=== PATIENT | male | born 1975 | race Caucasian/White ===

== ENCOUNTER 2018-08-03 19:12 | Emergency (ER) | payer SELFPAY ==
[2018-08-03] MEDS ORDERED: NORMAL SALINE 1000 ML 1,000 ML IV ONE (19:39)
[2018-08-03] MEDS ORDERED: ONDANSETRON HCL INJ/PF 4 MG/2 ML SDV IV ONE (19:49)
[2018-08-03] MEDS ORDERED: MORPHINE SULFATE 10 MG/ML INJ IV ONE ×2 (19:49→23:35)
--- NOTE | 2018-08-03 20:41 | RADIOLOGY REPORT (SQ) ---
EXAM DESCRIPTION: ACUTE ABDOMEN SERIES COMPLETED DATE/TIME: 08/03/2018 8:10 pm REASON FOR STUDY: Abdominal pain COMPARISON: None. NUMBER OF VIEWS: Three views. TECHNIQUE: Frontal chest, supine abdomen and upright/decubitus abdomen radiographic images acquired. LIMITATIONS: None. FINDINGS: CHEST: Lungs clear of infiltrates. FREE AIR: None. No abnormal gas collections. BOWEL GAS PATTERN: Nonobstructive pattern. No dilated loops or air fluid levels. CALCIFICATIONS: No suspicious calcifications. HARDWARE: None in the abdomen. SOFT TISSUES: No gross mass or suggestion of organomegaly. BONES: No acute fracture. No worrisome bone lesions. OTHER: No other significant finding. IMPRESSION: NO RADIOGRAPHIC EVIDENCE FOR ACUTE ABDOMINAL DISEASE. TECHNICAL DOCUMENTATION: JOB ID: [id number] [employer]- All Rights Reserved Reading location - IP/workstation name: [email or web address]
[2018-08-03 21:06] LABS: ABSOLUTE BASOPHILS # (AUTO) 0.1 10^3/uL (0.0-0.2); ABSOLUTE EOSINOPHILS # (AUTO) 0.2 10^3/uL (0.0-0.6); ABSOLUTE LYMPHOCYTES (AUTO) 1.5 10^3/uL (0.5-4.7); ABSOLUTE MONOCYTES (AUTO) 0.7 10^3/uL (0.1-1.4); ABSOLUTE NEUT (AUTO) 3.7 10^3/uL (1.7-8.2); EOSINOPHILS % (AUTO) 3.4 % (0-6); HEMATOCRIT 46.8 % (37.9-51.0); HEMOGLOBIN 16.5 g/dL (13.5-17.0); LYMPHOCYTES % (AUTO) 24.6 % (13-45); MEAN CORPUSCULAR HEMOGLOBIN 32.8 pg (27.0-33.4); MEAN CORPUSCULAR HGB CONC 35.4 g/dL (32.0-36.0); MEAN CORPUSCULAR VOLUME 93 fl (80-97); MONOCYTES % (AUTO) 10.8 % (3-13); PLATELET COUNT 163 10^3/uL (150-450); RED BLOOD COUNT 5.05 10^6/uL (4.35-5.55); RED CELL DISTRIBUTION WIDTH 13.4 % (11.5-14.0); SEGMENTED NEUTROPHILS % (AUTO) 60.2 % (42-78); TOTAL CELLS COUNTED % (AUTO) 100 %; WHITE BLOOD COUNT 6.1 10^3/uL (4.0-10.5)
--- NOTE | 2018-08-03 21:07 | ER Document Report ---
ED General - General Chief Complaint: Lower Abdominal Pain Stated Complaint: ABDOMINAL PAIN Time Seen by Provider: 08/03/18 19:38 Notes: Patient is a 43-year-old male who presents to the emergency department with testicular pain which started at 5:00 this morning. He states, "I feel like somebody is crushing my balls." He states his pain is a 10/10. Nothing makes the pain better or worse. The pain originates in his testicles and radiates to his lower abdomen. He stated that he attempted to ejaculate to try to relieve the pain, but it did not. Patient states he has not been sexually active in many years. He has a past medical history of Crohn's disease, in which he states he has run out of his medications these past few weeks. His other medical history includes pancreatitis and GERD. TRAVEL OUTSIDE OF THE [place] IN LAST 30 DAYS: No - HPI Onset/Duration: Sudden - Related Data Allergies/Adverse Reactions: hydrocodone bitartrate [From Vicodin] Allergy (Unknown, Verified 05/14/13 23:49) Past Medical History - Social History Smoking Status: Current Every Day Smoker Chew tobacco use (# tins/day): No Frequency of alcohol use: Occasional Drug Abuse: None Family History: Reviewed & Not Pertinent Patient has suicidal ideation: No Patient has homicidal ideation: No - Past Medical History Cardiac Medical History: Denies: Hx Coronary Artery Disease, Hx Heart Attack, Hx Hypertension Pulmonary Medical History: Denies: Hx Asthma, Hx Bronchitis, Hx COPD, Hx Pneumonia Neurological Medical History: Denies: Hx Cerebrovascular Accident, Hx Seizures Renal/ Medical History: Denies: Hx Peritoneal Dialysis GI Medical History: Reports: Hx Gastroesophageal Reflux Disease Musculoskeletal Medical History: Denies Hx Arthritis Psychiatric Medical History: Denies: Hx Depression Past Surgical History: Denies: Hx Pacemaker - Immunizations Immunizations up to date: Yes Hx Diphtheria, Pertussis, Tetanus Vaccination: Yes Hx Pneumococcal Vaccination: 11/01/00 Physical Exam - Vital signs Vitals: Temp Pulse Resp BP Pulse Ox 98.3 F 133 H 22 H 155/93 H 98 08/03/18 19:21 08/03/18 19:21 08/03/18 19:21 08/03/18 19:21 08/03/18 19:21 - Respiratory Respiratory status: No respiratory distress Chest status: Nontender Breath sounds: Normal Chest palpation: Normal - Cardiovascular Pulses: Normal: Radial, Dorsalis pedis - Abdominal Inspection: Normal Bowel sounds: Normal Tenderness: Tender - Lower abdomen - Genitourinary Tenderness: Testicle tender Course - Re-evaluation Re-evalutation: 08/03/18 21:07 Patient's abdominal x-rays are negative at this time. He is currently going to ultrasound for evaluation of his testicular pain. Cremasteric reflex was tested with SHEBA Sebastian at bedside. Patient has a positive cremasteric reflex, therefore I do not suspect testicular torsion. Labs and further imaging will be evaluated when they result. 08/04/18 00:30 I have contacted ultrasound to follow-up on results of scrotal ultrasound, and was told that for some reason the reports are not resulting from the radiologist. Ultrasound will contact the radiologist and send study to the radiologist. 08/04/18 01:02 Patient reevaluated at this time he states his pain is better than before. 08/04/18 01:37 Patient's scrotal ultrasound was reviewed at this time. Patient has a varicocele on his left side. Patient was educated on home treatment for varicoceles. He verbally understands his discharge instructions and states he will buy supportive briefs to help with his varicocele - Vital Signs Vital signs: Temp Pulse Resp BP Pulse Ox 98.3 F 133 H 18 117/72 98 08/03/18 19:21 08/03/18 19:21 08/04/18 01:01 08/04/18 01:01 08/04/18 01:01 - Laboratory Result Diagrams: 08/03/18 20:43 08/03/18 20:43 Laboratory results interpreted by me: 08/03/18 20:43 BUN 6 L Direct Bilirubin 0.6 H AST 236 H ALT 254 H Discharge - Discharge Clinical Impression: Varicocele, Scrotal pain, Elevated liver enzymes Condition: Stable Disposition: HOME, SELF-CARE Additional Instructions: You have been diagnosed with a varicocele. Please use supportive briefs to help decrease the pain in your scrotum. You can use [id number] Aleve 500 mg twice a day as needed for pain. Please follow-up in 2-3 days with your primary care provider. Your labs showed that you have elevated liver enzymes. Please follow-up with your primary care provider in regards to this matter. If you feel your symptoms are getting worse, have shortness of breath, worsening scrotal pain, fever, or anything worrisome to you, please return to the emergency department for further evaluation. Referrals: HEMA KERNS PA-C [ALLIED HEALTH PROFESSIONAL] - Follow up as needed
[2018-08-03 21:16] LABS: ALANINE AMINOTRANSFERASE 254 U/L (21-72); ALBUMIN 4.4 g/dL (3.5-5.0); ALKALINE PHOSPHATASE 112 U/L (38-126); ANION GAP 12 (5-19); ASPARTATE AMINO TRANSFERASE 236 U/L (17-59); BILIRUBIN,DIRECT 0.6 mg/dL (0.0-0.4); BILIRUBIN,TOTAL 0.6 mg/dL (0.2-1.3); BLOOD UREA NITROGEN 6 mg/dL (7-20); CALCIUM 9.4 mg/dL (8.4-10.2); CARBON DIOXIDE 23 mmol/L (22-30); CHLORIDE 103 mmol/L (98-107); GLUCOSE 101 mg/dL (75-110); LIPASE 139.2 U/L (23-300); POTASSIUM 4.2 mmol/L (3.6-5.0); SODIUM 137.7 mmol/L (137-145); TOTAL PROTEIN 7.9 g/dL (6.3-8.2)
[2018-08-03 21:31] LABS: APPEARANCE,URINE CLEAR; BILIRUBIN,URINE NEGATIVE (NEGATIVE); COLOR,URINE STRAW; GLUCOSE, URINE NEGATIVE (NEGATIVE); KETONES,URINE NEGATIVE (NEGATIVE); LEUKOCYTE ESTERASE,URINE NEGATIVE (NEGATIVE); NITRITE,URINE NEGATIVE (NEGATIVE); PROTEIN,URINE NEGATIVE (NEGATIVE); URINE SPECIFIC GRAVITY 1.002; UROBILINOGEN,URINE NEGATIVE mg/dL (<2.0)
[2018-08-03 21:46] LABS: URINE AMPHETAMINES SCREEN NEGATIVE; URINE BARBITURATES SCREEN NEGATIVE; URINE BENZODIAZEPINES SCREEN NEGATIVE; URINE COCAINE SCREEN NEGATIVE; URINE MARIJUANA (THC) SCREEN NEGATIVE; URINE METHADONE SCREEN NEGATIVE; URINE PHENCYCLIDINE SCREEN NEGATIVE
--- NOTE | 2018-08-04 01:07 | RADIOLOGY REPORT (SQ) ---
EXAM DESCRIPTION: US SCROTUM COMPLETED DATE/TME: 08/03/2018 19:39 CLINICAL HISTORY: 43 years Male, Scrotal pain rule out torsion COMPARISON: None. TECHNIQUE: Real-time sonographic images of the scrotal contents obtained using a linear multi hertz transducer. Color and spectral Doppler imaging was also obtained. FINDINGS: Testicles: The right testicle measures 4.5 x 3.0 x 3.7 cm. The left testicle measures 5.0 x 2.6 x 3.4 cm. No solid intratesticular mass identified. Homogenous echogenicity of the testicles. Epididymis:No abnormalities of the epididymis. Hydrocele:No hydrocele. Blood flow:Normal arterial and venous blood flow identified bilaterally. Other: Dilation of the left peritesticular veins IMPRESSION: 1. Blood flow identified in the testicles bilaterally. 2. Left-sided varicocele.
[2018-08-04 02:20] VITALS: BP 109/79
== END 2018-08-04 02:28 | disposition home or self-care (01) ==
LOC: ER 19:12
DX: I86.1 Scrotal varices (principal); N50.819 Testicular pain, unspecified; R74.8 Abnormal levels of other serum enzymes; F17.200 Nicotine dependence, unspecified, uncomplicated; Z88.5 Allergy status to narcotic agent
CPT/HCPCS: 96376; 99284; 96361; 96374; 96375; 36415; 83690; 85025; 80053; 81001; 80307; 74022; 76870; J2270; J2405

== ENCOUNTER 2018-09-26 07:09 | Emergency (ER) | payer SELFPAY ==
[2018-09-26] MEDS ORDERED: KETOROLAC TROMETHAMINE 60 MG/2 ML SDV IM ONE (07:35)
--- NOTE | 2018-09-26 07:40 | ER Document Report ---
HPI - HPI Pain Level: 4 Notes: Patient is a 43-year-old male with a history of carpal tunnel syndrome and Crohn 's disease who presents to the ED complaining of acute on chronic left wrist pain over the last week. Patient states that he does work a lot with his hands and is not sure if the fall he had last week is causing his pain or other repetitive motion and flareup of his carpal tunnel. Patient states that the pain is primarily to his anterior wrist and will radiate proximally and send tingling/numbness to his fingers. He has not noticed any obvious bruising or swelling otherwise. He has been using his volar wrist splint regularly. He has not been seen by a specialist for this issue. No other concerns or complaints. Denies any headache, fever, URI, sore throat, chest pain, palpitations, syncope, cough, shortness of breath, wheeze, dyspnea, abdominal pain, nausea/vomiting/diarrhea, urinary retention, dysuria, hematuria, saddle anesthesia, muscle paralysis/weakness, or rash. - ROS Systems Reviewed and Negative: Yes All other systems reviewed and negative - REPRODUCTIVE Reproductive: DENIES: : Past Medical History - Social History Smoking Status: Current Every Day Smoker Family History: Reviewed & Not Pertinent - Past Medical History Cardiac Medical History: Denies: Hx Coronary Artery Disease, Hx Heart Attack, Hx Hypertension Pulmonary Medical History: Denies: Hx Asthma, Hx Bronchitis, Hx COPD, Hx Pneumonia Neurological Medical History: Denies: Hx Cerebrovascular Accident, Hx Seizures Renal/ Medical History: Denies: Hx Peritoneal Dialysis GI Medical History: Reports: Hx Gastroesophageal Reflux Disease Musculoskeletal Medical History: Denies Hx Arthritis Psychiatric Medical History: Denies: Hx Depression Past Surgical History: Denies: Hx Pacemaker - Immunizations Immunizations up to date: Yes Hx Diphtheria, Pertussis, Tetanus Vaccination: Yes Hx Pneumococcal Vaccination: 11/01/00 Vertical Provider Document - CONSTITUTIONAL Agree With Documented VS: Yes Notes: PHYSICAL EXAMINATION: GENERAL: Well-appearing, well-nourished and in no acute distress. LUNGS: Breath sounds clear to auscultation bilaterally and equal. No wheezes rales or rhonchi. HEART: Regular rate and rhythm without murmurs, rubs, gallops. Musculoskeletal: Left wrist: FROM to passive/active. Strength 5+/5. N/V intact distal. + mild anterior tenderness to palp and to the lateral carpal bones, no scaphoid tenderness. + mild swelling. No ecchymosis, erythema, or deformity. + tinel/phalen. Extremities: No cyanosis, clubbing, or edema b/l. Peripheral pulses 2+. Capillary refill less than 3 seconds. NEUROLOGICAL: Normal speech, normal gait. Normal sensory, motor exams PSYCH: Normal mood, normal affect. SKIN: Warm, Dry, normal turgor, no rashes or lesions noted. - INFECTION CONTROL TRAVEL OUTSIDE OF THE [place] IN LAST 30 DAYS: No Course - Re-evaluation Re-evalutation: 09/26/18 09:25 Patient is an afebrile, well-hydrated, 43 year-old male who presents to the ED with a possible avulsion fracture to the left carpal bones/wrist with s/s of CTS. Vitals are acceptable without any significant tachycardia, tachypnea, or hypoxia. PE is otherwise unremarkable for any neurovascular compromise, obvious tendon/ligament rupture, open fracture, septic joint. See XR result. Splint applied today and provided. Toradol given IM. Patient is nontoxic- appearing. No other labs or imaging warranted at this time based on H&P. Conservative measures otherwise for symptoms. Recheck with your PCM in 3-5 days. Call orthopedics tomorrow to schedule an appointment for further evaluation and management. Return to the ED with any worsening/concerning symptoms otherwise as reviewed in discharge. Patient is in agreement. - Vital Signs Vital signs: Temp Pulse Resp BP Pulse Ox 98.0 F 106 H 18 134/73 H 99 09/26/18 07:21 09/26/18 07:21 09/26/18 07:21 09/26/18 07:21 09/26/18 07:21 Procedures - Immobilization Left Wrist Time completed: 09:20 Pre-Proc Neuro Vasc Exam: Normal Immobilizer type: Volar splint Performed by: PCT Post-Proc Neuro Vasc Exam: Normal, Unchanged from pre-exam Discharge - Discharge Clinical Impression: Avulsion fracture of left wrist Carpal tunnel syndrome Qualifiers: Laterality: left Qualified Code(s): G56.02 - Carpal tunnel syndrome, left upper limb Condition: Stable Disposition: HOME, SELF-CARE Instructions: Splint Precautions ([facility]) Additional Instructions: Rest, Ice, Compression, Elevation Use splint as directed Tylenol/ibuprofen as needed F/u with your PCP in 3-5 days for a recheck Call orthopedics tomorrow to schedule an appointment for further evaluation and management Return to the ED with any worsening symptoms and/or development of fever, headache, chest pain, palpitations, syncope, shortness of breath, trouble breathing, abdominal pain, n/v/d, muscle weakness/paralysis, numbness/tingling, swelling, redness, or other worsening symptoms that are concerning to you. Prescriptions: Naproxen 500 mg PO BID #14 tablet Forms: Elevated Blood Pressure, Smoking Cessation Education Referrals: ZAY REED FNP [NURSE PRACTITIONER] - Follow up as needed [facility] [Provider Group] - Follow up in 3-5 days
--- NOTE | 2018-09-26 08:30 | RADIOLOGY REPORT (SQ) ---
EXAM DESCRIPTION: WRIST LEFT 3 VIEWS COMPLETED DATE/TIME: 09/26/2018 7:45 am REASON FOR STUDY: left wrist pain fell 1 week ago with continued pain and swelling COMPARISON: None. NUMBER OF VIEWS: Three views. TECHNIQUE: AP, lateral, and oblique radiographic images acquired of the left wrist. LIMITATIONS: None. FINDINGS: MINERALIZATION: Normal. BONES: On the lateral view, a small bone fragment is seen along the dorsal carpal bones which may rep resent a small avulsion fragment off the hamate. Remainder of the carpal bones are intact. No scaphoid bone fracture is identified. Minimal widening of the scapholunate interval. SOFT TISSUES: Diffuse left wrist soft tissue swelling. No foreign body. OTHER: No other significant finding. IMPRESSION: Small bony fragment is seen on the lateral view, along the dorsal aspect of the carpal b ones. This may represent a small avulsion off the hamate or capitate bone. Diffuse left wrist soft tissue swelling TECHNICAL DOCUMENTATION: JOB ID: [id number] [employer]- All Rights Reserved Reading location - IP/workstation name: [email or web address]
[2018-09-26 09:49] VITALS: BP 141/88
== END 2018-09-26 09:47 | disposition home or self-care (01) ==
LOC: ER 07:09
DX: S62.102A Fracture of unspecified carpal bone, left wrist, initial encounter for closed fracture (principal); W19.XXXA Unspecified fall, initial encounter; G56.02 Carpal tunnel syndrome, left upper limb; F17.200 Nicotine dependence, unspecified, uncomplicated
CPT/HCPCS: 99283; 96372; 73110; 29125; J1885

== ENCOUNTER 2018-12-10 19:32 | Emergency (ER) | payer SELFPAY ==
[2018-12-10] MEDS ORDERED: LIDOCAINE 2% VISCOUS SOLN 20 ML UDCUP PO ONE (20:31)
[2018-12-10] MEDS ORDERED: IBUPROFEN 600 MG TABLET PO ONE (20:35)
[2018-12-10] MEDS ORDERED: ACETAMINOPHEN 325 MG TABLET PO ONE (20:35)
--- NOTE | 2018-12-10 20:37 | ER Document Report ---
HPI - HPI Time Seen by Provider: 12/10/18 20:30 Pain Level: 5 Notes: Patient is a 43-year-old male who presents the emergency department complaining of a stye to each lower eyelid that has been present for the last 1-2 days. Patient states that he has had styes in the past that caused similar discomfort and pain. Patient states he does not open his eyes because it hurts. Patient states that he has not been scratching in his eye and he does not have any foreign body sensation. Patient states that the pain is strictly to the styes to the lower eyelids. No other concerns or complaints. He does not wear contact lenses. Denies any fever, head injury, neck pain, changes in vision/speech/mentation/hearing, URI, sore throat, chest pain, palpitations, syncope, cough, shortness of breath, wheeze, dyspnea, abdominal pain, nausea/vomiting/diarrhea, urinary retention, dysuria, hematuria, or rash. - ROS Systems Reviewed and Negative: Yes All other systems reviewed and negative - REPRODUCTIVE Reproductive: DENIES: : Past Medical History - Social History Smoking Status: Unknown if Ever Smoked Family History: Reviewed & Not Pertinent - Past Medical History Cardiac Medical History: Denies: Hx Coronary Artery Disease, Hx Heart Attack, Hx Hypertension Pulmonary Medical History: Denies: Hx Asthma, Hx Bronchitis, Hx COPD, Hx Pneumonia Neurological Medical History: Denies: Hx Cerebrovascular Accident, Hx Seizures Renal/ Medical History: Denies: Hx Peritoneal Dialysis GI Medical History: Reports: Hx Gastroesophageal Reflux Disease Musculoskeletal Medical History: Denies Hx Arthritis Psychiatric Medical History: Denies: Hx Depression Past Surgical History: Denies: Hx Pacemaker - Immunizations Immunizations up to date: Yes Hx Diphtheria, Pertussis, Tetanus Vaccination: Yes Hx Pneumococcal Vaccination: 11/01/00 Vertical Provider Document - CONSTITUTIONAL Agree With Documented VS: Yes Notes: PHYSICAL EXAMINATION: GENERAL: Well-appearing, well-nourished and in no acute distress. A&Ox4 HEAD: Atraumatic, normocephalic. EYES: Pupils equal round and reactive to light, extraocular movements intact, sclera anicteric, conjunctiva w/o discharge or matting. Non-tender to palp of the globe and eye itself. No surrounding erythema or swelling noted. + stye to the left lower lid and to the rt lower lid. The stye on the left has a white abscess appearance, although small. + tenderness to the styes b/l. ENT: EAC clear b/l. TM's intact b/l without erythema, fluid, or perforation. Nares patent and without discharge. oropharynx clear without exudates. No tonsilar hypertrophy or erythema. Moist mucous membranes. No sinus tenderness. Uvula midline. No palatine shift. No airway compromise. No drooling or hoarseness. NECK: Normal range of motion, supple without lymphadenopathy. No rigidity/meningismus. LUNGS: Breath sounds clear to auscultation bilaterally and equal. No wheezes rales or rhonchi. HEART: Regular rate and rhythm without murmurs, rubs, gallops. NEUROLOGICAL: Cranial nerves grossly intact. Normal speech, normal gait. PSYCH: Normal mood, normal affect. SKIN: see above. - INFECTION CONTROL TRAVEL OUTSIDE OF THE [place] IN LAST 30 DAYS: No Course - Re-evaluation Re-evalutation: 12/10/18 20:40 Patient is an afebrile, well-hydrated, 43-year-old male who presents the emergency department with bilateral stye. Vitals are acceptable without significant tachycardia, tachypnea, or hypoxia. PE is otherwise unremarkable. A needle puncture incision and drainage was performed on the left lower stye with some purulent material expressed and wound culture obtained. Patient was given 2-3 cc viscous lidocaine to use as needed only on the styes (outside). No labs or imaging otherwise warranted. Low suspicion for any retained corneal or lid foreign body, deep space infection including orbital cellulitis/abscess, acute glaucoma, penetrating globe injury, retinal detachment, meningitis, sepsis, fracture, compartment syndrome. I will send home with a prescription for erythromycin ointment to use as directed. Conservative measures otherwise for symptoms with proper handwashing. Recheck with your PCM in 3-5 days. Schedule a f/u with Ophthalmology next week. Return to the ED with any worsening/concerning symptoms otherwise as reviewed in discharge. Patient is in agreement. - Vital Signs Vital signs: Temp Pulse Resp BP Pulse Ox 98.3 F 102 H 20 163/92 H 98 12/10/18 19:45 12/10/18 19:45 12/10/18 19:45 12/10/18 19:45 12/10/18 19:45 Procedures - Incision and Drainage Left Eye Time completed: 20:30 Type: Simple Incision Method: Incision made with needle - 25g Amount/type of drainage: scant purulent Discharge - Discharge Clinical Impression: Bilateral Styes lower eyelid Hordeolum externum (stye) Qualifiers: Laterality: unspecified laterality Qualified Code(s): H00.019 - Hordeolum externum unspecified eye, unspecified eyelid Condition: Stable Disposition: HOME, SELF-CARE Additional Instructions: Keep eyes clean Avoid scratching/touching eyes Wash hands regularly Use eye drops as directed Maintain adequate fluid intake tylenol/ibuprofen as needed over the counter cold medication as needed for symptoms F/u: with your PCM in 3-5 days for a recheck Consider consult with Ophthalmology for ongoing/worsening symptoms Return to the ED with any worsening symptoms and/or development of fever, headache, changes in vision, eye pain, worsening eye redness, redness around the eyes, purulent discharge, sore throat, facial swelling, neck pain/stiffness, chest pain, palpitations, syncope, shortness of breath, trouble breathing, abdominal pain, n/v/d, blood in stool/urine, dysuria, or other worsening symptoms that are concerning to you. Prescriptions: Erythromycin Base [Erythromycin Oph 1 gm Oint Ud] 1 applic OU QID #1 tube Forms: Elevated Blood Pressure Referrals: FLOWER JETER MD [ACTIVE STAFF] - Follow up as needed
[2018-12-10 20:51] VITALS: BP 149/88
== END 2018-12-10 20:50 | disposition home or self-care (01) ==
LOC: ER 19:32
DX: H00.015 Hordeolum externum left lower eyelid (principal); H00.012 Hordeolum externum right lower eyelid
CPT/HCPCS: 99283; 87070; 87205; 87075; 67700; J3490

== ENCOUNTER 2019-04-28 08:01 | Emergency (ER) | payer SELFPAY ==
[2019-04-28] MEDS ORDERED: EPINEPHRINE INJ/PF 1 MG/1 ML AMPULE ONE (08:11)
[2019-04-28] MEDS ORDERED: METHYLPREDNISOLONE INJ 125 MG/2 ML SDV ONE (08:15)
[2019-04-28] MEDS ORDERED: FAMOTIDINE INJ/PF 20 MG/2 ML SDV IV ONE ×2 (08:15→08:58)
[2019-04-28] MEDS ORDERED: DIPHENHYDRAMINE HCL 50 MG/ML VIAL ONE (08:15)
[2019-04-28] MEDS ORDERED: NORMAL SALINE 1000 ML 1,000 ML IV ONE (08:20)
--- NOTE | 2019-04-28 08:28 | ER Document Report ---
ED General - General Stated Complaint: POSSIBLE ALLERGIC REACTION Time Seen by Provider: 04/28/19 08:19 Primary Care Provider: ZAY REED FNP [NURSE PRACTITIONER] - Follow up in 3-5 days TRAVEL OUTSIDE OF THE [place] IN LAST 30 DAYS: No - HPI Notes: 43-year-old male to the emergency department with complaints of a bee sting and immediate and worsening rash to the lower legs abdomen back and chest that occurred just prior to arrival. Patient states that he was weed whacking when a bee stung him. He has a known allergy to bee stings and has had in the past to use his EpiPen. States that he only had one EpiPen left and he did not want to use it so he came immediately to the emergency department. Friend at bedside says that his EpiPen is actually . Patient states he does feel little short of breath but denies any tongue swelling, difficulty swallowing, wheezing, chest pain. - Related Data Allergies/Adverse Reactions: hydrocodone bitartrate [From Vicodin] Allergy (Unknown, Verified 12/10/18 20:44) Past Medical History - General Information source: Patient, Friend - Social History Smoking Status: Current Every Day Smoker Family History: Reviewed & Not Pertinent - Past Medical History Cardiac Medical History: Denies: Hx Coronary Artery Disease, Hx Heart Attack, Hx Hypertension Pulmonary Medical History: Denies: Hx Asthma, Hx Bronchitis, Hx COPD, Hx Pneumonia Neurological Medical History: Denies: Hx Cerebrovascular Accident, Hx Seizures Renal/ Medical History: Denies: Hx Peritoneal Dialysis GI Medical History: Reports: Hx Gastroesophageal Reflux Disease Musculoskeletal Medical History: Denies Hx Arthritis Psychiatric Medical History: Denies: Hx Depression Past Surgical History: Denies: Hx Pacemaker - Immunizations Immunizations up to date: Yes Hx Diphtheria, Pertussis, Tetanus Vaccination: Yes Hx Pneumococcal Vaccination: 11/01/00 Review of Systems - Review of Systems Constitutional: denies: Chills, Fever EENT: denies: No symptoms reported Cardiovascular: denies: Chest pain, Syncope, Dizziness, Lightheaded Respiratory: Short of breath. denies: Cough, Wheezing Gastrointestinal: No symptoms reported Genitourinary: No symptoms reported Skin: Rash - Staying to the right ankle. Progressively worsening itchy and red rash to bilateral legs trunk and back Neurological/Psychological: No symptoms reported -: Yes All other systems reviewed and negative Physical Exam - Vital signs Vitals: Pulse Resp Pulse Ox 121 H 22 H 100 04/28/19 08:07 04/28/19 08:07 04/28/19 08:07 Interpretation: Normal, Tachycardic, Tachypneic - General General appearance: Anxious In distress: Mild - Patient appears anxious. He is not in respiratory distress - HEENT Head: Normocephalic, Atraumatic Conjunctiva: Normal Cornea: Normal Pupils: PERRL Mouth/Lips: Normal. No: Angioedema Mucous membranes: Dry Pharynx: Normal, Other - There is no tongue swelling, no uvular swelling, no lip swelling. Airway is grossly patent.. No: Uvular edema, Potential airway comp rom. Neck: Normal - Respiratory Respiratory status: No respiratory distress Chest status: Nontender Breath sounds: No: Decreased air movement, Rales, Rhonchi, Stridor, Wheezing Chest palpation: Normal - Cardiovascular Rhythm: Tachycardia Heart sounds: Normal auscultation Murmur: No - Abdominal Inspection: Other - Noted urticarial rash to the abdomen - Back Back: Normal - Extremities General upper extremity: Normal ROM General lower extremity: Normal ROM, Normal weight bearing - Neurological Neuro grossly intact: Yes Cognition: Normal Orientation: AAOx4 [place] Coma Scale Eye Opening: Spontaneous [place] Coma Scale Verbal: Oriented [place] Coma Scale Motor: Obeys Commands [place] Coma Scale Total: 15 Speech: Normal Cranial nerves: Normal Cerebellar coordination: Normal Motor strength normal: LUE, RUE, LLE, RLE Additional motor exam normals: No: Pronator drift - Psychological Associated symptoms: Anxious, Tearful - Skin Skin Temperature: Hot Skin Color: Erythema Skin irregularity: Rash - There is a your urticarial rash to bilateral legs, abdomen, back, chest that is coalescing. There is a noted small bee sting to the right lower ankle. There is no desquamation, sloughing, blistering, necrosis, corrugations, superimposed infection, purulent drainage. Course - Re-evaluation Re-evalutation: 04/28/19 10:05 Patient is doing better. Decrease of erythema to the legs back and abdomen. Patient is much more calm. Heart rate is now 99. Repeat inspection of mouth again reveals no lip swelling, tongue swelling, uvular swelling. His airway remains grossly patent. - Vital Signs Vital signs: Temp Pulse Resp BP Pulse Ox 98 F 123 H 16 133/85 H 100 04/28/19 08:59 04/28/19 08:12 04/28/19 12:56 04/28/19 12:56 04/28/19 12:56 - Laboratory Result Diagrams: 04/28/19 08:19 04/28/19 08:19 Laboratory results interpreted by me: 04/28/19 04/28/19 08:19 08:19 Hgb 17.2 H RDW 14.5 H Potassium 3.4 L Carbon Dioxide 20 L Glucose 238 H AST 126 H ALT 74 H - Transfer of Care Notes: 04/28/19 08:[address] Salvador, ER attending. Is aware patient's presentation with noted severe urticaria coalescing rash to the legs all the way up to the neck. Patient has a history of severe allergic reaction to bee stings and he was stung this morning while weed eating. Epinephrine was given IM, Solu- Medrol, Benadryl, Pepcid given IV. Labs ordered, normal saline bolus ordered. Patient will be monitored for several hours after getting epinephrine. Patient does not have any oral involvement specifically has no tongue swelling, uvular swelling, lip swelling. Chest auscultation reveals no wheezing. He is moderately anxious but is not in any respiratory distress. 04/28/19 12:07 Progress: Rounded on Patient several times and he continues to improve. Most recently he has had significant improvement of his rash, redness has decreased quite a lot, hives no longer coalescing. Patient is no longer itching. His airway remains patent, no tongue, lip, or uvular swelling. IMpression: Allergic reaction to bee sting. Patient was given Benadryl, Solumedrol, Epi, and pepcid. He was monitored for four hours. He has done well since and has signficant improvement. Will plan on discharging patient. Will write for medrol dose maximino, EPI pen, Benadryl, and pepcid. Encouraged to Discharge - Discharge Clinical Impression: Allergic reaction, Bee sting Disposition: HOME, SELF-CARE Instructions: Acute Allergic Reaction ([facility]), Insect Sting ([facility]) Additional Instructions: MONITOR FOR ANY WORSENING SYMPTOMS. RETURN IF WORSE. COMPLETE STEROIDS, CONTINUE TO USE BENADRYL AND PEPCID. FILL YOUR EPI PEN. USE IT DIRECTED IF YOU GET STUNG. REST AT HOME. Prescriptions: Diphenhydramine HCl [Benadryl] 25 - 50 mg PO Q8H #20 capsule Epinephrine [Epipen 2-Maximino] 0.3 mg IM ASDIR PRN #1 packet PRN Reason: Famotidine [Pepcid 20 mg Tablet] 20 mg PO BID #12 tablet Methylprednisolone [Medrol Dosepack (4 mg/Tab) 21 Tab/Dosepak] 4 mg PO ASDIR #21 tab.ds.pk Referrals: ZAY REED FNP [NURSE PRACTITIONER] - Follow up in 3-5 days
[2019-04-28 08:30] LABS: ABSOLUTE EOSINOPHILS # (AUTO) 0.1 10^3/uL (0.0-0.6); ABSOLUTE LYMPHOCYTES (AUTO) 2.1 10^3/uL (0.5-4.7); ABSOLUTE MONOCYTES (AUTO) 0.7 10^3/uL (0.1-1.4); BASOPHILS % (AUTO) 0.4 % (0-2); EOSINOPHILS % (AUTO) 1.2 % (0-6); HEMOGLOBIN 17.2 g/dL (13.5-17.0); LYMPHOCYTES % (AUTO) 30.2 % (13-45); MEAN CORPUSCULAR HGB CONC 34.3 g/dL (32.0-36.0); MEAN CORPUSCULAR VOLUME 93 fl (80-97); MONOCYTES % (AUTO) 9.5 % (3-13); PLATELET COUNT 186 10^3/uL (150-450); RED BLOOD COUNT 5.37 10^6/uL (4.35-5.55); RED CELL DISTRIBUTION WIDTH 14.5 % (11.5-14.0); SEGMENTED NEUTROPHILS % (AUTO) 58.7 % (42-78); TOTAL CELLS COUNTED % (AUTO) 100 %; WHITE BLOOD COUNT 6.9 10^3/uL (4.0-10.5)
[2019-04-28 08:54] LABS: ALANINE AMINOTRANSFERASE 74 U/L (21-72); ALBUMIN 4.7 g/dL (3.5-5.0); ALKALINE PHOSPHATASE 93 U/L (38-126); ANION GAP 14 (5-19); ASPARTATE AMINO TRANSFERASE 126 U/L (17-59); BILIRUBIN,DIRECT 0.4 mg/dL (0.0-0.4); BILIRUBIN,TOTAL 0.8 mg/dL (0.2-1.3); BLOOD UREA NITROGEN 8 mg/dL (7-20); CALCIUM 9.3 mg/dL (8.4-10.2); CARBON DIOXIDE 20 mmol/L (22-30); CHLORIDE 103 mmol/L (98-107); GLUCOSE 238 mg/dL (75-110); POTASSIUM 3.4 mmol/L (3.6-5.0); SODIUM 137.3 mmol/L (137-145); TOTAL PROTEIN 7.7 g/dL (6.3-8.2)
[2019-04-28] MEDS ORDERED: DIPHENHYDRAMINE HCL 50 MG/ML VIAL IV ONE ×2 (08:58→10:29)
[2019-04-28] MEDS ORDERED: METHYLPREDNISOLONE INJ 125 MG/2 ML SDV IV ONE (08:58)
[2019-04-28] MEDS ORDERED: EPINEPHRINE INJ/PF 1 MG/1 ML AMPULE IM ONE (09:00)
[2019-04-28 13:01] VITALS: BP 133/85
== END 2019-04-28 13:01 | disposition home or self-care (01) ==
LOC: ER 08:01
DX: T63.441A Toxic effect of venom of bees, accidental (unintentional), initial encounter (principal); L50.0 Allergic urticaria; X58.XXXA Exposure to other specified factors, initial encounter; F17.200 Nicotine dependence, unspecified, uncomplicated
CPT/HCPCS: 99283; 96372; 96361; 96374; 96375; 36415; 85025; 80053; J1200; J0171; J2930; J7030; S0028

== ENCOUNTER 2019-07-08 00:20 | Emergency (ER) | payer SELFPAY ==
[2019-07-08] MEDS ORDERED: FAMOTIDINE INJ/PF 20 MG/2 ML SDV IV ONE (01:21)
[2019-07-08] MEDS ORDERED: DIPHENHYDRAMINE HCL 50 MG/ML VIAL IV ONE (01:21)
[2019-07-08] MEDS ORDERED: METHYLPREDNISOLONE INJ 125 MG/2 ML SDV IV ONE (01:21)
--- NOTE | 2019-07-08 01:22 | ER Document Report ---
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 He states he got stung around 3 PM yesterday and was stung on the back of his neck once. He states he broke out in hives and became itchy almost instantaneously. He called EMS then and they gave him IV Benadryl on scene however he felt better and went to sleep and refused to be transported to the hospital then. He states when he woke up a few hrs ago he was itchy all over again and then came to the hospital this time. He has had to use an EpiPen before in the past when this happened. He states his throat is a little scratchy however he is having no trouble breathing, swallowing, or handling secretions currently. He did not take anything prior to arrival for his sx. No history of diabetes or asthma. He does smoke. Denies any illicit drug use or EtOH use. No recent antibiotics or steroids. No other known source or cause. He states the wasp sting on the back of his neck is itchy and nonpainful and he has developed hives over his back, chest, abdomen, bilateral arms and some on his upper thighs since that are worsening. no cp or sob. denies tongue or lip swelling currently. No other complaints at this time. ROS neg to include 10 systems, unless mentioned in the hpi. PE:>>>> PHYSICAL_EXAM: GENERAL_APPEARANCE: well_nourished, alert, cooperative, no_acute_distress, mild_obvious_discomfort. pleasant, thin, middle-aged white male, appears slightly older than stated age, constantly scratching his arms and trunk, smiling, speaking in full sentences, in no sign of pain or resp distress, VITALS: reviewed, see vital signs table. HEAD: no_swelling\tenderness on the head. normocephalic. atraumatic. EYES: PERRL, EOMI, conjunctiva_clear. NOSE: no_nasal_discharge. MOUTH: (-)decreased moisture. THROAT: no_tonsilar_inflammation/hypertrophy/exudate/tenderness, no_airway_obstruction. no_lymphadenopathy. No tongue or lip swelling. No sign of anaphylaxis. No drooling, tripoding, voice change, or stridor. NECK: supple, no_neck_tenderness/swelling, full rom. full strength. no meningeal signs. There is a small punctate area of erythema on the posterior neck consistent with a likely wasp sting. BACK: no_back_tenderness. CHEST_WALL: no_chest_tenderness. no overlying skin changes LUNGS: Mild diffuse scant expiratory wheezes (-)accessory muscle use, good air exchange bilateral. HEART: normal_rate, normal_rhythm, EXTREMITIES: strength 5/5 in all_extremities, good pulses in all_extremities, no_swelling\tenderness in the extremities, no_edema. full rom. normal gait. good pulses. brisk cap refill. good hand proof inspector. NEURO: motor and sensation intact, SKIN: warm, dry, good_color, there are diffuse hives on the anterior and posterior trunk, and bilateral upper extremities MENTAL_STATUS: speech_clear, oriented_X_3, normal_affect, responds_appropriately to questions. MDM: I have ordered the listed IV medication for an acute allergic reaction as an initial work-up and patient will be transferred to the main ER for further work- up. I have greeted and performed a rapid initial assessment of this patient. A comprehensive ED assessment and evaluation of the patient, analysis of test results and completion of the medical decision making process will be conducted by additional ED providers. I have specifically instructed the patient or family members with the patient to immediately return to any nursing staff should anything change in the patient's condition or with their chief complaint. Documentation achieved through voice recording which may lead to some occasional accidental typographical errors. Extensive efforts have been made to proof read documentation to make sure these are as few as possible Category Date Time Status IV [Saline Lock (ED)] NOW Care 07/08/19 01:22 Ordered Diphenhydramine HCl [Benadryl Inj 50 mg/1 ml Vial] Med 07/08/19 01:21 Once 50 mg IV NOW ONE Famotidine/Pf [Pepcid Inj/Pf 20 mg/2 ml Sdv] Med 07/08/19 01:21 Once 20 mg IV NOW ONE Methylprednisolone Sod Succ/Pf [Solu-Medrol Inj/Pf 125 Med 07/08/19 01:21 Once mg/2 ml Sdv] 125 mg IV NOW ONE Temp Pulse Resp BP Pulse Ox 07/08/19 00:24 97.6 F 115 H 24 H 151/93 H 98 TRAVEL OUTSIDE OF THE [place] IN LAST 30 DAYS: No - Related Data Allergies/Adverse Reactions: hydrocodone bitartrate [From Vicodin] Allergy (Unknown, Verified 12/10/18 20:44) Past Medical History - Social History Family history: Reviewed & Not Pertinent - Past Medical History Cardiac Medical History: Denies: Hx Coronary Artery Disease, Hx Heart Attack, Hx Hypertension Pulmonary Medical History: Denies: Hx Asthma, Hx Bronchitis, Hx COPD, Hx Pneumonia Neurological Medical History: Denies: Hx Cerebrovascular Accident, Hx Seizures Renal/ Medical History: Denies: Hx Peritoneal Dialysis GI Medical History: Reports: Hx Gastroesophageal Reflux Disease Musculoskeltal Medical History: Denies Hx Arthritis Psychiatric Medical History: Denies: Hx Depression Past Surgical History: Denies: Hx Pacemaker - Immunizations Immunizations up to date: Yes Hx Diphtheria, Pertussis, Tetanus Vaccination: Yes Physical Exam - Vital signs Vitals: Temp Pulse Resp BP Pulse Ox 97.6 F 115 H 24 H 151/93 H 98 07/08/19 00:24 07/08/19 00:24 07/08/19 00:24 07/08/19 00:24 07/08/19 00:24 Course - Vital Signs Vital signs: Temp Pulse Resp BP Pulse Ox 97.6 F 115 H 24 H 151/93 H 98 07/08/19 00:24 07/08/19 00:24 07/08/19 00:24 07/08/19 00:24 07/08/19 00:24
[2019-07-08 04:16] VITALS: BP 129/79
--- NOTE | 2019-07-08 04:22 | ER Document Report ---
ED Allergic Reaction - General Chief Complaint: Allergic Reaction Stated Complaint: POSSIBLE ALLERGIC REACTION Time Seen by Provider: 07/08/19 01:16 Primary Care Provider: ZAY REED FNP [Primary Care Provider] - Follow up as needed Notes: Patient is a 43-year-old male that comes emergency department for chief complaint of a wasp sting to the back of his neck. He states that he was stung at 3 PM yesterday, he states he broke out in hives almost immediately, called EMS, they gave him Benadryl, he felt better, went to sleep, had declined transport to the hospital at that time. He states that he woke up and he felt scratchy throat and then again broke out into a rash almost everywhere. Patient states that he was treated again in triage with steroids, antihistamines, and now symptoms have again completely resolved. He states he has an EpiPen at home somewhere but he could not find it. 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 He denies any current complaints. TRAVEL OUTSIDE OF THE [place] IN LAST 30 DAYS: No - Related Data Allergies/Adverse Reactions: hydrocodone bitartrate [From Vicodin] Allergy (Unknown, Verified 12/10/18 20:44) Past Medical History - General Information source: Patient - Social History Smoking Status: Current Every Day Smoker Chew tobacco use (# tins/day): No Frequency of alcohol use: Occasional Drug Abuse: None Lives with: Family Family History: Reviewed & Not Pertinent Patient has suicidal ideation: No Patient has homicidal ideation: No - Past Medical History Cardiac Medical History: Denies: Hx Coronary Artery Disease, Hx Heart Attack, Hx Hypertension Pulmonary Medical History: Denies: Hx Asthma, Hx Bronchitis, Hx COPD, Hx Pneumonia Neurological Medical History: Denies: Hx Cerebrovascular Accident, Hx Seizures Renal/ Medical History: Denies: Hx Peritoneal Dialysis GI Medical History: Reports: Hx Gastroesophageal Reflux Disease Musculoskeletal Medical History: Denies Hx Arthritis Psychiatric Medical History: Denies: Hx Depression Past Surgical History: Denies: Hx Pacemaker - Immunizations Immunizations up to date: Yes Hx Diphtheria, Pertussis, Tetanus Vaccination: Yes Hx Pneumococcal Vaccination: 11/01/00 Review of Systems - Review of Systems Constitutional: No symptoms reported EENT: See HPI Cardiovascular: No symptoms reported Respiratory: No symptoms reported Gastrointestinal: No symptoms reported Genitourinary: No symptoms reported Male Genitourinary: No symptoms reported Musculoskeletal: No symptoms reported Skin: See HPI Hematologic/Lymphatic: No symptoms reported Neurological/Psychological: No symptoms reported Physical Exam - Vital signs Vitals: Temp Pulse Resp BP Pulse Ox 97.6 F 115 H 24 H 151/93 H 98 07/08/19 00:24 07/08/19 00:24 07/08/19 00:07/08/19 00:07/08/19 00:24 - Notes Notes: GENERAL: Alert, interacts well. No acute distress. HEAD: Normocephalic, atraumatic. EYES: Pupils equal, round, and reactive to light. Extraocular movements intact. ENT: Oral mucosa moist, tongue midline. Oropharynx unremarkable. Airway patent. Nares patent, no nasal septal hematoma, TM's intact. NECK: Full range of motion. Supple. Trachea midline. LUNGS: Clear to auscultation bilaterally, no wheezes, rales, or rhonchi. No respiratory distress. HEART: Regular rate and rhythm. No murmur ABDOMEN: Soft, non-tender. Non-distended. EXTREMITIES: Moves all 4 extremities spontaneously. No edema, normal radial and dorsalis pedis pulses bilaterally. No cyanosis. BACK: no cervical, thoracic, lumbar midline tenderness. No saddle anesthesia, normal distal neurovascular exam. Moves all extremities in full range of motion. NEUROLOGICAL: Alert and oriented x3. Normal speech. Cranial nerves II through X II grossly intact. PSYCH: Normal affect, normal mood. SKIN: Warm, dry, normal turgor. No rashes or lesions noted. Course - Re-evaluation Re-evalutation: On my evaluation patient has had complete resolution of his hives. Clear airway, no wheezes, no current complaints. Patient is very satisfied with this and is requesting to go home. He did not require epinephrine. He will be placed on steroids, antihistamines, provided with an epinephrine pen, discussed follow-up, discussed strict return precautions. Patient states understanding and agreement. - Vital Signs Vital signs: Temp Pulse Resp BP Pulse Ox 97.9 F 90 18 129/79 H 99 07/08/19 04:16 07/08/19 04:16 07/08/19 04:16 07/08/19 04:16 07/08/19 04:16 Discharge - Discharge Clinical Impression: Urticaria Allergic reaction Qualifiers: Encounter type: initial encounter Qualified Code(s): T78.40XA - Allergy, unspecified, initial encounter Condition: Stable Disposition: HOME, SELF-CARE Additional Instructions: You have been evaluated and treated for an allergic reaction. Take the cetirizine as prescribed for 1 week, take the prednisone as prescribed to completion, in the event of a severe allergic reaction (swelling of the face, tongue, lips, throat, difficulty breathing, etc. (take the epinephrine pen and return immediately to the emergency department. Follow-up routinely with primary care. Prescriptions: Prednisone [Deltasone 10 mg Tablet] 10 mg PO ASDIR PRN #21 tablet PRN Reason: Epinephrine [Epipen 2-Maximino] 0.3 mg IM ASDIR PRN #1 packet PRN Reason: Cetirizine HCl [Zyrtec 10 mg Tablet] 1 tab PO DAILY #30 tablet Referrals: ZAY REED FNP [Primary Care Provider] - Follow up as needed
== END 2019-07-08 04:40 | disposition home or self-care (01) ==
LOC: ER 00:20
DX: T63.461A Toxic effect of venom of wasps, accidental (unintentional), initial encounter (principal); L50.9 Urticaria, unspecified; R09.89 Other specified symptoms and signs involving the circulatory and respiratory systems; F17.200 Nicotine dependence, unspecified, uncomplicated; Z87.892 Personal history of anaphylaxis; Z88.5 Allergy status to narcotic agent
CPT/HCPCS: 99283; J1200; J2930; S0028

== ENCOUNTER 2019-09-19 19:55 | Emergency (ER) | payer SELFPAY ==
[2019-09-19] MEDS ORDERED: KETOROLAC TROMETHAMINE 60 MG/2 ML SDV IM ONE (20:41)
--- NOTE | 2019-09-19 20:43 | ER Document Report ---
ED Medical Screen (RME) - General Chief Complaint: Knee Injury Stated Complaint: LEG INJURY Time Seen by Provider: 09/19/19 20:36 Primary Care Provider: ZAY REED FNP [Primary Care Provider] - Follow up as needed Notes: Patient is a 44-year-old male who presents to the emergency department with a chief complaint of left knee pain. But an hour prior to arrival the patient was helping a friend throw a deer into a truck and the patient's left knee was up against a trailer hitch. Patient leaned up against the trailer hitch and felt a pop in his knee. Patient thought he was able to stand, but he is unable to bear weight on his knee. Exam: Unable to properly assess the patient, as the patient has multiple layers hunting of clothes on. I have greeted and performed a rapid initial assessment of this patient. A comprehensive ED assessment and evaluation of the patient, analysis of test results and completion of medical decision making process will be conducted by an additional ED providers. TRAVEL OUTSIDE OF THE [place] IN LAST 30 DAYS: No - Related Data Allergies/Adverse Reactions: hydrocodone bitartrate [From Vicodin] Allergy (Unknown, Verified 12/10/18 20:44) Home Medications: crohns medication. protonix Past Medical History - Social History Chew tobacco use (# tins/day): No Frequency of alcohol use: Occasional Drug Abuse: None Family history: Reviewed & Not Pertinent - Past Medical History Cardiac Medical History: Denies: Hx Coronary Artery Disease, Hx Heart Attack, Hx Hypertension Pulmonary Medical History: Denies: Hx Asthma, Hx Bronchitis, Hx COPD, Hx Pneumonia Neurological Medical History: Denies: Hx Cerebrovascular Accident, Hx Seizures Renal/ Medical History: Denies: Hx Peritoneal Dialysis GI Medical History: Reports: Hx Gastroesophageal Reflux Disease Musculoskeltal Medical History: Denies Hx Arthritis Psychiatric Medical History: Denies: Hx Depression Past Surgical History: Denies: Hx Pacemaker - Immunizations Immunizations up to date: Yes Hx Diphtheria, Pertussis, Tetanus Vaccination: Yes Physical Exam - Vital signs Vitals: Temp Pulse Resp BP Pulse Ox 98.1 F 129 H 20 128/85 H 99 09/19/19 20:27 09/19/19 20:27 09/19/19 20:27 09/19/19 20:27 11/19/19 20:27 Course - Vital Signs Vital signs: Temp Pulse Resp BP Pulse Ox 98.1 F 129 H 20 128/85 H 99 09/19/19 20:27 09/19/19 20:27 09/19/19 20:27 09/19/19 20:27 09/19/19 20:27 Doctor's Discharge - Discharge Referrals: ZAY REED FNP [Primary Care Provider] - Follow up as needed
--- NOTE | 2019-09-19 21:26 | RADIOLOGY REPORT (SQ) ---
4 VIEWS OF LEFT KNEE EXAM DATE: 09/19/2019 8:41 PM [employer]NAL [employer]ER HISTORY: Knee pain; felt "pop". COMPARISON: None. FINDINGS: No acute fracture or dislocation is seen. The joint spaces are preserved. No radiopaque foreign body is identified. Mild soft tissue swelling is seen. No definite knee joint effusion is identified. Generalized osteopenia is present. IMPRESSION: No acute fracture or malalignment. If there is concern for internal derangement, consider MRI for further evaluation.
[2019-09-19] MEDS ORDERED: OXYCODONE-ACETAMINOPHEN 5-325 MG TABLET PO ONE (22:22)
--- NOTE | 2019-09-19 22:22 | ER Document Report ---
HPI - HPI Time Seen by Provider: 09/19/19 20:36 Pain Level: 5 Notes: Patient is a 44-year-old male who presents to the emergency department with a chief complaint of left knee pain. But an hour prior to arrival the patient was helping a friend throw a deer into a truck and the patient's left knee was up against a trailer hitch. Patient leaned up against the trailer hitch and felt a pop in his knee. Patient thought he was able to stand, but he is unable to bear weight on his knee. - REPRODUCTIVE Reproductive: DENIES: : - MUSCULOSKELETAL Musculoskeletal: REPORTS: Extremity pain Past Medical History - General Information source: Patient - Social History Smoking Status: Current Every Day Smoker Chew tobacco use (# tins/day): No Frequency of alcohol use: Occasional Drug Abuse: None Family History: Reviewed & Not Pertinent Patient has suicidal ideation: No Patient has homicidal ideation: No - Past Medical History Cardiac Medical History: Denies: Hx Coronary Artery Disease, Hx Heart Attack, Hx Hypertension Pulmonary Medical History: Denies: Hx Asthma, Hx Bronchitis, Hx COPD, Hx Pneumonia Neurological Medical History: Denies: Hx Cerebrovascular Accident, Hx Seizures Renal/ Medical History: Denies: Hx Peritoneal Dialysis GI Medical History: Reports: Hx Gastroesophageal Reflux Disease Musculoskeletal Medical History: Denies Hx Arthritis Psychiatric Medical History: Denies: Hx Depression Past Surgical History: Denies: Hx Pacemaker - Immunizations Immunizations up to date: Yes Hx Diphtheria, Pertussis, Tetanus Vaccination: Yes Hx Pneumococcal Vaccination: 11/01/00 Vertical Provider Document - CONSTITUTIONAL Notes: PHYSICAL EXAMINATION: GENERAL: Well-appearing, well-nourished and in no acute distress. HEAD: Atraumatic, normocephalic. EYES: Pupils equal round extraocular movements intact, conjunctiva are normal. ENT: Nares patent NECK: Normal range of motion LUNGS: No respiratory distress Musculoskeletal: Limited range of motion to left knee, swelling noted, tenderness to palpation over the anterior and lateral aspects of the knee. Strong popliteal pulse. Strong dorsalis pedis and posterior tibialis pulse, no erythema or ecchymosis noted. NEUROLOGICAL: Normal speech. PSYCH: Normal mood, normal affect. SKIN: Warm, Dry, normal turgor, no rashes or lesions noted. - INFECTION CONTROL TRAVEL OUTSIDE OF THE [place] IN LAST 30 DAYS: No Course - Re-evaluation Re-evalutation: Knee X-Ray 09/19/19 20:41 IMPRESSION: No acute fracture or malalignment. If there is concern for internal derangement, consider MRI for further evaluation. X-ray is negative as outlined above. Possible internal knee injury. Patient placed in a knee immobilizing splint and crutches. Pain medication prescribed. Patient encouraged to follow-up with Ortho if not improving over the next hiren ral days. Patient verbalizes understanding and agreement with this plan. The patient's emergency department workup and current diagnosis were explained to the patient and or family. Follow-up instructions were provided. Medications if prescribed were discussed. Instructions for when to return to the emergency department including specific worrisome symptoms were discussed with the patient and/or family. - Vital Signs Vital signs: Temp Pulse Resp BP Pulse Ox 98.1 F 129 H 20 128/85 H 99 09/19/19 20:27 09/19/19 20:27 09/19/19 20:27 09/19/19 20:27 09/19/19 20:27 Procedures - Immobilization Left knee Pre-Proc Neuro Vasc Exam: Normal Immobilizer type: Crutches, Knee immobilizer Performed by: PCT Post-Proc Neuro Vasc Exam: Normal Discharge - Discharge Clinical Impression: Left knee injury Qualifiers: Encounter type: initial encounter Qualified Code(s): S89.92XA - Unspecified injury of left lower leg, initial encounter Condition: Stable Disposition: HOME, SELF-CARE Instructions: Use of Crutches ([facility]), Ice & Elevation ([facility]), Suspected Internal Knee Injury ([facility]), Knee Immobilizing Splint ([facility]), Oral Narcotic Medication ([facility]) Additional Instructions: The x-ray of your knee today was unremarkable. I do suspect you may have an internal knee injury such as a ligament injury. Please use the knee immobilizer and crutches. Ice and elevate as outlined. Take ibuprofen 600 mg every 6 hours for pain and inflammation. Use the narcotic pain medication I have prescribed for severe pain only, we will not re-prescribe this again for this injury. Follow-up with orthopedics, their contact info as below. Prescriptions: Tramadol HCl [Ultram] 50 mg PO Q6H #12 tablet Referrals: TEX GARDNER MD [ACTIVE STAFF] - Follow up as needed MELISSA SIMMONS JR, DO [ACTIVE PROVISIONAL STAFF] - Follow up as needed
[2019-09-19 22:33] VITALS: BP 115/68
== END 2019-09-19 22:43 | disposition home or self-care (01) ==
LOC: ER 19:55
DX: S89.92XA Unspecified injury of left lower leg, initial encounter (principal); M25.562 Pain in left knee; M25.462 Effusion, left knee; X58.XXXA Exposure to other specified factors, initial encounter; F17.200 Nicotine dependence, unspecified, uncomplicated
CPT/HCPCS: 99283; 96374; 73564; L1830; J1885

== ENCOUNTER 2020-04-08 15:02 | Emergency (ER) | payer OTHER ==
[2020-04-08] MEDS ORDERED: NORMAL SALINE 1000 ML 1,000 ML IV ONE (15:59)
[2020-04-08] MEDS ORDERED: FENTANYL CITRATE INJ/PF 100 MCG/2 ML AMPUL IV ONE (15:59)
--- NOTE | 2020-04-08 16:01 | ER Document Report ---
ED GI/ - General Chief Complaint: Abdominal Pain Stated Complaint: WEAKNESS/LOWER ABDOMINAL PAIN Time Seen by Provider: 04/08/20 15:45 Primary Care Provider: KESHAWN ALVARES MD [ACTIVE STAFF] - Follow up as needed Mode of Arrival: Ambulatory Information source: Patient Notes: Patient presents complaining of bilateral groin pain, lower abdominal pain and dizziness for the past week. Patient states he has had diarrhea x2 episodes today. Patient denies any blood in the stool. Patient denies any fever nausea or vomiting. Patient has a history of Crohn's and is concerned about a flare up. Patient also complains of generalized fatigue. TRAVEL OUTSIDE OF THE [place] IN LAST 30 DAYS: No - HPI Patient complains to provider of: Abdominal pain, Diarrhea, Groin pain. No: Vomiting Onset: Last week Timing/Duration: Persistent Quality of pain: Achy Pain Level: 3 Location: Pelvis Associated symptoms: Diarrhea, Dizzy. denies: Fever, Lightheaded, Loss of appetite, Nausea, Urinary hesitancy, Urinary frequency, Urinary retention, Urinary urgency, Vomiting Exacerbated by: Denies Relieved by: Denies Similar symptoms previously: No Recently seen / treated by doctor: No - Related Data Allergies/Adverse Reactions: hydrocodone bitartrate [From Vicodin] Allergy (Intermediate, Verified 04/08/20 15:57) Itching Home Medications: delzicol, omeprazole Past Medical History - General Information source: Patient - Social History Smoking Status: Current Every Day Smoker Chew tobacco use (# tins/day): No Frequency of alcohol use: Occasional Drug Abuse: None Occupation: [employer] Lives with: Family Family History: Reviewed & Not Pertinent Patient has homicidal ideation: No - Past Medical History Cardiac Medical History: Denies: Hx Coronary Artery Disease, Hx Heart Attack, Hx Hypertension Pulmonary Medical History: Denies: Hx Asthma, Hx Bronchitis, Hx COPD, Hx Pneumonia Neurological Medical History: Denies: Hx Cerebrovascular Accident, Hx Seizures Renal/ Medical History: Denies: Hx Peritoneal Dialysis GI Medical History: Reports: Hx Crohn's Disease, Hx Gastroesophageal Reflux Disease Musculoskeletal Medical History: Denies Hx Arthritis Psychiatric Medical History: Denies: Hx Depression Surgical Hx: Negative Past Surgical History: Denies: Hx Pacemaker - Immunizations Immunizations up to date: Yes Hx Diphtheria, Pertussis, Tetanus Vaccination: Yes Hx Pneumococcal Vaccination: 11/01/00 Review of Systems - Review of Systems Constitutional: No symptoms reported. denies: Fever EENT: No symptoms reported Cardiovascular: Dizziness. denies: Chest pain Respiratory: No symptoms reported. denies: Cough Gastrointestinal: Abdominal pain, Diarrhea. denies: Nausea, Vomiting, Black stools, Rectal bleeding Genitourinary: No symptoms reported. denies: Dysuria Male Genitourinary: No symptoms reported. denies: Testicular pain, Penile disc harge Musculoskeletal: No symptoms reported Skin: No symptoms reported Hematologic/Lymphatic: No symptoms reported Neurological/Psychological: No symptoms reported Physical Exam - Vital signs Vitals: Pulse Pulse Ox 99 96 04/08/20 15:15 04/08/20 15:15 - General General appearance: Alert In distress: None - HEENT Head: Normocephalic, Atraumatic Eyes: Normal Conjunctiva: Normal Nasal: Normal Mouth/Lips: Normal Mucous membranes: Normal Neck: Normal, Supple. No: Lymphadenopathy - Respiratory Respiratory status: No respiratory distress Chest status: Nontender Breath sounds: Wheezing - RLL Chest palpation: Normal - Cardiovascular Rhythm: Tachycardia Heart sounds: S1 appreciated, S2 appreciated Murmur: No - Abdominal Inspection: Normal Distension: No distension Bowel sounds: Normal Tenderness: Tender - Lower abdomen Organomegaly: No organomegaly - Back Back: Normal, Nontender. No: CVA tenderness - Extremities General upper extremity: Normal inspection, Normal ROM General lower extremity: Normal inspection, Normal ROM - Neurological Neuro grossly intact: Yes Cognition: Normal [place] Coma Scale Eye Opening: Spontaneous [place] Coma Scale Verbal: Oriented [place] Coma Scale Motor: Obeys Commands [place] Coma Scale Total: 15 - Psychological Associated symptoms: Normal affect, Normal mood - Skin Skin Temperature: Warm Skin Moisture: Dry Skin Color: Normal Course - Re-evaluation Re-evalutation: 04/08/20 19:01 Patient with mild elevation of liver function tests. On reexam, patient continues to complain of bilateral inguinal tenderness, no scrotal tenderness and minimal lower pelvic tenderness. Patient denies any penile discharge or drainage. Mild prominence of lymph nodes noted bilaterally, will obtain urine for gonorrhea and Chlamydia testing. Patient inquiring as to why he feels so tired, will add on thyroid studies at this time. 04/08/20 21:10 Patient reports feeling some improvement of his symptoms at this time. Patient presents with abdominal pain without signs of peritonitis or other life- threatening or serious etiology. Patient appears stable for discharge and has been instructed to return immediately if the symptoms worsen in any way. - Vital Signs Vital signs: Temp Pulse Resp BP Pulse Ox 99.3 F 105 H 22 H 134/88 H 98 04/08/20 15:52 04/08/20 15:18 04/08/20 20:00 04/08/20 17:32 04/08/20 20:00 - Laboratory Result Diagrams: 04/08/20 16:26 04/08/20 16:26 Laboratory results interpreted by me: 04/08/20 04/08/20 16:26 16:26 Hgb 17.9 H Hct 52.2 H MCV 98 H MCH 33.6 H BUN 5 L AST 214 H ALT 194 H Total Protein 8.4 H Labs- All tests 24 hr 04/08/20 04/08/20 04/08/20 16:26 16:26 16:26 WBC 7.8 RBC 5.33 Hgb 17.9 H Hct 52.2 H MCV 98 H MCH 33.6 H MCHC 34.3 RDW 13.3 Plt Count 156 Lymph % (Auto) 20.1 [place] % (Auto) 10.0 Eos % (Auto) 2.5 Baso % (Auto) 0.8 Absolute Neuts (auto) 5.2 Absolute Lymphs (auto) 1.6 Absolute Monos (auto) 0.8 Absolute Eos (auto) 0.2 Absolute Basos (auto) 0.1 Seg Neutrophils % 66.6 Sodium 138.8 Potassium 4.3 Chloride 105 Carbon Dioxide 26 Anion Gap 8 BUN 5 L Creatinine 0.60 Est GFR ( Amer) > 60 Est GFR (MDRD) Non-Af > 60 Glucose 94 Calcium 9.6 Magnesium 2.3 Total Bilirubin 0.5 Direct Bilirubin 0.1 Neonat Total Bilirubin Not Reportable Neonat Direct Bilirubin Not Reportable Neonat Indirect Bili Not Reportable AST 214 H ALT 194 H Alkaline Phosphatase 96 Total Protein 8.4 H Albumin 4.8 Lipase 234.0 TSH Free T4 Free T3 pg/mL Urine Color STRAW Urine Appearance CLEAR Urine pH 6.0 Ur Specific [place] 1.002 Urine Protein NEGATIVE Urine Glucose (UA) NEGATIVE Urine Ketones NEGATIVE Urine Blood NEGATIVE Urine Nitrite NEGATIVE Urine Bilirubin NEGATIVE Urine Urobilinogen NEGATIVE Ur Leukocyte Esterase NEGATIVE Urine WBC (Auto) 0 Urine RBC (Auto) 0 Squamous Epi Cells Auto <1 Urine Mucus (Auto) RARE Urine Ascorbic Acid NEGATIVE Chlamydia DNA (PCR) N.gonorrhoeae DNA (PCR) 04/08/20 04/08/20 19:00 19:14 WBC RBC Hgb Hct MCV MCH MCHC RDW Plt Count Lymph % (Auto) [place] % (Auto) Eos % (Auto) Baso % (Auto) Absolute Neuts (auto) Absolute Lymphs (auto) Absolute Monos (auto) Absolute Eos (auto) Absolute Basos (auto) Seg Neutrophils % Sodium Potassium Chloride Carbon Dioxide Anion Gap BUN Creatinine Est GFR ( Amer) Est GFR (MDRD) Non-Af Glucose Calcium Magnesium Total Bilirubin Direct Bilirubin Neonat Total Bilirubin Neonat Direct Bilirubin Neonat Indirect Bili AST ALT Alkaline Phosphatase Total Protein Albumin Lipase TSH 1.93 Free T4 0.86 Free T3 pg/mL 3.58 Urine Color Urine Appearance Urine pH Ur Specific [place] Urine Protein Urine Glucose (UA) Urine Ketones Urine Blood Urine Nitrite Urine Bilirubin Urine Urobilinogen Ur Leukocyte Esterase Urine WBC (Auto) Urine RBC (Auto) Squamous Epi Cells Auto Urine Mucus (Auto) Urine Ascorbic Acid Chlamydia DNA (PCR) NOT DETECTED N.gonorrhoeae DNA (PCR) NOT DETECTED - Diagnostic Test Radiology reviewed: Reports reviewed - EKG Interpretation by Me EKG shows normal: Sinus rhythm Rate: Normal When compared to previous EKG there are: Previous EKG unavailable Additional EKG results interpreted by me: 04/08/20 21:45 No acute ischemic changes, QTC 441 Discharge - Discharge Clinical Impression: Abdominal pain Qualifiers: Abdominal location: unspecified location Qualified Code(s): R10.9 - Unspecified abdominal pain Groin pain Qualifiers: Laterality: unspecified laterality Qualified Code(s): R10.30 - Lower abdominal pain, unspecified Diarrhea Qualifiers: Diarrhea type: unspecified type Qualified Code(s): R19.7 - Diarrhea, unspecified Condition: Stable Disposition: HOME, SELF-CARE Instructions: Abdominal Pain ([facility]), Antispasmodics ([facility]), Diarrhea, Nonspecific ([facility]) Additional Instructions: Return immediately for any new or worsening symptoms Followup with your primary care provider, call tomorrow to make a followup appointment Prescriptions: Dicyclomine HCl [Bentyl 20 mg Tablet] 20 mg PO QID PRN #12 tablet PRN Reason: Referrals: KESHAWN ALVARES MD [ACTIVE STAFF] - Follow up as needed
[2020-04-08 16:40] LABS: ABSOLUTE BASOPHILS # (AUTO) 0.1 10^3/uL (0.0-0.2); ABSOLUTE EOSINOPHILS # (AUTO) 0.2 10^3/uL (0.0-0.6); ABSOLUTE LYMPHOCYTES (AUTO) 1.6 10^3/uL (0.5-4.7); ABSOLUTE MONOCYTES (AUTO) 0.8 10^3/uL (0.1-1.4); ABSOLUTE NEUT (AUTO) 5.2 10^3/uL (1.7-8.2); BASOPHILS % (AUTO) 0.8 % (0-2); EOSINOPHILS % (AUTO) 2.5 % (0-6); HEMATOCRIT 52.2 % (37.9-51.0); HEMOGLOBIN 17.9 g/dL (13.5-17.0); LYMPHOCYTES % (AUTO) 20.1 % (13-45); MEAN CORPUSCULAR HEMOGLOBIN 33.6 pg (27.0-33.4); MEAN CORPUSCULAR HGB CONC 34.3 g/dL (32.0-36.0); MEAN CORPUSCULAR VOLUME 98 fl (80-97); PLATELET COUNT 156 10^3/uL (150-450); RED BLOOD COUNT 5.33 10^6/uL (4.35-5.55); RED CELL DISTRIBUTION WIDTH 13.3 % (11.5-14.0); SEGMENTED NEUTROPHILS % (AUTO) 66.6 % (42-78); TOTAL CELLS COUNTED % (AUTO) 100 %; WHITE BLOOD COUNT 7.8 10^3/uL (4.0-10.5)
[2020-04-08 16:41] LABS: APPEARANCE,URINE CLEAR; BILIRUBIN,URINE NEGATIVE (NEGATIVE); COLOR,URINE STRAW; GLUCOSE, URINE NEGATIVE (NEGATIVE); KETONES,URINE NEGATIVE (NEGATIVE); LEUKOCYTE ESTERASE,URINE NEGATIVE (NEGATIVE); NITRITE,URINE NEGATIVE (NEGATIVE); PROTEIN,URINE NEGATIVE (NEGATIVE); URINE SPECIFIC GRAVITY 1.002; UROBILINOGEN,URINE NEGATIVE mg/dL (<2.0)
--- NOTE | 2020-04-08 17:05 | RADIOLOGY REPORT (SQ) ---
EXAM DESCRIPTION: KUB/ABDOMEN (SINGLE VIEW) IMAGES COMPLETED DATE/TIME: 04/08/2020 4:42 pm REASON FOR STUDY: lower abd pain, hx Crohn's disease COMPARISON: AP views of the abdomen from 08/03/2018. NUMBER OF VIEWS: One view. TECHNIQUE: Supine radiographic image of the abdomen acquired. LIMITATIONS: None. FINDINGS: BOWEL GAS PATTERN: No dilated loops of bowel or differential air-fluid levels. CALCIFICATIONS: None. SOFT TISSUES: No abnormality. HARDWARE: None in the abdomen. BONES: No acute fracture. OTHER: No other finding. IMPRESSION: Nonobstructive bowel gas pattern. TECHNICAL DOCUMENTATION: JOB ID: [id number] 2010 [employer]- All Rights Reserved Reading location - IP/workstation name: [email or web address]
[2020-04-08 17:10] LABS: ALBUMIN 4.8 g/dL (3.5-5.0); ALKALINE PHOSPHATASE 96 U/L (38-126); ANION GAP 8 (5-19); ASPARTATE AMINO TRANSFERASE 214 U/L (17-59); BILIRUBIN,DIRECT 0.1 mg/dL (0.0-0.4); BILIRUBIN,TOTAL 0.5 mg/dL (0.2-1.3); BLOOD UREA NITROGEN 5 mg/dL (7-20); CALCIUM 9.6 mg/dL (8.4-10.2); CARBON DIOXIDE 26 mmol/L (22-30); CHLORIDE 105 mmol/L (98-107); GLUCOSE 94 mg/dL (75-110); POTASSIUM 4.3 mmol/L (3.6-5.0); TOTAL PROTEIN 8.4 g/dL (6.3-8.2)
--- NOTE | 2020-04-08 18:29 | RADIOLOGY REPORT (SQ) ---
EXAM DESCRIPTION: CT ABD/PELVIS WITH IV ONLY IMAGES COMPLETED DATE/TIME: 04/08/2020 6:12 pm REASON FOR STUDY: abd pain, hx crohns COMPARISON: 06/19/2016 TECHNIQUE: CT scan of the abdomen and pelvis performed using helical scanning technique with dynamic intravenous contrast injection. No oral contrast. Images reviewed with lung, soft tissue, and bone windows. Reconstructed coronal and sagittal MPR images reviewed. Delayed images for evaluation of the urinary system also acquired. All images stored on PACS. All CT scanners at this facility use dose modulation, iterative reconstruction, and/or weight based d osing when appropriate to reduce radiation dose to as low as reasonably achievable (ALARA). [facility]: Dose Right [facility]: CareDose [facility]: Dose Right [facility]: Teradose 4D [facility]: The [email or web address] CONTRAST TYPE AND DOSE: 64 cc Omnipaque 350- low osmolar. RENAL FUNCTION: BUN 5 creatinine 0.6 RADIATION DOSE: CT Rad equipment meets quality standard of care and radiation dose reduction techniq ues were employed. CTDIvol: 4.8 - 5.2 mGy. DLP: 510 mGy-cm.. LIMITATIONS: None. FINDINGS: LOWER CHEST: No significant findings. No nodules or infiltrates. LIVER: The liver appears slightly hypoattenuating. No mass. SPLEEN: Normal size. No focal lesions. PANCREAS: No masses. No significant calcifications. No adjacent inflammation or peripancreatic fluid collections. Pancreatic duct not dilated. GALLBLADDER: No identified stones by CT criteria. No inflammatory changes to suggest cholecystitis. ADRENAL GLANDS: No significant masses or asymmetry. RIGHT KIDNEY AND URETER: No solid masses. No significant calcifications. No hydronephrosis or hyd roureter. LEFT KIDNEY AND URETER: No solid masses. No significant calcifications. No hydronephrosis or hydr oureter. AORTA AND VESSELS: No aneurysm. No dissection. Renal arteries, SMA, celiac without stenosis. RETROPERITONEUM: No retroperitoneal adenopathy, hemorrhage or masses. BOWEL AND PERITONEAL CAVITY: No masses or inflammatory changes. No free fluid or peritoneal masses. APPENDIX: Not identified. PELVIS: No mass. No free fluid. Normal bladder. ABDOMINAL WALL: No masses. No hernias. BONES: No significant or acute findings. OTHER: No other significant finding. IMPRESSION: There may be mild hepatic steatosis. There is no other significant or acute finding in the abdomen or pelvis. TECHNICAL DOCUMENTATION: JOB ID: [id number] Quality ID # [id number]: Final reports with documentation of one or more dose reduction techniques (e.g., Au tomated exposure control, adjustment of the mA and/or kV according to patient size, use of iterative reconstruction technique) 2010 [employer]- All Rights Reserved Reading location - IP/workstation name: [email or web address]
[2020-04-08] MEDS ORDERED: AZITHROMYCIN 250 MG TABLET PO ONE (19:00)
[2020-04-08] MEDS ORDERED: CEFTRIAXONE INJ 250 MG VIAL IV ONE (19:00)
[2020-04-08 20:08] LABS: FREE T3 3.58 pg/mL (2.77-5.27)
[2020-04-08 20:21] LABS: THYROID STIMULATING HORMONE 1.93 uIU/mL (0.47-4.68)
[2020-04-08 20:48] LABS: CHLAM PCR NOT DETECTED (NOT DETECT)
[2020-04-08 21:11] LABS: FREE T4 (FREE THYROXINE) 0.86 ng/dL (0.78-2.19)
[2020-04-08 22:03] VITALS: BP 136/86
--- NOTE | 2020-04-09 09:31 | EKG REPORT ---
SEVERITY:- ABNORMAL ECG - SINUS RHYTHM PROBABLE LEFT VENTRICULAR HYPERTROPHY ST ELEV, PROBABLE NORMAL EARLY REPOL PATTERN : Confirmed by: Medina Wood MD 09-Apr-2020 09:30:57
== END 2020-04-08 22:00 | disposition home or self-care (01) ==
LOC: ER 15:02
DX: R10.9 Unspecified abdominal pain (principal); R10.30 Lower abdominal pain, unspecified; R19.7 Diarrhea, unspecified; R53.1 Weakness; R10.31 Right lower quadrant pain; R10.32 Left lower quadrant pain; R42 Dizziness and giddiness; R53.83 Other fatigue; Z88.8 Allergy status to other drugs, medicaments and biological substances; F17.200 Nicotine dependence, unspecified, uncomplicated
CPT/HCPCS: 93005; 99285; 96361; 96375; 96365; 36415; 84439; 83690; 83735; 84443; 85025; 80053; 81001; 84481; 87491; 87591; 74018; 74177; 93010; J3010; J7030; J0696

== ENCOUNTER 2020-05-24 09:30 | Inpatient (IN) | payer OTHER ==
[2020-05-24] MEDS ORDERED: NORMAL SALINE 1000 ML 1,000 ML IV ONE (10:12)
--- NOTE | 2020-05-24 10:12 | ER Document Report ---
ED Medical Screen (RME) - General Chief Complaint: Abdominal Pain Stated Complaint: ABDOMINAL PAIN Time Seen by Provider: 05/24/20 10:11 Mode of Arrival: Ambulatory Information source: Patient Notes: 44-year-old male presents to ED for complaint of left lower abdominal pain. He denies any nausea vomiting or diarrhea. He states he does have a history of pancreatitis and Crohn's disease. He is alert oriented answering questions appropriately he is doubled over in pain. He states all the pain is the left lower quadrant. I have greeted and performed a rapid initial assessment of this patient. A comprehensive ED assessment and evaluation of the patient, analysis of test results and completion of medical decision making process will be conducted by an additional ED providers. TRAVEL OUTSIDE OF THE [place] IN LAST 30 DAYS: No - Related Data Allergies/Adverse Reactions: hydrocodone bitartrate [From Vicodin] Allergy (Intermediate, Verified 05/24/20 09:41) Itching Past Medical History - Social History Chew tobacco use (# tins/day): No Family history: Reviewed & Not Pertinent - Past Medical History Cardiac Medical History: Denies: Hx Coronary Artery Disease, Hx Heart Attack, Hx Hypertension Pulmonary Medical History: Denies: Hx Asthma, Hx Bronchitis, Hx COPD, Hx Pneumonia Neurological Medical History: Denies: Hx Cerebrovascular Accident, Hx Seizures Renal/ Medical History: Denies: Hx Peritoneal Dialysis GI Medical History: Reports: Hx Crohn's Disease, Hx Gastroesophageal Reflux Disease Musculoskeltal Medical History: Denies Hx Arthritis Psychiatric Medical History: Denies: Hx Depression Past Surgical History: Denies: Hx Pacemaker - Immunizations Immunizations up to date: Yes Hx Diphtheria, Pertussis, Tetanus Vaccination: Yes Physical Exam - Vital signs Vitals: Temp Pulse Resp BP Pulse Ox 98.1 F 101 H 18 146/91 H 100 05/24/20 09:33 05/24/20 09:33 05/24/20 09:33 05/24/20 09:33 05/24/20 09:33 Course - Vital Signs Vital signs: Temp Pulse Resp BP Pulse Ox 98.1 F 101 H 18 146/91 H 100 05/24/20 09:33 05/24/20 09:33 05/24/20 09:33 05/24/20 09:33 05/24/20 09:33 - Laboratory Result Diagrams: 05/24/20 09:51 05/24/20 09:51
[2020-05-24] MEDS ORDERED: FENTANYL CITRATE INJ/PF 100 MCG/2 ML AMPUL IV ONE (10:15)
[2020-05-24 10:25] LABS: ABSOLUTE EOSINOPHILS # (AUTO) 0.1 10^3/uL (0.0-0.6); ABSOLUTE LYMPHOCYTES (AUTO) 0.8 10^3/uL (0.5-4.7); ABSOLUTE MONOCYTES (AUTO) 0.3 10^3/uL (0.1-1.4); ABSOLUTE NEUT (AUTO) 2.3 10^3/uL (1.7-8.2); BASOPHILS % (AUTO) 0.5 % (0-2); EOSINOPHILS % (AUTO) 2.7 % (0-6); HEMATOCRIT 44.8 % (37.9-51.0); HEMOGLOBIN 15.4 g/dL (13.5-17.0); LYMPHOCYTES % (AUTO) 21.9 % (13-45); MEAN CORPUSCULAR HEMOGLOBIN 33.5 pg (27.0-33.4); MEAN CORPUSCULAR HGB CONC 34.3 g/dL (32.0-36.0); MEAN CORPUSCULAR VOLUME 98 fl (80-97); MONOCYTES % (AUTO) 9.2 % (3-13); RED BLOOD COUNT 4.59 10^6/uL (4.35-5.55); RED CELL DISTRIBUTION WIDTH 14.4 % (11.5-14.0); SEGMENTED NEUTROPHILS % (AUTO) 65.7 % (42-78); TOTAL CELLS COUNTED % (AUTO) 100 %; WHITE BLOOD COUNT 3.5 10^3/uL (4.0-10.5)
[2020-05-24] MEDS ORDERED: ONDANSETRON HCL INJ/PF 4 MG/2 ML SDV IV ONE (10:35)
[2020-05-24 10:36] LABS: ALBUMIN 4.5 g/dL (3.5-5.0); ALKALINE PHOSPHATASE 93 U/L (38-126); ANION GAP 8 (5-19); ASPARTATE AMINO TRANSFERASE 207 U/L (17-59); BILIRUBIN,DIRECT 0.1 mg/dL (0.0-0.4); BILIRUBIN,TOTAL 0.6 mg/dL (0.2-1.3); BLOOD UREA NITROGEN 4 mg/dL (7-20); CALCIUM 8.9 mg/dL (8.4-10.2); CARBON DIOXIDE 26 mmol/L (22-30); CHLORIDE 102 mmol/L (98-107); GLUCOSE 177 mg/dL (75-110); POTASSIUM 3.7 mmol/L (3.6-5.0); TOTAL PROTEIN 7.5 g/dL (6.3-8.2)
--- NOTE | 2020-05-24 10:37 | ER Document Report ---
ED General - General Chief Complaint: Abdominal Pain Stated Complaint: ABDOMINAL PAIN Time Seen by Provider: 05/24/20 10:11 Primary Care Provider: ZAY REED FNP [Primary Care Provider] - Follow up as needed Mode of Arrival: Ambulatory Notes: Patient is a 44-year-old white male with a history of Crohn's disease on daily treatment as well as a history of pancreatitis related to gallbladder sludge in the past who presents the emergency department the chief complaint of abdominal pain that began at 1 AM this morning. He states it woke him from his sleep. States it seems to be localized to the left lower quadrant, stabbing and throbbing. Does not radiate. Has been constant since onset. He reports this feels different from prior episodes of pancreatitis and colitis in the past. He sees a doctor regularly for control of these conditions. Denies any associated diarrhea. Admits to some mild nausea secondary to the pain but denies vomiting. No chest pain or shortness of breath. No fever chills or night sweats. TRAVEL OUTSIDE OF THE [place] IN LAST 30 DAYS: No - Related Data Allergies/Adverse Reactions: hydrocodone bitartrate [From Vicodin] Allergy (Intermediate, Verified 05/24/20 09:41) Itching Past Medical History - General Information source: Patient - Social History Smoking Status: Current Every Day Smoker Chew tobacco use (# tins/day): No Family History: Reviewed & Not Pertinent Patient has homicidal ideation: No - Past Medical History Cardiac Medical History: Denies: Hx Coronary Artery Disease, Hx Heart Attack, Hx Hypertension Pulmonary Medical History: Denies: Hx Asthma, Hx Bronchitis, Hx COPD, Hx Pneumonia Neurological Medical History: Denies: Hx Cerebrovascular Accident, Hx Seizures Renal/ Medical History: Denies: Hx Peritoneal Dialysis GI Medical History: Reports: Hx Crohn's Disease, Hx Gastroesophageal Reflux Disease Musculoskeletal Medical History: Denies Hx Arthritis Psychiatric Medical History: Denies: Hx Depression Past Surgical History: Denies: Hx Pacemaker - Immunizations Immunizations up to date: Yes Hx Diphtheria, Pertussis, Tetanus Vaccination: Yes Hx Pneumococcal Vaccination: 11/01/00 Review of Systems - Review of Systems Constitutional: denies: Fever EENT: denies: Throat pain Cardiovascular: denies: Chest pain Respiratory: denies: Short of breath Gastrointestinal: Abdominal pain, Nausea. denies: Diarrhea, Vomiting Genitourinary: denies: Pain Male Genitourinary: Other - No testicular swelling or scrotal swelling. denies: Testicular pain, Penile discharge Musculoskeletal: denies: Muscle pain Skin: denies: Change in color Hematologic/Lymphatic: denies: Easy bleeding Neurological/Psychological: denies: Headaches Physical Exam - Vital signs Vitals: Temp Pulse Resp BP Pulse Ox 98.1 F 101 H 18 146/91 H 100 05/24/20 09:33 05/24/20 09:33 05/24/20 09:33 05/24/20 09:33 05/24/20 09:33 - General General appearance: Alert, Other - Patient uncomfortable In distress: Mild - HEENT Head: Normocephalic, Atraumatic Eyes: Normal Conjunctiva: Normal Extraocular movements intact: Yes Pupils: PERRL Mucous membranes: Moist Neck: Supple - Respiratory Respiratory status: No respiratory distress Chest status: Nontender Breath sounds: Normal Chest palpation: Normal - Cardiovascular Rhythm: Regular Heart sounds: Normal auscultation - Abdominal Inspection: Normal Distension: No distension Bowel sounds: Hypoactive Tenderness: Tender - Right upper, left upper and left lower quadrant Organomegaly: Other - Exam limited, guarding - Back Back: No: CVA tenderness - Neurological Neuro grossly intact: Yes Cognition: Normal Orientation: AAOx4 - Psychological Associated symptoms: Agitated, Anxious - Skin Skin Temperature: Warm Skin Moisture: Dry Skin Color: Normal Course - Re-evaluation Re-evalutation: 05/24/20 13:46 Patient's pain is poorly controlled. CT scan showing evidence of pancreatitis as well as the elevated lipase likely secondary to the patient's chronic alcoholism. He has been given fentanyl, morphine and Dilaudid and having difficulty controlling his pain, he is having some tremors which may be secondary to alcohol withdrawal. He does have a positive alcohol level however in addition to benzos and opioids. Patient admits to some nausea and does not appear to be tolerating oral intake. Called and spoke with Dr. Montes, hospitalist regarding the patient's condition, suspect the patient will require hospitalization/admission for further care and management. Dr. Montes will evaluate the patient in the emergency department. 05/24/20 14:57 Dr. Montes will admit the patient. - Vital Signs Vital signs: Temp Pulse Resp BP Pulse Ox 97.6 F 101 H 17 171/91 H 100 05/24/20 13:07 05/24/20 09:33 05/24/20 13:07 05/24/20 13:07 05/24/20 13:07 - Laboratory Result Diagrams: 05/24/20 09:51 05/24/20 09:51 Laboratory results interpreted by me: 05/24/20 05/24/20 05/24/20 09:51 09:51 09:51 WBC 3.5 L MCV 98 H MCH 33.5 H RDW 14.4 H Plt Count 98 L Sodium 135.7 L BUN 4 L Glucose 177 H AST 207 H ALT 145 H Lipase 1062.5 H Urine Protein 30 H Urine Glucose (UA) 50 H Ur Leukocyte Esterase TRACE H Discharge - Discharge Clinical Impression: Pancreatitis Qualifiers: Chronicity: acute Pancreatitis type: alcohol induced Acute pancreatitis complication: unspecified Qualified Code(s): K85.20 - Alcohol induced acute pancreatitis without necrosis or infection Condition: Stable Disposition: ADMITTED INPATIENT Admitting Provider: Simon (Hospitalist) Unit Admitted: Medical Floor Referrals: ZAY REED FNP [Primary Care Provider] - Follow up as needed
[2020-05-24 10:38] LABS: APPEARANCE,URINE CLEAR; BILIRUBIN,URINE NEGATIVE (NEGATIVE); COLOR,URINE YELLOW; GLUCOSE, URINE 50 mg/dL (NEGATIVE); KETONES,URINE NEGATIVE (NEGATIVE); LEUKOCYTE ESTERASE,URINE TRACE (NEGATIVE); NITRITE,URINE NEGATIVE (NEGATIVE); PROTEIN,URINE 30 mg/dL (NEGATIVE); URINE SPECIFIC GRAVITY 1.017; UROBILINOGEN,URINE NEGATIVE mg/dL (<2.0)
[2020-05-24 10:48] LABS: PLATELET COUNT 98 10^3/uL (150-450)
[2020-05-24] MEDS ORDERED: MORPHINE SULFATE 10 MG/ML INJ IV ONE (11:12)
--- NOTE | 2020-05-24 12:39 | RADIOLOGY REPORT (SQ) ---
EXAM DESCRIPTION: CT ABD/PELVIS WITH IV ONLY IMAGES COMPLETED DATE/TIME: 05/24/2020 12:13 pm REASON FOR STUDY: fall, rib fx, RUQ and side pain COMPARISON: 04/08/2020 TECHNIQUE: CT scan of the abdomen and pelvis performed using helical scanning technique with dynamic intravenous contrast injection. No oral contrast. Images reviewed with lung, soft tissue, and bone windows. Reconstructed coronal and sagittal MPR images reviewed. Delayed images for evaluation of the urinary system also acquired. All images stored on PACS. All CT scanners at this facility use dose modulation, iterative reconstruction, and/or weight based d osing when appropriate to reduce radiation dose to as low as reasonably achievable (ALARA). [facility]: Dose Right [facility]: CareDose [facility]: Dose Right [facility]: Teradose 4D [facility]: [employer] CONTRAST TYPE AND DOSE: contrast/concentration: Isovue 350.00 mmol/ml; Total Contrast Delivered: 62. 0 ml; Total Saline Delivered: 65.0 ml RENAL FUNCTION: BUN 4 creatinine 0.7 RADIATION DOSE: CT Rad equipment meets quality standard of care and radiation dose reduction techniq ues were employed. CTDIvol: 4.8 - 5.2 mGy. DLP: 524 mGy-cm.. LIMITATIONS: None. FINDINGS: LOWER CHEST: Hypoattenuation of the liver. No masses. LIVER: Normal size. No masses. No dilated ducts. SPLEEN: Normal size. No focal lesions. PANCREAS: There is a small amount of fluid around the pancreas. This can be seen along the anterior renal fascia on the left. GALLBLADDER: No identified stones by CT criteria. No inflammatory changes to suggest cholecystitis. ADRENAL GLANDS: No significant masses or asymmetry. RIGHT KIDNEY AND URETER: No solid masses. No significant calcifications. No hydronephrosis or hyd roureter. LEFT KIDNEY AND URETER: No solid masses. No significant calcifications. No hydronephrosis or hydr oureter. AORTA AND VESSELS: No aneurysm. No dissection. Renal arteries, SMA, celiac without stenosis. RETROPERITONEUM: No retroperitoneal adenopathy, hemorrhage or masses. BOWEL AND PERITONEAL CAVITY: No masses or inflammatory changes. No free fluid or peritoneal masses. APPENDIX: Not identified. PELVIS: No mass. No free fluid. Normal bladder. ABDOMINAL WALL: No masses. No hernias. BONES: No significant or acute findings. OTHER: No other significant finding. IMPRESSION: 1. There is some fluid around the pancreas. Correlate for pancreatitis. 2. Hepatic steatosis. TECHNICAL DOCUMENTATION: JOB ID: [id number] Quality ID # [id number]: Final reports with documentation of one or more dose reduction techniques (e.g., Au tomated exposure control, adjustment of the mA and/or kV according to patient size, use of iterative reconstruction technique) 2010 [employer]- All Rights Reserved Reading location - IP/workstation name: [email or web address]
[2020-05-24] MEDS ORDERED: HYDROMORPHONE HCL INJ/PF 2 MG/ML AMPULE IV ONE (12:55)
[2020-05-24 13:32] LABS: URINE AMPHETAMINES SCREEN NEGATIVE; URINE BARBITURATES SCREEN NEGATIVE; URINE COCAINE SCREEN NEGATIVE; URINE MARIJUANA (THC) SCREEN NEGATIVE; URINE METHADONE SCREEN NEGATIVE; URINE PHENCYCLIDINE SCREEN NEGATIVE
[2020-05-24 13:34] LABS: URINE BENZODIAZEPINES SCREEN UNCONFIRMED POSITIVE
[2020-05-24] MEDS ORDERED: DIAZEPAM INJ 10 MG/2 ML DISP.SYRIN IV PRN (14:45)
[2020-05-24] MEDS ORDERED: ONDANSETRON HCL INJ/PF 4 MG/2 ML SDV IV PRN (14:46)
--- NOTE | 2020-05-24 15:00 | PDOC H&P ---
History of Present Illness Admission Date/PCP: LATOSHA GARZA History of Present Illness: KALANI CRENSHAW is a 44 year old male who says he has a history of Crohn's disease who presents with abdominal pain that started this morning. He is not very good at describing its location or its qualities. He does say he has had pancreatitis in the past. Upon further questioning, he admits that it was as a result of alcohol. He says that he drinks 6-8 beers a day. When I asked him how long he had gone without a drink in the past month, he said just when he is asleep, and his last drink was this morning before he came in here. He has not had any nausea or vomiting. His lipase was elevated and he had some evidence of pancreatitis on CT scan. No gallstones or pericholecystic fluid. Past Medical History Cardiac Medical History: Denies: Coronary Artery Disease, Myocardial Infarction, Hypertension Pulmonary Medical History: Denies: Asthma, Bronchitis, Chronic Obstructive Pulmonary Disease (COPD), Pneumonia Neurological Medical History: Denies: Seizures GI Medical History: Reports: Crohn's Disease, Gastroesophageal Reflux Disease Musculoskeltal Medical History: Denies: Arthritis Psychiatric Medical History: Denies: Depression Hematology: Denies: Anemia Past Surgical History Past Surgical History: Denies: Pacemaker Social History Smoking Status: Current Every Day Smoker Electronic Cigarette use?: No Frequency of Alcohol Use: Occasional Hx Recreational Drug Use: No Drugs: None Hx Prescription Drug Abuse: No Family History Family History: Reviewed & Not Pertinent Parental Family History Reviewed: No - Unknown Children Family History Reviewed: NA Sibling(s) Family History Reviewed.: Unknown Medication/Allergy Home Medications: Omeprazole 1 tab PO DAILY 09/26/18 Dicyclomine HCl [Bentyl 20 mg Tablet] 20 mg PO QID PRN #12 tablet 04/08/20 Allergies/Adverse Reactions: hydrocodone bitartrate [From Vicodin] Allergy (Intermediate, Verified 05/24/20 09:41) Itching Review of Systems All systems: reviewed and no additional remarkable complaints except as stated - All systems were reviewed and were negative except as noted in the HPI Physical Exam Vital Signs: Temp Pulse Resp BP Pulse Ox 97.6 F 101 H 17 171/91 H 100 05/24/20 13:07 05/24/20 09:33 05/24/20 13:07 05/24/20 13:07 05/24/20 13:07 Intake & Output 05/23/20 05/24/20 05/25/20 06:59 06:59 06:59 Intake Total 1000 Balance 1000 Weight 54.2 kg General appearance: PRESENT: no acute distress, cooperative, disheveled, thin Head exam: PRESENT: atraumatic, normocephalic Eye exam: PRESENT: EOMI, PERRLA. ABSENT: conjunctival injection, nystagmus, scleral icterus Ear exam: PRESENT: normal external ear exam Mouth exam: PRESENT: dry mucosa, neck supple Teeth exam: PRESENT: poor dentation Throat exam: ABSENT: post pharyngeal erythema Neck exam: PRESENT: full ROM. ABSENT: carotid bruit, JVD, lymphadenopathy, meningismus, tenderness, thyromegaly Respiratory exam: PRESENT: clear to auscultation kal, symmetrical, unlabored. ABSENT: accessory muscle use, chest wall tenderness, crackles, prolonged expiratory phas, rhonchi, tachypnea, wheezes Cardiovascular exam: PRESENT: RRR, +S1, +S2 Pulses: PRESENT: normal carotid pulses Vascular exam: PRESENT: normal capillary refill GI/Abdominal exam: PRESENT: normal bowel sounds, soft. ABSENT: distended, guarding, rebound, tenderness Extremities exam: ABSENT: clubbing, pedal edema Musculoskeletal exam: ABSENT: deformity, normal inspection Neurological exam: PRESENT: alert, awake, oriented to person, oriented to place, oriented to situation, CN II-XII grossly intact. ABSENT: motor sensory deficit Psychiatric exam: PRESENT: flat affect Skin exam: PRESENT: dry, warm Results Laboratory Results: 05/24/20 09:51 05/24/20 09:51 05/24/20 05/24/20 05/24/20 09:51 09:51 09:51 WBC 3.5 L RBC 4.59 Hgb 15.4 Hct 44.8 MCV 98 H MCH 33.5 H MCHC 34.3 RDW 14.4 H Plt Count 98 L Seg Neutrophils % 65.7 Sodium 135.7 L Potassium 3.7 Chloride 102 Carbon Dioxide 26 Anion Gap 8 BUN 4 L Creatinine 0.70 Est GFR ( Amer) > 60 Glucose 177 H Calcium 8.9 Total Bilirubin 0.6 AST 207 H Alkaline Phosphatase 93 C-Reactive Protein Total Protein 7.5 Albumin 4.5 Lipase 1062.5 H Urine Color YELLOW Urine Appearance CLEAR Urine pH 5.0 Ur Specific Smoot 1.017 Urine Protein 30 H Urine Glucose (UA) 50 H Urine Ketones NEGATIVE Urine Blood NEGATIVE Urine Nitrite NEGATIVE Ur Leukocyte Esterase TRACE H Urine WBC (Auto) 4 Urine RBC (Auto) 1 05/24/20 09:51 WBC RBC Hgb Hct MCV MCH MCHC RDW Plt Count Seg Neutrophils % Sodium Potassium Chloride Carbon Dioxide Anion Gap BUN Creatinine Est GFR ( Amer) Glucose Calcium Total Bilirubin AST Alkaline Phosphatase C-Reactive Protein < 5.0 Total Protein Albumin Lipase Urine Color Urine Appearance Urine pH Ur Specific Smoot Urine Protein Urine Glucose (UA) Urine Ketones Urine Blood Urine Nitrite Ur Leukocyte Esterase Urine WBC (Auto) Urine RBC (Auto) Impressions: Abdomen/Pelvis CT 05/24/20 11:08 IMPRESSION: 1. There is some fluid around the pancreas. Correlate for pancreatitis. 2. Hepatic steatosis. Assessment and Plan - Diagnosis (1) Pancreatitis Qualifiers: Chronicity: acute Pancreatitis type: alcohol induced Acute pancreatitis complication: unspecified Qualified Code(s): K85.20 - Alcohol induced acute pancreatitis without necrosis or infection Is this a current diagnosis for this admission?: Yes Plan: N.p.o. Copious IV fluids. Vitamin supplementation. Pain control. Antiemetics. Blood pressure control. (2) Alcoholism Is this a current diagnosis for this admission?: Yes Plan: Vitamin supplementation. IV fluids. PRN Valium. Monitoring for withdrawal. - Time Time Spent with patient: 35 or more minutes Anticipated Discharge Disposition: Home, Self Care Anticipated Discharge: within 72 hours - Inpatient Certification Based on my medical assessment, after consideration of the patient's comorbidities, presenting symptoms, or acuity I expect that the services needed warrant INPATIENT care.: Yes I certify that my determination is in accordance with my understanding of Medicare's requirements for reasonable and necessary INPATIENT services [42 CFR 412.3e].: Yes Medical Necessity: Need Close Monitoring Due to Risk of Patient Decompensation, Need For IV Fluids, Need for Pain Control, Risk of Complication if Not Cared For in Hospital
[2020-05-24] MEDS: RINGERS SOLUTION,LACTATED 1,000 ML IV PRN (15:35)
[2020-05-24] MEDS: MORPHINE SULFATE 10 MG/ML INJ IV PRN ×2 (17:19→21:27)
[2020-05-24] MEDS: NORMAL SALINE 1000 ML 1,000 ML with POTASSIUM CHLORIDE 20 MEQ, MAGNESIUM SULFATE 8 MEQ,... IV SCH ×5 (18:59)
[2020-05-24] MEDS: HEPARIN SOD (PORCINE) 5,000 UNIT/ML 1 ML VIAL SUBCUT SCH (21:27)
[2020-05-24] MEDS: HYDRALAZINE HCL INJ/PF 20 MG/1 ML SDV IV PRN (23:25)
[2020-05-25] MEDS: MORPHINE SULFATE 10 MG/ML INJ IV PRN ×5 (01:27→19:49)
[2020-05-25] MEDS: RINGERS SOLUTION,LACTATED 1,000 ML IV PRN ×4 (02:48→22:45)
[2020-05-25] MEDS: HEPARIN SOD (PORCINE) 5,000 UNIT/ML 1 ML VIAL SUBCUT SCH ×3 (05:42→21:14)
[2020-05-25 06:19] LABS: HEMATOCRIT 43.9 % (37.9-51.0); HEMOGLOBIN 15.3 g/dL (13.5-17.0); MEAN CORPUSCULAR HEMOGLOBIN 33.6 pg (27.0-33.4); MEAN CORPUSCULAR HGB CONC 34.8 g/dL (32.0-36.0); MEAN CORPUSCULAR VOLUME 97 fl (80-97); RED BLOOD COUNT 4.55 10^6/uL (4.35-5.55); RED CELL DISTRIBUTION WIDTH 14.2 % (11.5-14.0); WHITE BLOOD COUNT 4.5 10^3/uL (4.0-10.5)
[2020-05-25 06:38] LABS: BLOOD UREA NITROGEN 5 mg/dL (7-20); CALCIUM 9.2 mg/dL (8.4-10.2); GLUCOSE 86 mg/dL (75-110); POTASSIUM 3.8 mmol/L (3.6-5.0)
[2020-05-25 06:44] LABS: CARBON DIOXIDE 28 mmol/L (22-30); CHLORIDE 101 mmol/L (98-107)
[2020-05-25 06:46] LABS: PLATELET COUNT 65 10^3/uL (150-450)
[2020-05-25 06:47] LABS: ANION GAP 5 (5-19)
[2020-05-25] MEDS: PANTOPRAZOLE SODIUM 40 MG VIAL IV SCH (13:14)
[2020-05-25] MEDS: HYDRALAZINE HCL INJ/PF 20 MG/1 ML SDV IV PRN (15:10)
--- NOTE | 2020-05-25 17:18 | PDOC PROGRESS REPORT ---
Subjective Progress Note for:: 05/25/20 Subjective:: KALANI CRENSHAW is a 44 year old male who says he has a history of Crohn's disease who presents with abdominal pain that started this morning. He is not very good at describing its location or its qualities. He does say he has had pancreatitis in the past. Upon further questioning, he admits that it was as a result of alcohol. He says that he drinks 6-8 beers a day. When I asked him how long he had gone without a drink in the past month, he said just when he is asleep, and his last drink was this morning before he came in here. He has not had any nausea or vomiting. His lipase was elevated and he had some evidence of pancreatitis on CT scan. No gallstones or pericholecystic fluid. 05/25/2020. No acute events overnight. Patient currently sitting up in distress, still complaining of diffuse abdominal pain, passing flatus, has not had a bowel movement, denies any shortness of breath, chest pain, nausea, vomiting. Would like his diet to be advanced. Reason For Visit: PACREATITIS,ALCOHOLISM Physical Exam Vital Signs: Temp Pulse Resp BP Pulse Ox 98.3 F 72 16 174/91 H 100 05/25/20 14:56 05/25/20 14:56 05/25/20 14:56 05/25/20 14:56 05/25/20 14:56 Intake & Output 05/24/20 05/25/20 05/26/20 06:59 06:59 06:59 Intake Total 3023 1963 Output Total 1330 1100 Balance 1693 863 Weight 54.2 kg General appearance: PRESENT: no acute distress, thin, well-developed, well- nourished Head exam: PRESENT: atraumatic, normocephalic Respiratory exam: PRESENT: clear to auscultation kal. ABSENT: rales, rhonchi, wheezes Cardiovascular exam: PRESENT: RRR. ABSENT: diastolic murmur, rubs, systolic murmur GI/Abdominal exam: PRESENT: firm, guarding, normal bowel sounds, soft, tenderness. ABSENT: distended, mass, organolmegaly, rebound Neurological exam: PRESENT: alert, awake, oriented to person, oriented to place, oriented to time, oriented to situation, CN II-XII grossly intact. ABSENT: motor sensory deficit Results Laboratory Results: 05/25/20 06:02 05/25/20 06:02 05/25/20 05/25/20 06:02 06:02 WBC 4.5 RBC 4.55 Hgb 15.3 Hct 43.9 MCV 97 MCH 33.6 H MCHC 34.8 RDW 14.2 H Plt Count 65 L Sodium 133.9 L Potassium 3.8 Chloride 101 Carbon Dioxide 28 Anion Gap 5 BUN 5 L Creatinine 0.49 L Est GFR ( Amer) > 60 Glucose 86 Calcium 9.2 Lipase 1973.7 H Impressions: Abdomen/Pelvis CT 05/24/20 11:08 IMPRESSION: 1. There is some fluid around the pancreas. Correlate for pancreatitis. 2. Hepatic steatosis. Assessment and Plan - Diagnosis (1) Pancreatitis Qualifiers: Chronicity: acute Pancreatitis type: alcohol induced Acute pancreatitis complication: unspecified Qualified Code(s): K85.20 - Alcohol induced acute pancreatitis without necrosis or infection Is this a current diagnosis for this admission?: Yes Plan: Alcoholic pancreatitis. Triglyceride WNL. Denies any abdominal trauma. CT abdomen negative for cholelithiasis. Denies any nausea or vomiting, passing flatus. Not have any bowel movement. Wants to advance his diet. Advance diet to clear liquid. Continue IV fluids, monitor volume status and electrolytes. Opioid and non-opioid analgesics. Monitor for respiratory depression. Monitor vitals. (2) Alcoholism Is this a current diagnosis for this admission?: Yes Plan: Denies any auditory or visual hallucination. Denies any formication. Denies any anxiety. Vitals stable. History of chronic alcohol abuse. Extensively counseled on abstaining from alcohol. Vitamin supplementation. IV fluids. PRN Valium. Monitoring for withdrawal. (3) Hypertension Qualifiers: Hypertension type: essential hypertension Qualified Code(s): I10 - Essential (primary) hypertension Is this a current diagnosis for this admission?: Yes Plan: Euvolemic. SBP is in 150s to 170s. Start on lisinopril. Monitor vitals. Adjust meds as needed. IV PRN hydralazine. (4) Malnutrition Qualifiers: Malnutrition type: protein-calorie malnutrition Protein-calorie malnutrition severity: mild Qualified Code(s): E44.1 - Mild protein-calorie malnutrition Is this a current diagnosis for this admission?: Yes Plan: BMI 17.6. Mild congestion likely due to low p.o. intake due to underlying alcohol abuse. Encourage p.o. intake. Registered dietitian will be consulted. - Time Time Spent with patient: 35 or more minutes Medications reviewed and adjusted accordingly: Yes Anticipated Discharge Disposition: Home, Self Care Anticipated Discharge: within 48 hours
[2020-05-25] MEDS: LISINOPRIL 10 MG TABLET PO SCH (17:40)
[2020-05-25] MEDS: NORMAL SALINE 1000 ML 1,000 ML with POTASSIUM CHLORIDE 20 MEQ, MAGNESIUM SULFATE 8 MEQ,... IV SCH ×5 (17:40)
[2020-05-25] MEDS: SERTRALINE HCL 50 MG TABLET PO SCH (21:11)
[2020-05-26] MEDS: MORPHINE SULFATE 10 MG/ML INJ IV PRN ×5 (00:45→20:52)
[2020-05-26] MEDS: RINGERS SOLUTION,LACTATED 1,000 ML IV PRN ×4 (03:49→20:00)
[2020-05-26] MEDS: HEPARIN SOD (PORCINE) 5,000 UNIT/ML 1 ML VIAL SUBCUT SCH (05:25)
[2020-05-26 06:24] LABS: HEMATOCRIT 45.6 % (37.9-51.0); HEMOGLOBIN 15.6 g/dL (13.5-17.0); MEAN CORPUSCULAR HEMOGLOBIN 33.9 pg (27.0-33.4); MEAN CORPUSCULAR HGB CONC 34.3 g/dL (32.0-36.0); MEAN CORPUSCULAR VOLUME 99 fl (80-97); RED BLOOD COUNT 4.62 10^6/uL (4.35-5.55); RED CELL DISTRIBUTION WIDTH 14.2 % (11.5-14.0)
[2020-05-26 06:50] LABS: ANION GAP 6 (5-19); BLOOD UREA NITROGEN 4 mg/dL (7-20); CALCIUM 9.6 mg/dL (8.4-10.2); CARBON DIOXIDE 31 mmol/L (22-30); CHLORIDE 99 mmol/L (98-107); GLUCOSE 80 mg/dL (75-110); POTASSIUM 4.3 mmol/L (3.6-5.0)
[2020-05-26 06:51] LABS: PLATELET COUNT 68 10^3/uL (150-450)
[2020-05-26] MEDS: MESALAMINE 400 MG CAPSULE.DR PO SCH (09:16)
[2020-05-26] MEDS: LISINOPRIL 10 MG TABLET PO SCH (09:16)
[2020-05-26] MEDS: PANTOPRAZOLE SODIUM 40 MG VIAL IV SCH (09:17)
--- NOTE | 2020-05-26 12:04 | PDOC PROGRESS REPORT ---
Subjective Progress Note for:: 05/26/20 Subjective:: KALANI CRENSHAW is a 44 year old male who says he has a history of Crohn's disease who presents with abdominal pain that started this morning. He is not very good at describing its location or its qualities. He does say he has had pancreatitis in the past. Upon further questioning, he admits that it was as a result of alcohol. He says that he drinks 6-8 beers a day. When I asked him how long he had gone without a drink in the past month, he said just when he is asleep, and his last drink was this morning before he came in here. He has not had any nausea or vomiting. His lipase was elevated and he had some evidence of pancreatitis on CT scan. No gallstones or pericholecystic fluid. 05/25/2020. No acute events overnight. Patient currently sitting up in distress, still complaining of diffuse abdominal pain, passing flatus, has not had a bowel movement, denies any shortness of breath, chest pain, nausea, vomiting. Would like his diet to be advanced. 05/26/2020. No acute events overnight. Patient tolerating clear liquid, still complaining of persistent abdominal pain, denies any nausea or vomiting, has not had any vomiting, passing flatus, ambulatory, denies any fever, chills, nausea, vomiting, diarrhea, or any urinary symptoms. Denies any EtOH withdrawal symptoms. Reason For Visit: PACREATITIS,ALCOHOLISM Physical Exam Vital Signs: Temp Pulse Resp BP Pulse Ox 97.7 F 80 16 138/72 H 100 05/26/20 07:13 05/26/20 07:13 05/26/20 07:13 05/26/20 07:13 05/26/20 07:13 Intake & Output 05/25/20 05/26/20 05/27/20 06:59 06:59 06:59 Intake Total 3023 5846 1000 Output Total 1330 5705 Balance 9842 885 3815 Weight 54.2 kg 54.3 kg General appearance: PRESENT: no acute distress, thin Head exam: PRESENT: atraumatic, normocephalic Respiratory exam: PRESENT: clear to auscultation kal. ABSENT: rales, rhonchi, wheezes GI/Abdominal exam: PRESENT: firm, guarding, normal bowel sounds, tenderness. ABSENT: distended, mass, organolmegaly, rebound Neurological exam: PRESENT: alert, awake, oriented to person, oriented to place, oriented to time, oriented to situation, CN II-XII grossly intact. ABSENT: motor sensory deficit Results Laboratory Results: 05/26/20 05:27 05/26/20 05:27 05/26/20 05/26/20 05:27 05:27 WBC 6.0 RBC 4.62 Hgb 15.6 Hct 45.6 MCV 99 H MCH 33.9 H MCHC 34.3 RDW 14.2 H Plt Count 68 L Sodium 135.7 L Potassium 4.3 Chloride 99 Carbon Dioxide 31 H Anion Gap 6 BUN 4 L Creatinine 0.53 Est GFR ( Amer) > 60 Glucose 80 Calcium 9.6 Impressions: Abdomen/Pelvis CT 05/24/20 11:08 IMPRESSION: 1. There is some fluid around the pancreas. Correlate for pancreatitis. 2. Hepatic steatosis. Assessment and Plan - Diagnosis (1) Pancreatitis Qualifiers: Chronicity: acute Pancreatitis type: alcohol induced Acute pancreatitis complication: unspecified Qualified Code(s): K85.20 - Alcohol induced acute pancreatitis without necrosis or infection Is this a current diagnosis for this admission?: Yes Plan: Alcoholic pancreatitis. Triglyceride WNL. Denies any abdominal trauma. CT abdomen negative for cholelithiasis. Denies any nausea or vomiting, passing flatus. Not have any bowel movement. Wants to advance his diet. Advance diet to clear liquid. Continue IV fluids, monitor volume status and electrolytes. Continue opioid and non-opioid analgesics. Monitor for respiratory depression. Monitor vitals. (2) Alcoholism Is this a current diagnosis for this admission?: Yes Plan: Denies any auditory or visual hallucination. Denies any formication. Denies any anxiety. Vitals stable. History of chronic alcohol abuse. Extensively counseled on abstaining from alcohol. Vitamin supplementation. IV fluids. PRN Valium. Monitoring for withdrawal. (3) Hypertension Qualifiers: Hypertension type: essential hypertension Qualified Code(s): I10 - Essential (primary) hypertension Is this a current diagnosis for this admission?: Yes Plan: Improving. Not optimized. Start on lisinopril. Monitor vitals. Adjust meds as needed. IV PRN hydralazine. (4) Malnutrition Qualifiers: Malnutrition type: protein-calorie malnutrition Protein-calorie malnutrition severity: mild Qualified Code(s): E44.1 - Mild protein-calorie malnutrition Is this a current diagnosis for this admission?: Yes Plan: BMI 17.6. Most likely likely due to low p.o. intake due to underlying alcohol abuse. Endorses good appetite. Encourage p.o. intake. Registered dietitian will be consulted. (5) Thrombocytopenia Is this a current diagnosis for this admission?: Yes Plan: Chronic worsening on this admission. Likely due to hepatic steatosis. No sign of active bleeding. Denies any nosebleed, hematemesis, hemoptysis, hematuria, hematochezia or melena. Hold subcutaneous heparin. Patient encouraged to ambulate. CBC tomorrow. Monitor for bleeding. Outpatient PCP and gastroenterology follow-up. - Time Time Spent with patient: 15-24 minutes Anticipated Discharge Disposition: Home, Self Care Anticipated Discharge: within 48 hours
[2020-05-26] MEDS: HYDRALAZINE HCL INJ/PF 20 MG/1 ML SDV IV PRN (12:32)
[2020-05-26] MEDS: SERTRALINE HCL 50 MG TABLET PO SCH (21:16)
[2020-05-27] MEDS: RINGERS SOLUTION,LACTATED 1,000 ML IV PRN ×4 (00:50→16:39)
[2020-05-27] MEDS: MORPHINE SULFATE 10 MG/ML INJ IV PRN ×6 (00:51→22:05)
[2020-05-27 05:02] LABS: HEMATOCRIT 44.2 % (37.9-51.0); HEMOGLOBIN 15.1 g/dL (13.5-17.0); MEAN CORPUSCULAR HEMOGLOBIN 33.7 pg (27.0-33.4); MEAN CORPUSCULAR HGB CONC 34.2 g/dL (32.0-36.0); MEAN CORPUSCULAR VOLUME 98 fl (80-97); RED BLOOD COUNT 4.49 10^6/uL (4.35-5.55); RED CELL DISTRIBUTION WIDTH 14.1 % (11.5-14.0); WHITE BLOOD COUNT 4.7 10^3/uL (4.0-10.5)
[2020-05-27 05:16] LABS: ANION GAP 8 (5-19); BLOOD UREA NITROGEN 3 mg/dL (7-20); CALCIUM 9.6 mg/dL (8.4-10.2); CARBON DIOXIDE 27 mmol/L (22-30); CHLORIDE 100 mmol/L (98-107); GLUCOSE 91 mg/dL (75-110); POTASSIUM 3.7 mmol/L (3.6-5.0)
[2020-05-27 05:22] LABS: PLATELET COUNT 62 10^3/uL (150-450)
[2020-05-27] MEDS: PANTOPRAZOLE SODIUM 40 MG VIAL IV SCH (09:31)
[2020-05-27] MEDS: MESALAMINE 400 MG CAPSULE.DR PO SCH (09:32)
[2020-05-27] MEDS: LISINOPRIL 10 MG TABLET PO SCH (09:32)
[2020-05-27] MEDS: HEPARIN SOD (PORCINE) 5,000 UNIT/ML 1 ML VIAL SUBCUT SCH (13:03)
--- NOTE | 2020-05-27 13:35 | PDOC PROGRESS REPORT ---
Subjective Progress Note for:: 05/27/20 Subjective:: KALANI CRENSHAW is a 44 year old male who says he has a history of Crohn's disease who presents with abdominal pain that started this morning. He is not very good at describing its location or its qualities. He does say he has had pancreatitis in the past. Upon further questioning, he admits that it was as a result of alcohol. He says that he drinks 6-8 beers a day. When I asked him how long he had gone without a drink in the past month, he said just when he is asleep, and his last drink was this morning before he came in here. He has not had any nausea or vomiting. His lipase was elevated and he had some evidence of pancreatitis on CT scan. No gallstones or pericholecystic fluid. 05/25/2020. No acute events overnight. Patient currently sitting up in distress, still complaining of diffuse abdominal pain, passing flatus, has not had a bowel movement, denies any shortness of breath, chest pain, nausea, vomiting. Would like his diet to be advanced. 05/26/2020. No acute events overnight. Patient tolerating clear liquid, still complaining of persistent abdominal pain, denies any nausea or vomiting, has not had any vomiting, passing flatus, ambulatory, denies any fever, chills, nausea, vomiting, diarrhea, or any urinary symptoms. Denies any EtOH withdrawal symptoms. 05/27/2020. No acute events overnight. Patient still complaining of abdominal pain, tolerating clear liquid, has not been passing flatus, denies any fever, chills, nausea, vomiting, urinary symptoms. Wants his diet to be advanced to full liquid. Reason For Visit: PACREATITIS,ALCOHOLISM Physical Exam Vital Signs: Temp Pulse Resp BP Pulse Ox 97.6 F 66 20 145/85 H 100 05/27/20 11:46 05/27/20 11:46 05/27/20 11:46 05/27/20 11:46 05/27/20 11:46 Intake & Output 05/26/20 05/27/20 05/28/20 06:59 06:59 06:59 Intake Total 5846 6081 1000 Output Total 0020 7445 Balance 141 2005 999 Weight 54.3 kg 54.7 kg 54.7 kg General appearance: PRESENT: no acute distress, thin Head exam: PRESENT: atraumatic, normocephalic Respiratory exam: PRESENT: clear to auscultation kal. ABSENT: rales, rhonchi, wheezes Cardiovascular exam: PRESENT: RRR. ABSENT: diastolic murmur, rubs, systolic murmur GI/Abdominal exam: PRESENT: normal bowel sounds, soft, tenderness. ABSENT: distended, guarding, mass, organolmegaly, rebound Extremities exam: PRESENT: full ROM. ABSENT: calf tenderness, clubbing, pedal e veronica Neurological exam: PRESENT: alert, awake, oriented to person, oriented to place, oriented to time, oriented to situation, CN II-XII grossly intact. ABSENT: motor sensory deficit Results Laboratory Results: 05/27/20 04:51 05/27/20 04:51 05/27/20 05/27/20 04:51 04:51 WBC 4.7 RBC 4.49 Hgb 15.1 Hct 44.2 MCV 98 H MCH 33.7 H MCHC 34.2 RDW 14.1 H Plt Count 62 L Sodium 135.1 L Potassium 3.7 Chloride 100 Carbon Dioxide 27 Anion Gap 8 BUN 3 L Creatinine 0.47 L Est GFR ( Amer) > 60 Glucose 91 Calcium 9.6 Impressions: Abdomen/Pelvis CT 05/24/20 11:08 IMPRESSION: 1. There is some fluid around the pancreas. Correlate for pancreatitis. 2. Hepatic steatosis. Assessment and Plan - Diagnosis (1) Pancreatitis Qualifiers: Chronicity: acute Pancreatitis type: alcohol induced Acute pancreatitis complication: unspecified Qualified Code(s): K85.20 - Alcohol induced acute pancreatitis without necrosis or infection Is this a current diagnosis for this admission?: Yes Plan: Alcoholic pancreatitis. Triglyceride WNL. Denies any abdominal trauma. CT abdomen negative for cholelithiasis. Denies any nausea or vomiting, passing flatus. Not have any bowel movement. Wants to advance his diet. Advance diet to full liquid. Advance diet as tolerated. Continue IV fluids, monitor volume status and electrolytes. Continue opioid and non-opioid analgesics. Monitor for respiratory depression. Monitor vitals. (2) Alcoholism Is this a current diagnosis for this admission?: Yes Plan: Denies any auditory or visual hallucination. Denies any formication. Denies any anxiety. Vitals stable. History of chronic alcohol abuse. Extensively counseled on abstaining from alcohol. Vitamin supplementation. IV fluids. PRN Valium. Monitoring for withdrawal. (3) Hypertension Qualifiers: Hypertension type: essential hypertension Qualified Code(s): I10 - Essential (primary) hypertension Is this a current diagnosis for this admission?: Yes Plan: Improving. Optimized. Lisinopril 20 mg p.o. daily. Monitor vitals. Adjust meds as needed. IV PRN hydralazine. (4) Malnutrition Qualifiers: Malnutrition type: protein-calorie malnutrition Protein-calorie malnutrition severity: mild Qualified Code(s): E44.1 - Mild protein-calorie malnutrition Is this a current diagnosis for this admission?: Yes Plan: BMI 17.6. Most likely likely due to low p.o. intake due to underlying alcohol abuse. Endorses good appetite. Encourage p.o. intake. Registered dietitian will be consulted. (5) Thrombocytopenia Is this a current diagnosis for this admission?: Yes Plan: Chronic worsening on this admission. Likely due to hepatic steatosis. No sign of active bleeding. Denies any nosebleed, hematemesis, hemoptysis, hematuria, hematochezia or melena. Hold subcutaneous heparin. Patient encouraged to ambulate. CBC tomorrow. Monitor for bleeding. Outpatient PCP and gastroenterology follow-up. - Time Time Spent with patient: 15-24 minutes Smoking Cessation Education: 3 to 10 minutes Medications reviewed and adjusted accordingly: Yes Anticipated Discharge Disposition: Home, Self Care Anticipated Discharge: within 24 hours
[2020-05-27] MEDS ORDERED: ONDANSETRON HCL INJ/PF 4 MG/2 ML SDV IV PRN (14:30)
[2020-05-27] MEDS: SERTRALINE HCL 50 MG TABLET PO SCH (22:06)
[2020-05-27] MEDS ORDERED: MAGNESIUM HYDROXIDE SUSP 30 ML UDCUP ONE (22:50)
[2020-05-27] MEDS: MAGNESIUM HYDROXIDE SUSP 30 ML UDCUP PO PRN (22:53)
[2020-05-28] MEDS: HYDRALAZINE HCL INJ/PF 20 MG/1 ML SDV IV PRN (01:49)
[2020-05-28] MEDS: RINGERS SOLUTION,LACTATED 1,000 ML IV PRN ×3 (01:50→13:27)
[2020-05-28] MEDS: MORPHINE SULFATE 10 MG/ML INJ IV PRN ×3 (02:45→10:54)
[2020-05-28 07:26] LABS: HEMATOCRIT 44.4 % (37.9-51.0); HEMOGLOBIN 15.1 g/dL (13.5-17.0); MEAN CORPUSCULAR HEMOGLOBIN 33.2 pg (27.0-33.4); MEAN CORPUSCULAR VOLUME 98 fl (80-97); RED BLOOD COUNT 4.54 10^6/uL (4.35-5.55); WHITE BLOOD COUNT 4.9 10^3/uL (4.0-10.5)
[2020-05-28 07:49] LABS: ANION GAP 9 (5-19); BLOOD UREA NITROGEN 2 mg/dL (7-20); CALCIUM 9.8 mg/dL (8.4-10.2); CARBON DIOXIDE 27 mmol/L (22-30); CHLORIDE 100 mmol/L (98-107); GLUCOSE 93 mg/dL (75-110); POTASSIUM 3.6 mmol/L (3.6-5.0)
[2020-05-28 08:37] LABS: PLATELET COUNT 76 10^3/uL (150-450)
[2020-05-28] MEDS: LISINOPRIL 10 MG TABLET PO SCH (09:25)
[2020-05-28] MEDS: MAGNESIUM HYDROXIDE SUSP 30 ML UDCUP PO PRN (09:25)
[2020-05-28] MEDS: PANTOPRAZOLE SODIUM 40 MG VIAL IV SCH (09:26)
[2020-05-28] MEDS: MESALAMINE 400 MG CAPSULE.DR PO SCH (09:27)
[2020-05-28] MEDS ORDERED: DOCUSATE SODIUM 100 MG CAPSULE PO SCH (10:00)
[2020-05-28] MEDS ORDERED: MAGNESIUM CITRATE 296 ML BOTTLE PO ONE (13:30)
[2020-05-28 14:08] VITALS: BP 164/99
--- NOTE | 2020-05-28 15:23 | PDOC DISCHARGE SUMMARY ---
Impression - Admit/DC Date/PCP Admission Date/Primary Care Provider: 05/24/20 15:12 ZAYMANJULA JOSHIJENNIFER REED, [facility] Discharge Date: 05/28/20 - Assessment Summary: (1) Pancreatitis Qualifiers: Chronicity: acute Pancreatitis type: alcohol induced Acute pancreatitis complication: unspecified Qualified Code(s): K85.20 - Alcohol induced acute pancreatitis without necrosis or infection Is this a current diagnosis for this admission?: Yes Plan: Alcoholic pancreatitis. Triglyceride WNL. Denies any abdominal trauma. CT abdomen negative for cholelithiasis. Denies any nausea or vomiting, passing flatus. Not have any bowel movement. Wants to advance his diet. Advance diet to full liquid. Advance diet as tolerated. Continue IV fluids, monitor volume status and electrolytes. Continue opioid and non-opioid analgesics. Monitor for respiratory depression. Monitor vitals. 05/28/2020-tolerated diet well. Lipase levels came down to 573. Patient is expressing desire to go home today. I tried to convince him to keep extra day but he refused and prefers to go home. Patient is strongly advised to follow-up with primary care physician. (2) Alcoholism Is this a current diagnosis for this admission?: Yes Plan: Denies any auditory or visual hallucination. Denies any formication. Denies any anxiety. Vitals stable. History of chronic alcohol abuse. Extensively counseled on abstaining from alcohol. Vitamin supplementation. IV fluids. PRN Valium. Monitoring for withdrawal. 05/28/2020-patient has history of heavy alcohol use counseling was provided for more than 15 minutes. Strongly advised to cut down the alcohol intake. (3) Hypertension Qualifiers: Hypertension type: essential hypertension Qualified Code(s): I10 - Essential (primary) hypertension Is this a current diagnosis for this admission?: Yes Plan: Improving. Optimized. Lisinopril 20 mg p.o. daily. Monitor vitals. Adjust meds as needed. IV PRN hydralazine. 05/28/2020-patient blood pressure today is 140/92. Low-salt diet is advised. (4) Malnutrition Qualifiers: Malnutrition type: protein-calorie malnutrition Protein-calorie malnutrition severity: mild Qualified Code(s): E44.1 - Mild protein-calorie malnutrition Is this a current diagnosis for this admission?: Yes Plan: BMI 17.6. Most likely likely due to low p.o. intake due to underlying alcohol abuse. Endorses good appetite. Encourage p.o. intake. Registered dietitian will be consulted. (5) Thrombocytopenia Is this a current diagnosis for this admission?: Yes Plan: Chronic worsening on this admission. Likely due to hepatic steatosis. No sign of active bleeding. Denies any nosebleed, hematemesis, hemoptysis, hematuria, hematochezia or melena. Hold subcutaneous heparin. Patient encouraged to ambulate. CBC tomorrow. Monitor for bleeding. Outpatient PCP and gastroenterology follow-up. - Additional Information Discharge Diet: Cardiac Discharge Activity: Activity As Tolerated Referrals: [facility] [Other] - 06/04/20 2:15 pm (WITH SHASHI SCHAFFER) Home Medications: Mesalamine [Asacol Sr 400 mg Capsule] 1,600 mg PO DAILY 05/25/20 Omeprazole 40 mg PO DAILY 05/25/20 Sertraline HCl 100 mg PO QHS 05/25/20 History of Present Illiness History of Present Illness: KALANI CRENSHAW is a 44 year old male 44 year old male who says he has a history of Crohn's disease who presents with abdominal pain that started this morning. He is not very good at describing its location or its qualities. He does say he has had pancreatitis in the past. Upon further questioning, he admits that it was as a result of alcohol. He says that he drinks 6-8 beers a day. When I asked him how long he had gone without a drink in the past month, he said just when he is asleep, and his last drink was this morning before he came in here. He has not had any nausea or vomiting. His lipase was elevated and he had some evidence of pancreatitis on CT scan. No gallstones or pericholecystic fluid. Hospital Course Hospital Course: 44 year old male who says he has a history of Crohn's disease who presents with abdominal pain that started this morning. He is not very good at describing its location or its qualities. He does say he has had pancreatitis in the past. Upon further questioning, he admits that it was as a result of alcohol. He says that he drinks 6-8 beers a day. When I asked him how long he had gone without a drink in the past month, he said just when he is asleep, and his last drink was this morning before he came in here. He has not had any nausea or vomiting. His lipase was elevated and he had some evidence of pancreatitis on CT scan. No gallstones or pericholecystic fluid. 05/25/2020. No acute events overnight. Patient currently sitting up in distress, still complaining of diffuse abdominal pain, passing flatus, has not had a bowel movement, denies any shortness of breath, chest pain, nausea, vomiting. Would like his diet to be advanced. 05/26/2020. No acute events overnight. Patient tolerating clear liquid, still complaining of persistent abdominal pain, denies any nausea or vomiting, has not had any vomiting, passing flatus, ambulatory, denies any fever, chills, nausea, vomiting, diarrhea, or any urinary symptoms. Denies any EtOH withdrawal symptoms. 05/27/2020. No acute events overnight. Patient still complaining of abdominal pain, tolerating clear liquid, has not been passing flatus, denies any fever, chills, nausea, vomiting, urinary symptoms. Wants his diet to be advanced to full liquid. 05/28/2020-patient able to tolerate the diet well today. Denies any abdominal pains nausea vomiting's. Expressing desire to go home.. Tried my best to convince him to keep him here in the night but the patient refused. Physical Exam Vital Signs: Temp Pulse Resp BP Pulse Ox 97.7 F 88 16 164/99 H 99 05/28/20 14:04 05/28/20 14:04 05/28/20 14:04 05/28/20 14:04 05/28/20 14:04 Intake & Output 05/27/20 05/28/20 05/29/20 06:59 06:59 06:59 Intake Total 6081 6050 1253 Output Total 4075 4375 300 Balance 2005 1675 953 Weight 54.7 kg 60.3 kg General appearance: PRESENT: no acute distress, thin Head exam: PRESENT: atraumatic Eye exam: PRESENT: PERRLA Mouth exam: PRESENT: moist, tongue midline Teeth exam: PRESENT: poor dentation Neck exam: ABSENT: carotid bruit, JVD, lymphadenopathy, thyromegaly Respiratory exam: PRESENT: stridor Cardiovascular exam: PRESENT: RRR. ABSENT: diastolic murmur, rubs, systolic murmur GI/Abdominal exam: PRESENT: normal bowel sounds, soft. ABSENT: distended, guarding, mass, organolmegaly, rebound, tenderness Rectal exam: PRESENT: deferred Extremities exam: PRESENT: full ROM. ABSENT: calf tenderness, clubbing, pedal edema Neurological exam: PRESENT: alert, awake, oriented to person, oriented to place, oriented to time, oriented to situation, CN II-XII grossly intact. ABSENT: motor sensory deficit Psychiatric exam: PRESENT: appropriate affect, normal mood. ABSENT: homicidal ideation, suicidal ideation Results Laboratory Results: WBC 4.9 10^3/uL (4.0-10.5) 05/28/20 06:27 RBC 4.54 10^6/uL (4.35-5.55) 05/28/20 06:27 Hgb 15.1 g/dL (13.5-17.0) 05/28/20 06:27 Hct 44.4 % (37.9-51.0) 05/28/20 06:27 MCV 98 fl (80-97) H 05/28/20 06:27 MCH 33.2 pg (27.0-33.4) 05/28/20 06:27 MCHC 34.0 g/dL (32.0-36.0) 05/28/20 06:27 RDW 14.0 % (11.5-14.0) 05/28/20 06:27 Plt Count 76 10^3/uL (150-450) L 05/28/20 06:27 Lymph % (Auto) 21.9 % (13-45) 05/24/20 09:51 [place] % (Auto) 9.2 % (3-13) 05/24/20 09:51 Eos % (Auto) 2.7 % (0-6) 05/24/20 09:51 Baso % (Auto) 0.5 % (0-2) 05/24/20 09:51 Absolute Neuts (auto) 2.3 10^3/uL (1.7-8.2) 05/24/20 09:51 Absolute Lymphs (auto) 0.8 10^3/uL (0.5-4.7) 05/24/20 09:51 Absolute Monos (auto) 0.3 10^3/uL (0.1-1.4) 05/24/20 09:51 Absolute Eos (auto) 0.1 10^3/uL (0.0-0.6) 05/24/20 09:51 Absolute Basos (auto) 0.0 10^3/uL (0.0-0.2) 05/24/20 09:51 Seg Neutrophils % 65.7 % (42-78) 05/24/20 09:51 Sodium 136.2 mmol/L (137-145) L 05/28/20 06:27 Potassium 3.6 mmol/L (3.6-5.0) 05/28/20 06:27 Chloride 100 mmol/L (98-107) 05/28/20 06:27 Carbon Dioxide 27 mmol/L (22-30) 05/28/20 06:27 Anion Gap 9 (5-19) 05/28/20 06:27 BUN 2 mg/dL (7-20) L 05/28/20 06:27 Creatinine 0.48 mg/dL (0.52-1.25) L 05/28/20 06:27 Est GFR ( Amer) > 60 (>60) 05/28/20 06:27 Est GFR (MDRD) Non-Af > 60 (>60) 05/28/20 06:27 Glucose 93 mg/dL (75-110) 05/28/20 06:27 Calcium 9.8 mg/dL (8.4-10.2) 05/28/20 06:27 Total Bilirubin 0.6 mg/dL (0.2-1.3) 05/24/20 09:51 Direct Bilirubin 0.1 mg/dL (0.0-0.4) 05/24/20 09:51 Neonat Total Bilirubin Not Reportable 05/24/20 09:51 Neonat Direct Bilirubin Not Reportable 05/24/20 09:51 Neonat Indirect Bili Not Reportable 05/24/20 09:51 AST 207 U/L (17-59) H 05/24/20 09:51 ALT 145 U/L (<50) H 05/24/20 09:51 Alkaline Phosphatase 93 U/L (38-126) 05/24/20 09:51 C-Reactive Protein < 5.0 mg/L (<10.0) 05/24/20 09:51 Total Protein 7.5 g/dL (6.3-8.2) 05/24/20 09:51 Albumin 4.5 g/dL (3.5-5.0) 05/24/20 09:51 Triglycerides 75 mg/dL (<150) 05/24/20 09:51 Lipase 573.7 U/L (23-300) H 05/28/20 06:27 Urine Color YELLOW 05/24/20 09:51 Urine Appearance CLEAR 05/24/20 09:51 Urine pH 5.0 (5.0-9.0) 05/24/20 09:51 Ur Specific [place] 1.017 05/24/20 09:51 Urine Protein 30 mg/dL (NEGATIVE) H 05/24/20 09:51 Urine Glucose (UA) 50 mg/dL (NEGATIVE) H 05/24/20 09:51 Urine Ketones NEGATIVE mg/dL (NEGATIVE) 05/24/20 09:51 Urine Blood NEGATIVE (NEGATIVE) 05/24/20 09:51 Urine Nitrite NEGATIVE (NEGATIVE) 05/24/20 09:51 Urine Bilirubin NEGATIVE (NEGATIVE) 05/24/20 09:51 Urine Urobilinogen NEGATIVE mg/dL (<2.0) 05/24/20 09:51 Ur Leukocyte Esterase TRACE (NEGATIVE) H 05/24/20 09:51 Urine WBC (Auto) 4 /HPF 05/24/20 09:51 Urine RBC (Auto) 1 /HPF 05/24/20 09:51 U Hyaline Cast (Auto) 1 /LPF 05/24/20 09:51 Urine Mucus (Auto) RARE /LPF 05/24/20 09:51 Urine Ascorbic Acid NEGATIVE (NEGATIVE) 05/24/20 09:51 Urine Opiates Screen UNCONFIRMED POSITIVE 05/24/20 09:51 Urine Methadone Screen NEGATIVE 05/24/20 09:51 Ur Barbiturates Screen NEGATIVE 05/24/20 09:51 Ur Phencyclidine Scrn NEGATIVE 05/24/20 09:51 Ur Amphetamines Screen NEGATIVE 05/24/20 09:51 U Benzodiazepines Scrn UNCONFIRMED POSITIVE 05/24/20 09:51 Urine Cocaine Screen NEGATIVE 05/24/20 09:51 U Marijuana (THC) Screen NEGATIVE 05/24/20 09:51 Serum Alcohol 102 mg/dL (NONE DETECTED) 05/24/20 09:51 Impressions: Abdomen/Pelvis CT 05/24/20 11:08 IMPRESSION: 1. There is some fluid around the pancreas. Correlate for pancreatitis. 2. Hepatic steatosis. Plan Time Spent: Greater than 30 Minutes Stroke Is this a Stroke Patient?: No Acute Heart Failure - Is this a Heart Failure Patient?: No
== END 2020-05-28 15:00 | disposition home or self-care (01) | DRG 439 ==
LOC: ER 09:30 → EH 15:12 → 4N 17:01
PROVIDERS: ADMIT Family Medicine; ATTEND Internal Medicine
DX: K85.20 Alcohol induced acute pancreatitis without necrosis or infection (principal); E44.1 Mild protein-calorie malnutrition; K50.90 Crohn's disease, unspecified, without complications; Z68.1 Body mass index [BMI] 19.9 or less, adult; F10.20 Alcohol dependence, uncomplicated; D69.59 Other secondary thrombocytopenia; F17.200 Nicotine dependence, unspecified, uncomplicated
CPT/HCPCS: 36415; 74177; 80048; 80053; 80307; 81001; 83690; 84478; 85025; 85027; 86140; 96361; 96374; 96375; 99285; C9113; J0360; J1170; J2270; J2405; J3010; J3411; J3475; J3480; J3490; J7030; J7120

== ENCOUNTER 2020-08-30 21:24 | Emergency (ER) | payer SELFPAY ==
[2020-08-30] MEDS ORDERED: NORMAL SALINE 1000 ML 1,000 ML IV ONE (22:08)
[2020-08-30] MEDS ORDERED: OXYCODONE-ACETAMINOPHEN 5-325 MG TABLET PO ONE (22:08)
--- NOTE | 2020-08-30 22:12 | ER Document Report ---
ED Medical Screen (RME) - General Chief Complaint: Abdominal Pain Stated Complaint: ABDOMINAL PAIN Time Seen by Provider: 08/30/20 22:02 Primary Care Provider: ZAY REED FNP [Primary Care Provider] - Follow up as needed Mode of Arrival: Ambulatory Information source: Patient Notes: 45-year-old male presented ED for complaint of severe right upper quadrant abdominal pain he states he is not having any nausea or vomiting. He states he is normally takes omeprazole for pancreatitis and he has been out of that for 2 or 3 days to his many times. He states he is also been taking a lot of ibuprofen. He does have a history of Crohn's. I explained to him he is not supposed to take ibuprofen around his Crohn's disease. I have ordered blood in urine. He states he normally takes morphine when he get pain gets this bad. I told him I cannot give him morphine in the triage area but I will order him a Percocet and he get his blood and IV fluids started when he gets into a room in the main ED. Patient is alert oriented respirations regular nonlabored. Does have severe tenderness to the right upper quadrant. I have greeted and performed a rapid initial assessment of this patient. A comprehensive ED assessment and evaluation of the patient, analysis of test results and completion of medical decision making process will be conducted by an additional ED providers. TRAVEL OUTSIDE OF THE [place] IN LAST 30 DAYS: No - Related Data Allergies/Adverse Reactions: hydrocodone bitartrate [From Vicodin] Allergy (Intermediate, Verified 05/24/20 09:41) Itching Past Medical History - Social History Family history: Reviewed & Not Pertinent - Past Medical History Cardiac Medical History: Denies: Hx Coronary Artery Disease, Hx Heart Attack, Hx Hypertension Pulmonary Medical History: Denies: Hx Asthma, Hx Bronchitis, Hx COPD, Hx Pneumonia Neurological Medical History: Denies: Hx Cerebrovascular Accident, Hx Seizures Renal/ Medical History: Denies: Hx Peritoneal Dialysis GI Medical History: Reports: Hx Crohn's Disease, Hx Gastroesophageal Reflux Disease Musculoskeltal Medical History: Denies Hx Arthritis Psychiatric Medical History: Reports: Hx Depression Past Surgical History: Denies: Hx Pacemaker - Immunizations Immunizations up to date: Yes Hx Diphtheria, Pertussis, Tetanus Vaccination: Yes Physical Exam - Vital signs Vitals: Temp Pulse Resp BP Pulse Ox 97.9 F 106 H 20 144/101 H 98 10/30/20 21:56 08/30/20 21:56 08/30/20 21:56 08/30/20 21:56 08/30/20 21:56 Course - Vital Signs Vital signs: Temp Pulse Resp BP Pulse Ox 97.9 F 106 H 20 144/101 H 98 08/30/20 21:56 08/30/20 21:56 08/30/20 21:56 08/30/20 21:56 08/30/20 21:56 Doctor's Discharge - Discharge Referrals: ZAY REED FNP [Primary Care Provider] - Follow up as needed
[2020-08-30 23:22] LABS: ABSOLUTE BASOPHILS # (AUTO) 0.1 10^3/uL (0.0-0.2); ABSOLUTE EOSINOPHILS # (AUTO) 0.3 10^3/uL (0.0-0.6); ABSOLUTE LYMPHOCYTES (AUTO) 1.6 10^3/uL (0.5-4.7); ABSOLUTE MONOCYTES (AUTO) 0.9 10^3/uL (0.1-1.4); ABSOLUTE NEUT (AUTO) 4.9 10^3/uL (1.7-8.2); BASOPHILS % (AUTO) 0.8 % (0-2); EOSINOPHILS % (AUTO) 3.4 % (0-6); HEMATOCRIT 49.9 % (37.9-51.0); HEMOGLOBIN 17.2 g/dL (13.5-17.0); LYMPHOCYTES % (AUTO) 20.4 % (13-45); MEAN CORPUSCULAR HEMOGLOBIN 33.4 pg (27.0-33.4); MEAN CORPUSCULAR HGB CONC 34.5 g/dL (32.0-36.0); MEAN CORPUSCULAR VOLUME 97 fl (80-97); MONOCYTES % (AUTO) 11.7 % (3-13); PLATELET COUNT 183 10^3/uL (150-450); RED BLOOD COUNT 5.16 10^6/uL (4.35-5.55); RED CELL DISTRIBUTION WIDTH 13.9 % (11.5-14.0); SEGMENTED NEUTROPHILS % (AUTO) 63.7 % (42-78); TOTAL CELLS COUNTED % (AUTO) 100 %; WHITE BLOOD COUNT 7.6 10^3/uL (4.0-10.5)
[2020-08-30 23:39] LABS: ALBUMIN 4.2 g/dL (3.5-5.0); ALKALINE PHOSPHATASE 99 U/L (38-126); ANION GAP 12 (5-19); ASPARTATE AMINO TRANSFERASE 89 U/L (17-59); BILIRUBIN,DIRECT 0.2 mg/dL (0.0-0.4); BILIRUBIN,TOTAL 0.3 mg/dL (0.2-1.3); BLOOD UREA NITROGEN 4 mg/dL (7-20); CALCIUM 9.7 mg/dL (8.4-10.2); CARBON DIOXIDE 20 mmol/L (22-30); CHLORIDE 107 mmol/L (98-107); GLUCOSE 83 mg/dL (75-110); POTASSIUM 4.2 mmol/L (3.6-5.0); TOTAL PROTEIN 7.3 g/dL (6.3-8.2)
[2020-08-31] MEDS ORDERED: MORPHINE SULFATE 10 MG/ML INJ IV ONE (01:37)
[2020-08-31] MEDS ORDERED: ONDANSETRON HCL INJ/PF 4 MG/2 ML SDV IV ONE (01:37)
[2020-08-31 01:41] LABS: APPEARANCE,URINE CLEAR; BILIRUBIN,URINE NEGATIVE (NEGATIVE); COLOR,URINE STRAW; GLUCOSE, URINE NEGATIVE (NEGATIVE); KETONES,URINE NEGATIVE (NEGATIVE); PROTEIN,URINE NEGATIVE (NEGATIVE); URINE SPECIFIC GRAVITY 1.004; UROBILINOGEN,URINE NEGATIVE mg/dL (<2.0)
--- NOTE | 2020-08-31 01:42 | ER Document Report ---
ED GI/ - General Chief Complaint: Abdominal Pain Stated Complaint: ABDOMINAL PAIN Time Seen by Provider: 08/30/20 22:02 Primary Care Provider: ZAY REED FNP [Primary Care Provider] - Follow up as needed Mode of Arrival: Ambulatory Notes: Patient is a 45-year-old male who comes emergency department for chief complaint of right upper quadrant pain that started at 4 AM this morning. He reports severe pain, he did eat a roast beef sandwich which then pain worsened, he states that the pain wraps around both sides of his abdomen but is worse on the right. He denies vomiting. He states he has had pancreatitis before, he admits to alcohol abuse in the past, last time he drank was last night although he states he has barely had any alcohol recently. He is still has a gallbladder. He also has a history of Crohn's disease and follows with Dr. Sánchez, he states he has been compliant with his medications for this, he is not on steroids. He denies fever, bloody bowel movements, or history of bowel obstructions. He denies any abdominal surgeries. He denies recreational drugs. He smokes. TRAVEL OUTSIDE OF THE [place] IN LAST 30 DAYS: No - Related Data Allergies/Adverse Reactions: hydrocodone bitartrate [From Vicodin] Allergy (Intermediate, Verified 05/24/20 09:41) Itching Home Medications: omeprazole, crohn disease med,zoloft Past Medical History - General Information source: Patient - Social History Smoking Status: Current Every Day Smoker Smoking Education Provided: Yes - <3 min Frequency of alcohol use: Heavy Drug Abuse: None Lives with: Family Family History: Reviewed & Not Pertinent - Past Medical History Cardiac Medical History: Denies: Hx Coronary Artery Disease, Hx Heart Attack, Hx Hypertension Pulmonary Medical History: Denies: Hx Asthma, Hx Bronchitis, Hx COPD, Hx Pneumonia Neurological Medical History: Denies: Hx Cerebrovascular Accident, Hx Seizures Renal/ Medical History: Denies: Hx Peritoneal Dialysis GI Medical History: Reports: Hx Crohn's Disease, Hx Gastroesophageal Reflux Disease Musculoskeletal Medical History: Denies Hx Arthritis Psychiatric Medical History: Reports: Hx Depression Past Surgical History: Denies: Hx Pacemaker - Immunizations Immunizations up to date: Yes Hx Diphtheria, Pertussis, Tetanus Vaccination: Yes Hx Pneumococcal Vaccination: 11/01/00 Review of Systems - Review of Systems Constitutional: No symptoms reported EENT: No symptoms reported Cardiovascular: No symptoms reported Respiratory: No symptoms reported Gastrointestinal: See HPI Genitourinary: No symptoms reported Male Genitourinary: No symptoms reported Musculoskeletal: No symptoms reported Skin: No symptoms reported Hematologic/Lymphatic: No symptoms reported Neurological/Psychological: No symptoms reported Physical Exam - Vital signs Vitals: Temp Pulse Resp BP Pulse Ox 97.9 F 106 H 20 142/84 H 98 08/30/20 21:56 08/30/20 21:56 08/30/20 21:56 08/30/20 21:56 08/30/20 21:56 - Notes Notes: GENERAL: Alert, interacts well. Patient appears mildly uncomfortable but does not appear to be in severe distress HEAD: Normocephalic, atraumatic. EYES: Pupils equal, round, and reactive to light. Extraocular movements intact. ENT: Oral mucosa moist, tongue midline. Oropharynx unremarkable. Airway patent. NECK: Full range of motion. Supple. Trachea midline. No lymphadenopathy. LUNGS: Clear to auscultation bilaterally, no wheezes, rales, or rhonchi. No respiratory distress. Non-tender chest wall. HEART: Regular rate and rhythm. No murmur ABDOMEN: Tenderness in the upper abdomen generally with complaining on palpation but no rigidity or overt guarding. Mid to lower abdominal exam is completely unremarkable. Bowel sounds present throughout. GENITOURINARY: Deferred EXTREMITIES: Moves all 4 extremities spontaneously. No edema, normal radial and dorsalis pedis pulses bilaterally. No cyanosis. BACK: no cervical, thoracic, lumbar midline tenderness. No saddle anesthesia, normal distal neurovascular exam. Moves all extremities in full range of motion. NEUROLOGICAL: Alert and oriented x3. Normal speech. Cranial nerves II through XII grossly intact. Strength 5/5 in all extremities. PSYCH: Normal affect, normal mood. SKIN: Dustin complexion Course - Re-evaluation Re-evalutation: Patient is not tachycardic on my exam. He does not appear to be in severe pain but he does have tenderness in the upper abdomen generally. Mid to lower abdomen is unremarkable. Remaining evaluation unremarkable. Patient has not had any vomiting, no fever. Initial tachycardia resolved after patient was me dicated and given IV fluids. CBC unremarkable, chemistry shows mildly elevated LFTs with AST greater than ALT, pancreatitis with lipase of 1198. Urinalysis unremarkable. Ultrasound performed and shows no cholelithiasis, dilated common bile duct, or acute findings. On reevaluation patient has significant improvements, no complaints, he is tolerating p.o. without any difficulty, he is asking to go home. Because patient is doing so well and is tolerating p.o. patient will be medicated at home with specific instructions and return precautions. I discussed at length that patient must stop drinking alcohol, I did discuss potential detox follow- up, patient and significant other state understanding and agreement. Stable and well-appearing at time of discharge. - Vital Signs Vital signs: Temp Pulse Resp BP Pulse Ox 97.9 F 106 H 17 114/70 97 08/31/20 01:00 08/30/20 21:56 08/31/20 03:02 08/31/20 03:02 08/31/20 03:02 - Laboratory Result Diagrams: 08/30/20 23:10 08/30/20 23:10 Laboratory results interpreted by me: 08/30/20 08/30/20 23:10 23:10 Hgb 17.2 H Carbon Dioxide 20 L BUN 4 L AST 89 H ALT 65 H Lipase 1198.7 H Discharge - Discharge Clinical Impression: Upper abdominal pain Alcohol-induced pancreatitis Qualifiers: Chronicity: acute Acute pancreatitis complication: unspecified Qualified Code(s): K85.20 - Alcohol induced acute pancreatitis without necrosis or infection Condition: Stable Disposition: HOME, SELF-CARE Additional Instructions: Your work-up indicates pancreatitis. No other concerning findings are seen at this time. Take the pain and nausea medication as prescribed if needed, start with clear fluid diet, progress to bland diet. Continue your current medications. Follow-up with primary care. Do not drink any alcohol, unfortunately from now on you will not be able to drink alcohol. Follow-up with detox if desired. See below referral. Return if you worsen including severe worsening pain, vomiting, fever, or any other concerning or worsening symptoms. Prescriptions: Oxycodone HCl/Acetaminophen [Percocet 5-325 mg Tablet] 1 - 2 tab PO TID PRN #15 tab PRN Reason: Promethazine HCl [Phenergan 25 mg Tablet] 25 mg PO Q6H PRN #20 tablet PRN Reason: Forms: Return to Work Referrals: ZAY REED FNP [Primary Care Provider] - Follow up as needed
--- NOTE | 2020-08-31 02:31 | RADIOLOGY REPORT (SQ) ---
Ultrasound of the right upper quadrant of the abdomen: 08/31/2020 1:28 AM CDT Technique: Multiple grayscale color Doppler images of the right upper quadrant of the abdomen were obtained. Comparison: CT of abdomen and pelvis from 05/24/2020 History: 45-year old patient with right upper quadrant abdominal pain. Findings: The visualized portions of the hepatic parenchyma appears diffusely echogenic. There is normal directional flow seen within the main portal vein. The gallbladder is moderately distended without evidence of cholelithiasis or gallbladder wall thickening. [place] and was negative. The common duct measures 4-5 mm. The right kidney measures up to 10.5 cm in length. The right kidney demonstrates normal cortical echogenicity with no evidence to suggest hydronephrosis. The visualized portions of the IVC, abdominal aorta, and pancreatic head appear normal. No free intraperitoneal fluid is seen. Impression: 1. No cholelithiasis is seen. The common duct is within normal limits of size. 2. Hepatic steatosis
[2020-08-31] MEDS ORDERED: OXYCODONE-ACETAMINOPHEN 5-325 MG TABLET PO ONE (02:55)
[2020-08-31] MEDS ORDERED: PROMETHAZINE HCL 25 MG TABLET PO ONE (02:55)
[2020-08-31 03:13] VITALS: BP 114/70
== END 2020-08-31 03:22 | disposition home or self-care (01) ==
LOC: ER 21:24
DX: K85.20 Alcohol induced acute pancreatitis without necrosis or infection (principal); K76.0 Fatty (change of) liver, not elsewhere classified; K50.90 Crohn's disease, unspecified, without complications; K21.9 Gastro-esophageal reflux disease without esophagitis; F32.9 Major depressive disorder, single episode, unspecified; F17.200 Nicotine dependence, unspecified, uncomplicated; Z79.899 Other long term (current) drug therapy; Z88.6 Allergy status to analgesic agent; Z88.5 Allergy status to narcotic agent
CPT/HCPCS: 99285; 96361; 96374; 96375; 36415; 83690; 85025; 80053; 81001; 76705; J2270; J2405; J7030

== ENCOUNTER 2020-09-04 10:36 | Emergency (ER) | payer SELFPAY ==
[2020-09-04] MEDS ORDERED: ONDANSETRON HCL INJ/PF 4 MG/2 ML SDV IV ONE (11:23)
[2020-09-04] MEDS ORDERED: NORMAL SALINE 1000 ML 1,000 ML IV ONE (11:23)
[2020-09-04] MEDS ORDERED: MORPHINE SULFATE 10 MG/ML INJ IV ONE (11:23)
--- NOTE | 2020-09-04 11:27 | ER Document Report ---
ED Medical Screen (RME) - General Chief Complaint: Abdominal Pain Stated Complaint: ABDOMINAL PAIN Time Seen by Provider: 09/04/20 11:19 Primary Care Provider: ZAY REED FNP [Primary Care Provider] - Follow up as needed Mode of Arrival: Ambulatory Information source: Patient Notes: 45-year-old male presented to ED for abdominal pain upper and lower. He states he was diagnosed with pancreatitis when he was seen on Wednesday. He was given some IV pain medications and IV fluids and then sent home with prescription for Percocet to follow-up with primary care doctor. He cannot see his primary care till tomorrow and he has run out of his narcotics. He states he has not drank since last week on Wednesday. He does smoke a pack a day. He does have a history of pancreatitis and Crohn's. He states he is not having any nausea but he is having black tarry stools. He states this is started since he was discharged home. I have ordered blood urine type and screen IV fluids pain medicine and nausea medicine. We will get the pain medicine IV fluids and nausea medicine as soon as he gets in a room. I have greeted and performed a rapid initial assessment of this patient. A comprehensive ED assessment and evaluation of the patient, analysis of test results and completion of medical decision making process will be conducted by an additional ED providers. TRAVEL OUTSIDE OF THE [place] IN LAST 30 DAYS: No - Related Data Allergies/Adverse Reactions: hydrocodone bitartrate [From Vicodin] Allergy (Intermediate, Verified 09/04/20 11:20) Itching Past Medical History - Social History Family history: Reviewed & Not Pertinent - Past Medical History Cardiac Medical History: Denies: Hx Coronary Artery Disease, Hx Heart Attack, Hx Hypertension Pulmonary Medical History: Denies: Hx Asthma, Hx Bronchitis, Hx COPD, Hx Pneumonia Neurological Medical History: Denies: Hx Cerebrovascular Accident, Hx Seizures Renal/ Medical History: Denies: Hx Peritoneal Dialysis GI Medical History: Reports: Hx Crohn's Disease, Hx Gastroesophageal Reflux Disease Musculoskeltal Medical History: Denies Hx Arthritis Psychiatric Medical History: Reports: Hx Depression Past Surgical History: Denies: Hx Pacemaker - Immunizations Immunizations up to date: Yes Hx Diphtheria, Pertussis, Tetanus Vaccination: Yes Physical Exam - Vital signs Vitals: Temp Pulse Resp BP Pulse Ox 98.3 F 136 H 22 H 156/89 H 99 09/04/20 10:52 09/04/20 10:52 09/04/20 10:52 09/04/20 10:52 09/04/20 10:52 Course - Vital Signs Vital signs: Temp Pulse Resp BP Pulse Ox 98.3 F 136 H 22 H 156/89 H 99 09/04/20 10:52 09/04/20 10:52 09/04/20 10:52 09/04/20 10:52 09/04/20 10:52 Doctor's Discharge - Discharge Referrals: ZAY REED FNP [Primary Care Provider] - Follow up as needed
[2020-09-04 12:14] LABS: ABSOLUTE EOSINOPHILS # (AUTO) 0.2 10^3/uL (0.0-0.6); ABSOLUTE LYMPHOCYTES (AUTO) 0.9 10^3/uL (0.5-4.7); ABSOLUTE MONOCYTES (AUTO) 0.8 10^3/uL (0.1-1.4); ABSOLUTE NEUT (AUTO) 8.1 10^3/uL (1.7-8.2); BASOPHILS % (AUTO) 0.4 % (0-2); EOSINOPHILS % (AUTO) 1.6 % (0-6); HEMATOCRIT 46.2 % (37.9-51.0); HEMOGLOBIN 16.1 g/dL (13.5-17.0); LYMPHOCYTES % (AUTO) 8.6 % (13-45); MEAN CORPUSCULAR HEMOGLOBIN 33.6 pg (27.0-33.4); MEAN CORPUSCULAR HGB CONC 34.8 g/dL (32.0-36.0); MEAN CORPUSCULAR VOLUME 97 fl (80-97); MONOCYTES % (AUTO) 8.3 % (3-13); PLATELET COUNT 141 10^3/uL (150-450); RED BLOOD COUNT 4.78 10^6/uL (4.35-5.55); SEGMENTED NEUTROPHILS % (AUTO) 81.1 % (42-78); TOTAL CELLS COUNTED % (AUTO) 100 %
[2020-09-04 12:23] LABS: APPEARANCE,URINE CLEAR; BILIRUBIN,URINE NEGATIVE (NEGATIVE); COLOR,URINE YELLOW; GLUCOSE, URINE 50 mg/dL (NEGATIVE); KETONES,URINE NEGATIVE (NEGATIVE); LEUKOCYTE ESTERASE,URINE NEGATIVE (NEGATIVE); NITRITE,URINE NEGATIVE (NEGATIVE); PROTEIN,URINE NEGATIVE (NEGATIVE); URINE SPECIFIC GRAVITY 1.009; UROBILINOGEN,URINE NEGATIVE mg/dL (<2.0)
--- NOTE | 2020-09-04 12:24 | ER Document Report ---
ED General - General Chief Complaint: Abdominal Pain Stated Complaint: ABDOMINAL PAIN Time Seen by Provider: 09/04/20 11:19 Primary Care Provider: ZAY REED FNP [NURSE PRACTITIONER] - Follow up in 3-5 days Mode of Arrival: Ambulatory Information source: Patient TRAVEL OUTSIDE OF THE [place] IN LAST 30 DAYS: No - HPI Notes: Patient was seen here approximately 4 days ago and diagnosed with pancreatitis. He returns with persistent epigastric pain. He states that now feels slightly worse. It does radiate up into his chest and his back. It is sharp. Is constant. It is also severe. Nothing makes it better or worse particularly. Patient states he is currently out of his pain medication. He also states that his stools are now "dark". He denies previous history of bleeding from his gastrointestinal tract. He does state that he has a history of pancreatitis. He denies that he has had any alcohol since the last visit. - Related Data Allergies/Adverse Reactions: hydrocodone bitartrate [From Vicodin] Allergy (Intermediate, Verified 09/04/20 11:20) Itching Home Medications: omeprazole, velzichol Past Medical History - General Information source: Patient - Social History Smoking Status: Current Every Day Smoker Chew tobacco use (# tins/day): No Frequency of alcohol use: last drink wed/ Drug Abuse: None Family History: Reviewed & Not Pertinent Patient has homicidal ideation: No - Past Medical History Cardiac Medical History: Denies: Hx Coronary Artery Disease, Hx Heart Attack, Hx Hypertension Pulmonary Medical History: Denies: Hx Asthma, Hx Bronchitis, Hx COPD, Hx Pneumonia Neurological Medical History: Denies: Hx Cerebrovascular Accident, Hx Seizures Renal/ Medical History: Denies: Hx Peritoneal Dialysis GI Medical History: Reports: Hx Crohn's Disease, Hx Gastroesophageal Reflux Disease Musculoskeletal Medical History: Denies Hx Arthritis Psychiatric Medical History: Reports: Hx Depression Past Surgical History: Denies: Hx Pacemaker - Immunizations Immunizations up to date: Yes Hx Diphtheria, Pertussis, Tetanus Vaccination: Yes Hx Pneumococcal Vaccination: 11/01/00 Review of Systems - Review of Systems Constitutional: denies: Chills, Fever Cardiovascular: denies: Chest pain, Palpitations Respiratory: denies: Cough, Short of breath -: Yes All other systems reviewed and negative Physical Exam - Vital signs Vitals: Temp Pulse Resp BP Pulse Ox 98.3 F 136 H 22 H 156/89 H 99 09/04/20 10:52 09/04/20 10:52 09/04/20 10:52 09/04/20 10:52 09/04/20 10:52 Interpretation: Normal - General General appearance: Appears well, Alert - HEENT Head: Normocephalic, Atraumatic Eyes: Normal Pupils: PERRL - Respiratory Respiratory status: No respiratory distress Chest status: Nontender Breath sounds: Normal Chest palpation: Normal - Cardiovascular Rhythm: Tachycardia Heart sounds: Normal auscultation Murmur: No - Abdominal Inspection: Normal Distension: No distension Bowel sounds: Normal Tenderness: Tender - Moderate diffuse palpation Organomegaly: No organomegaly - Back Back: Normal, Nontender - Extremities General upper extremity: Normal inspection, Nontender, Normal color, Normal ROM, Normal temperature General lower extremity: Normal inspection, Nontender, Normal color, Normal ROM, Normal temperature, Normal weight bearing. No: Gelacio's sign - Neurological Neuro grossly intact: Yes Cognition: Normal Orientation: AAOx4 [place] Coma Scale Eye Opening: Spontaneous [place] Coma Scale Verbal: Oriented [place] Coma Scale Motor: Obeys Commands [place] Coma Scale Total: 15 Speech: Normal Motor strength normal: LUE, RUE, LLE, RLE Sensory: Normal - Psychological Associated symptoms: Normal affect, Normal mood - Skin Skin Temperature: Warm Skin Moisture: Dry Skin Color: Normal Course - Re-evaluation Re-evalutation: 09/04/20 16:47 Patient presents with a history of pancreatitis. States he is having worsening pain as well as some dark tarry stools. Hemoglobin at this time is stable. Vital signs are stable. I am going to refer the patient to gastroenterology. Patient also states he is out of his pain medication I will discharge him home with some more pain medication. - Vital Signs Vital signs: Temp Pulse Resp BP Pulse Ox 98.3 F 136 H 22 H 156/89 H 99 09/04/20 10:52 09/04/20 10:52 09/04/20 10:52 09/04/20 10:52 09/04/20 10:52 - Laboratory Result Diagrams: 09/04/20 11:46 09/04/20 11:46 Laboratory results interpreted by me: 09/04/20 09/04/20 09/04/20 11:46 11:46 11:46 MCH 33.6 H Plt Count 141 L Lymph % (Auto) 8.6 L Seg Neutrophils % 81.1 H Sodium 133.0 L BUN 5 L Lipase 696.1 H Urine Glucose (UA) 50 H Discharge - Discharge Clinical Impression: Pancreatitis Qualifiers: Chronicity: acute Pancreatitis type: alcohol induced Acute pancreatitis complication: no infection or necrosis Qualified Code(s): K85.20 - Alcohol induced acute pancreatitis without necrosis or infection Condition: Stable Disposition: HOME, SELF-CARE Instructions: Pancreatitis ([facility]) Prescriptions: Oxycodone HCl/Acetaminophen [Percocet 5-325 mg Tablet] 1 - 2 tab PO Q4H PRN #15 tablet PRN Reason: Ondansetron [Zofran Odt 4 mg Tablet] 1 - 2 tab PO Q4H PRN #15 tab.rapdis PRN Reason: For Nausea/Vomiting Forms: Return to Work Referrals: ZAY REED, [employer] [NURSE PRACTITIONER] - Follow up in 3-5 days
[2020-09-04 12:31] LABS: ALBUMIN 3.5 g/dL (3.5-5.0); ALKALINE PHOSPHATASE 104 U/L (38-126); AMYLASE 61 U/L (30-110); ANION GAP 9 (5-19); ASPARTATE AMINO TRANSFERASE 36 U/L (17-59); BILIRUBIN,DIRECT 0.4 mg/dL (0.0-0.4); BILIRUBIN,TOTAL 0.5 mg/dL (0.2-1.3); BLOOD UREA NITROGEN 5 mg/dL (7-20); CALCIUM 9.5 mg/dL (8.4-10.2); CARBON DIOXIDE 24 mmol/L (22-30); CHLORIDE 100 mmol/L (98-107); GLUCOSE 92 mg/dL (75-110); POTASSIUM 4.1 mmol/L (3.6-5.0); TOTAL PROTEIN 6.5 g/dL (6.3-8.2)
[2020-09-04 12:37] LABS: ALCOHOL < 10 mg/dL (NONE DETECTED)
[2020-09-04 12:44] LABS: URINE AMPHETAMINES SCREEN NEGATIVE; URINE BARBITURATES SCREEN NEGATIVE; URINE BENZODIAZEPINES SCREEN NEGATIVE; URINE COCAINE SCREEN NEGATIVE; URINE MARIJUANA (THC) SCREEN NEGATIVE; URINE METHADONE SCREEN NEGATIVE; URINE PHENCYCLIDINE SCREEN NEGATIVE
--- NOTE | 2020-09-04 15:42 | RADIOLOGY REPORT (SQ) ---
EXAM DESCRIPTION: CT ABD/PELVIS WITH IV ONLY IMAGES COMPLETED DATE/TIME: 09/04/2020 2:24 pm REASON FOR STUDY: abd pain COMPARISON: 05/24/2020. TECHNIQUE: CT scan of the abdomen and pelvis performed using helical scanning technique with dynamic intravenous contrast injection. No oral contrast. Images reviewed with lung, soft tissue, and bone windows. Reconstructed coronal and sagittal MPR images reviewed. Delayed images for evaluation of the urinary system also acquired. All images stored on PACS. All CT scanners at this facility use dose modulation, iterative reconstruction, and/or weight based d osing when appropriate to reduce radiation dose to as low as reasonably achievable (ALARA). [facility]: Dose Right [facility]: CareDose [facility]: Dose Right [facility]: Teradose 4D [facility]: Kid Bunch CONTRAST TYPE AND DOSE: 64 mL Omnipaque 350- low osmolar. RENAL FUNCTION: BUN 5 creatinine 0.57. RADIATION DOSE: . LIMITATIONS: None. FINDINGS: LOWER CHEST: No significant findings. No nodules or infiltrates. LIVER: Normal size. No masses. Diffuse fatty infiltration. No dilated ducts. SPLEEN: Normal size. No focal lesions. PANCREAS: No masses. No significant calcifications. Mild blurring in the peripancreatic tissues, par ticularly around the pancreatic head and pancreatic tail. Pancreatic duct not dilated. GALLBLADDER: No identified stones by CT criteria. No inflammatory changes to suggest cholecystitis. ADRENAL GLANDS: No significant masses or asymmetry. RIGHT KIDNEY AND URETER: No solid masses. No significant calcifications. No hydronephrosis or hyd roureter. LEFT KIDNEY AND URETER: No solid masses. No significant calcifications. No hydronephrosis or hydr oureter. AORTA AND VESSELS: No aneurysm. No dissection. Renal arteries, SMA, celiac without stenosis. RETROPERITONEUM: No retroperitoneal adenopathy, hemorrhage or masses. BOWEL AND PERITONEAL CAVITY: No masses or inflammatory changes. No free fluid or peritoneal masses. APPENDIX: Normal. PELVIS: No mass. No free fluid. Normal bladder. ABDOMINAL WALL: No masses. No hernias. BONES: No significant or acute findings. OTHER: No other significant finding. IMPRESSION: 1. PROBABLE EARLY PANCREATITIS. NO ABNORMAL FOCAL FLUID COLLECTIONS. 2. FATTY INFILTRATION OF THE LIVER. 3. NO OTHER SIGNIFICANT OR ACUTE FINDING IN THE ABDOMEN OR PELVIS ON CT SCAN WITH IV CONTRAST. TECHNICAL DOCUMENTATION: JOB ID: [id number] Quality ID # [id number]: Final reports with documentation of one or more dose reduction techniques (e.g., Au tomated exposure control, adjustment of the mA and/or kV according to patient size, use of iterative reconstruction technique) 2010 [employer]- All Rights Reserved Reading location - IP/workstation name: [email or web address]
[2020-09-04 17:24] VITALS: BP 127/84
--- NOTE | 2020-09-04 18:58 | EKG REPORT ---
SEVERITY:- OTHERWISE NORMAL ECG - SINUS TACHYCARDIA : Confirmed by: Brennen Muniz MD 04-Sep-2020 18:58:07
== END 2020-09-04 17:22 | disposition home or self-care (01) ==
LOC: ER 10:36
DX: K85.20 Alcohol induced acute pancreatitis without necrosis or infection (principal); K21.9 Gastro-esophageal reflux disease without esophagitis; K76.0 Fatty (change of) liver, not elsewhere classified; R19.5 Other fecal abnormalities; R10.13 Epigastric pain; R10.817 Generalized abdominal tenderness; F17.200 Nicotine dependence, unspecified, uncomplicated; Z79.899 Other long term (current) drug therapy; Z88.6 Allergy status to analgesic agent; Z88.5 Allergy status to narcotic agent
CPT/HCPCS: 93005; 99285; 96361; 96374; 96375; 86900; 86901; 36415; 87086; 86850; 80307 ×2; 82150; 83690; 85025; 80053; 81001; 84484; 74177; 93010; J2270; J2405; J7030

== ENCOUNTER 2020-09-16 15:19 | Emergency (ER) | payer SELFPAY ==
--- NOTE | 2020-09-16 16:16 | ER Document Report ---
ED Medical Screen (RME) - General Chief Complaint: Abdominal Pain Stated Complaint: ABDOMINAL PAIN Time Seen by Provider: 09/16/20 16:13 Mode of Arrival: Ambulatory Information source: Patient Notes: 45-year-old male presented to ED for complaint of upper abdominal pain. He does have a history of pancreatitis Crohn's and hep C. He states he has not been to [place] to get his patient for his hep C. He states it has been hurting since last time he was here but now he is vomiting and having bloody stools. He is alert oriented respirations regular nonlabored speaking in full sentences. He is bent over while in the emergency room. Will treat him with Zofran ODT and blood urine and stool samples. He will be seen by another provider. His abdomen is tender to palpation. Bowel sounds are present I have greeted and performed a rapid initial assessment of this patient. A comprehensive ED assessment and evaluation of the patient, analysis of test results and completion of medical decision making process will be conducted by an additional ED providers. TRAVEL OUTSIDE OF THE [place] IN LAST 30 DAYS: No - Related Data Allergies/Adverse Reactions: hydrocodone bitartrate [From Vicodin] Allergy (Intermediate, Verified 09/04/20 11:20) Itching Past Medical History - Social History Family history: Reviewed & Not Pertinent - Past Medical History Cardiac Medical History: Denies: Hx Coronary Artery Disease, Hx Heart Attack, Hx Hypertension Pulmonary Medical History: Denies: Hx Asthma, Hx Bronchitis, Hx COPD, Hx Pneumonia Neurological Medical History: Denies: Hx Cerebrovascular Accident, Hx Seizures Renal/ Medical History: Denies: Hx Peritoneal Dialysis GI Medical History: Reports: Hx Crohn's Disease, Hx Gastroesophageal Reflux Disease Musculoskeltal Medical History: Denies Hx Arthritis Psychiatric Medical History: Reports: Hx Depression Past Surgical History: Denies: Hx Pacemaker - Immunizations Immunizations up to date: Yes Hx Diphtheria, Pertussis, Tetanus Vaccination: Yes Physical Exam - Vital signs Vitals: Temp Pulse Resp BP Pulse Ox 98.2 F 87 18 153/96 H 100 09/16/20 16:07 09/16/20 16:07 09/16/20 16:07 09/16/20 16:07 09/16/20 16:07 Course - Vital Signs Vital signs: Temp Pulse Resp BP Pulse Ox 98.2 F 87 18 153/96 H 100 09/16/20 16:07 09/16/20 16:07 09/16/20 16:07 09/16/20 16:07 09/16/20 16:07
[2020-09-16 17:39] LABS: ABSOLUTE BASOPHILS # (AUTO) 0.1 10^3/uL (0.0-0.2); ABSOLUTE EOSINOPHILS # (AUTO) 0.2 10^3/uL (0.0-0.6); ABSOLUTE LYMPHOCYTES (AUTO) 1.2 10^3/uL (0.5-4.7); ABSOLUTE MONOCYTES (AUTO) 1.1 10^3/uL (0.1-1.4); ABSOLUTE NEUT (AUTO) 11.5 10^3/uL (1.7-8.2); BASOPHILS % (AUTO) 0.7 % (0-2); EOSINOPHILS % (AUTO) 1.2 % (0-6); HEMATOCRIT 47.8 % (37.9-51.0); LYMPHOCYTES % (AUTO) 8.7 % (13-45); MEAN CORPUSCULAR HEMOGLOBIN 32.9 pg (27.0-33.4); MEAN CORPUSCULAR HGB CONC 33.5 g/dL (32.0-36.0); MEAN CORPUSCULAR VOLUME 98 fl (80-97); MONOCYTES % (AUTO) 7.5 % (3-13); PLATELET COUNT 249 10^3/uL (150-450); RED BLOOD COUNT 4.88 10^6/uL (4.35-5.55); RED CELL DISTRIBUTION WIDTH 14.2 % (11.5-14.0); SEGMENTED NEUTROPHILS % (AUTO) 81.9 % (42-78); TOTAL CELLS COUNTED % (AUTO) 100 %; WHITE BLOOD COUNT 14.1 10^3/uL (4.0-10.5)
[2020-09-16 17:58] LABS: ALBUMIN 3.9 g/dL (3.5-5.0); ALKALINE PHOSPHATASE 113 U/L (38-126); ANION GAP 10 (5-19); APPEARANCE,URINE CLEAR; ASPARTATE AMINO TRANSFERASE 405 U/L (17-59); BILIRUBIN,DIRECT 0.6 mg/dL (0.0-0.4); BILIRUBIN,TOTAL 1.3 mg/dL (0.2-1.3); BILIRUBIN,URINE NEGATIVE (NEGATIVE); BLOOD UREA NITROGEN 6 mg/dL (7-20); CALCIUM 9.6 mg/dL (8.4-10.2); CARBON DIOXIDE 19 mmol/L (22-30); CHLORIDE 106 mmol/L (98-107); COLOR,URINE YELLOW; GLUCOSE 91 mg/dL (75-110); GLUCOSE, URINE NEGATIVE (NEGATIVE); KETONES,URINE NEGATIVE (NEGATIVE); LEUKOCYTE ESTERASE,URINE NEGATIVE (NEGATIVE); NITRITE,URINE NEGATIVE (NEGATIVE); POTASSIUM 4.3 mmol/L (3.6-5.0); PROTEIN,URINE NEGATIVE (NEGATIVE); URINE SPECIFIC GRAVITY 1.014; UROBILINOGEN,URINE NEGATIVE mg/dL (<2.0)
[2020-09-17] MEDS ORDERED: ONDANSETRON HCL INJ/PF 4 MG/2 ML SDV IV ONE (00:16)
[2020-09-17] MEDS ORDERED: RINGERS SOLUTION,LACTATED 1,000 ML IV ONE (00:16)
[2020-09-17] MEDS ORDERED: MORPHINE SULFATE 10 MG/ML INJ IV ONE (00:16)
--- NOTE | 2020-09-17 00:18 | ER Document Report ---
ED GI/ - General Chief Complaint: Abdominal Pain Stated Complaint: ABDOMINAL PAIN Time Seen by Provider: 09/16/20 16:13 Primary Care Provider: KESHAWN SÁNCHEZ MD [ACTIVE STAFF] - 09/19/20 Mode of Arrival: Ambulatory Notes: Patient is a 45-year-old male comes emergency department for chief complaint of upper and lower abdominal pain. He states that he also started to have some bright blood in his bowel movements. He states he vomited twice, he states this was clear and nonbloody. He states he has had intermittent abdominal pain for a while but worsened today. He denies fever/chills. He denies chest pain or flank pain. He denies any surgeries, denies history of bowel obstructions. He follows with Dr. Sánchez, gastroenterology for Crohn's disease and states he is compliant with his medication, he also is a history of hepatitis C and is pending referral and treatment. He smokes, denies recent alcohol use but admits to previous heavy alcohol abuse. TRAVEL OUTSIDE OF THE [place] IN LAST 30 DAYS: No - Related Data Allergies/Adverse Reactions: hydrocodone bitartrate [From Vicodin] Allergy (Intermediate, Verified 09/04/20 11:20) Itching Past Medical History - General Information source: Patient - Social History Smoking Status: Current Every Day Smoker Frequency of alcohol use: Former heavy Drug Abuse: None Lives with: Family Family History: Reviewed & Not Pertinent - Past Medical History Cardiac Medical History: Denies: Hx Coronary Artery Disease, Hx Heart Attack, Hx Hypertension Pulmonary Medical History: Denies: Hx Asthma, Hx Bronchitis, Hx COPD, Hx Pneumonia Neurological Medical History: Denies: Hx Cerebrovascular Accident, Hx Seizures Renal/ Medical History: Denies: Hx Peritoneal Dialysis GI Medical History: Reports: Hx Crohn's Disease, Hx Gastroesophageal Reflux Disease Musculoskeletal Medical History: Denies Hx Arthritis Psychiatric Medical History: Reports: Hx Depression Past Surgical History: Denies: Hx Pacemaker - Immunizations Immunizations up to date: Yes Hx Diphtheria, Pertussis, Tetanus Vaccination: Yes Hx Pneumococcal Vaccination: 11/01/00 Review of Systems - Review of Systems Constitutional: No symptoms reported EENT: No symptoms reported Cardiovascular: No symptoms reported Respiratory: No symptoms reported Gastrointestinal: See HPI Genitourinary: No symptoms reported Male Genitourinary: No symptoms reported Musculoskeletal: No symptoms reported Skin: No symptoms reported Hematologic/Lymphatic: No symptoms reported Neurological/Psychological: No symptoms reported Physical Exam - Vital signs Vitals: Temp Pulse Resp BP Pulse Ox 98.2 F 87 18 153/96 H 100 09/16/20 16:07 09/16/20 16:07 09/16/20 16:07 09/16/20 16:07 09/16/20 16:07 - Notes Notes: GENERAL: Patient appears somewhat uncomfortable but does not in severe distress. Disheveled HEAD: Normocephalic, atraumatic. EYES: Pupils equal, round, and reactive to light. Extraocular movements intact. ENT: Oral mucosa moist, tongue midline. Oropharynx unremarkable. Airway patent. NECK: Full range of motion. Supple. Trachea midline. No lymphadenopathy. LUNGS: Clear to auscultation bilaterally, no wheezes, rales, or rhonchi. No respiratory distress. Non-tender chest wall. HEART: Regular rate and rhythm. No murmur ABDOMEN: Tenderness with wincing in the mid upper abdomen, no specific area of guarding, no rigidity or distention. Bowel sounds present. EXTREMITIES: Moves all 4 extremities spontaneously. No edema, normal radial and dorsalis pedis pulses bilaterally. No cyanosis. BACK: no cervical, thoracic, lumbar midline tenderness. No saddle anesthesia, normal distal neurovascular exam. Moves all extremities in full range of motion. NEUROLOGICAL: Alert and oriented x3. Normal speech. Cranial nerves II through XII grossly intact. Strength 5/5 in all extremities. PSYCH: Normal affect, normal mood. SKIN: Dustin complexion, otherwise unremarkable Course - Re-evaluation Re-evalutation: Patient has generalized mid to upper abdominal tenderness. He is somewhat uncomfortable but not in severe distress. Vital signs unremarkable. CBC shows mild leukocytosis at 14 with elevation of neutrophils but no bandemia. Chemistry nonspecific with bicarbonate 19, borderline LFTs, lipase is in the 500s which is improved from the last time I saw the patient. I discussed with wilfrido manjarrez. He still states that he is having significant pain, he will be medicated, CAT scan will be performed because of his history of Crohn's, leukocytosis, pancreatitis. Patient gave a stool sample earlier, that showed some white blood cells and is pending, I called the lab and they threw this away. Patient given another sample and this was tested negative for blood, did not appear bloody, un fortunately we were not able to tested further because of the consistency and patient was not able to give any more. On reevaluation symptoms resolved. Patient hungry and requesting p.o. CAT scan shows improving pancreatitis, some dilatation of the small bowel at the duodenum ileus versus obstruction. Patient tolerated p.o. by eating Jell-O, he did this without any difficulty or symptoms afterwards. Patient not appear to be obstructed. I discussed with patient. Patient states he has been avoiding alcohol, he does not smell of alcohol, patient is requesting discharge. I did discuss treatment for ileus and pancreatitis, I discussed expectations and return precautions. Patient agrees to call his sales property manager tomorrow for close follow-up and additional management, he is currently seeing and being managed by Dr. Sánchez. Discussed return precautions in detail, patient states understanding and agreement. Stable and well-appearing at time of discharge. - Vital Signs Vital signs: Temp Pulse Resp BP Pulse Ox 97.9 F 82 18 146/87 H 99 09/17/20 03:35 09/17/20 03:35 09/17/20 03:35 09/17/20 03:35 09/17/20 03:35 - Laboratory Result Diagrams: 09/16/20 17:11 09/16/20 17:11 Laboratory results interpreted by me: 09/16/20 09/16/20 09/16/20 17:11 17:11 22:10 WBC 14.1 H MCV 98 H RDW 14.2 H Lymph % (Auto) 8.7 L Absolute Neuts (auto) 11.5 H Seg Neutrophils % 81.9 H Sodium 135.1 L Carbon Dioxide 19 L BUN 6 L Direct Bilirubin 0.6 H AST 405 H ALT 171 H Lipase 542.0 H Stool for White Cells RARE H Discharge - Discharge Clinical Impression: Pancreatitis Qualifiers: Chronicity: acute Pancreatitis type: alcohol induced Acute pancreatitis complication: unspecified Qualified Code(s): K85.20 - Alcohol induced acute pancreatitis without necrosis or infection Abdominal pain Qualifiers: Abdominal location: generalized Qualified Code(s): R10.84 - Generalized abdominal pain Condition: Stable Disposition: HOME, SELF-CARE Additional Instructions: Your CAT scan shows improving pancreatitis and an ileus as we discussed. I recommend clear fluid diet, pain and nausea medication if needed, stool softener as prescribed, and close follow-up with your sales property manager Dr. Sánchez. Your stool was negative for blood and has been cultured for additional testing. Return if you worsen including returned/severe worsening pain, fever, uncontrolled vomiting, or any other concerning or worsening symptoms. Prescriptions: Docusate Sodium [Colace 100 mg Capsule] 100 mg PO ASDIR PRN #30 capsule PRN Reason: Morphine Sulfate [Morphine Ir 15 Mg Tablet] 15 mg PO TID PRN #12 tablet PRN Reason: Promethazine HCl [Phenergan 25 mg Tablet] 25 mg PO Q6H PRN #15 tablet PRN Reason: Referrals: KESHAWN SÁNCHEZ MD [ACTIVE STAFF] - 09/19/20
--- NOTE | 2020-09-17 02:24 | RADIOLOGY REPORT (SQ) ---
CT abdomen and pelvis with contrast on 09/17/2020 at 1:53 AM CLINICAL INDICATION: Leukocytosis, generalized abdominal pain TECHNIQUE: Multiple axial images are obtained throughout the abdomen and pelvis following the administration of IV contrast, 63 mL of Omnipaque 350contrast was administered intravenously without complication. This exam was performed according to our departmental dose-optimization program, which includes automated exposure control, adjustment of the mA and/or kV according to patient size and/or use of iterative reconstruction technique. Total DLP is 501.82 mGy*cm. COMPARISON: 09/04/2020 FINDINGS: Abdomen: The lung bases are clear. There remains edema and stranding around the pancreatic head suggesting mild residual changes of acute pancreatitis but this does appear improved when compared with the prior study. There is new gaseous and fluid distention of the second and proximal third portion of the duodenum. The appearance could be related to a focal duodenal ileus versus partial obstruction related to the adjacent edema of the pancreatic head. The duodenum is not narrowed by the space between the aorta and SMA to suggest SMA syndrome. There is fatty infiltration of the liver. The solid abdominal organs are otherwise unremarkable. There is no abdominal adenopathy. There is no free fluid or free air within the abdomen. The abdominal portion of the GI tract is otherwise unremarkable. Pelvis: There is no free fluid in the pelvis. There is no pelvic adenopathy. Pelvic portion of the GI tract including the appendix is unremarkable. Old right rib fracture is noted. Left-sided pars defect is noted at L5. No acute bony abnormality is noted. IMPRESSION: 1. New dilatation of the second and proximal third portion of the duodenum favored to be related to focal duodenal ileus or partial obstruction related to the adjacent pancreatitis. 2. Improved changes but persistent evidence of pancreatitis involving the pancreatic head, please correlate with laboratory values. 3. Fatty infiltration of the liver.
[2020-09-17 03:45] VITALS: BP 146/87
== END 2020-09-17 03:44 | disposition home or self-care (01) ==
LOC: ER 15:19
DX: K85.20 Alcohol induced acute pancreatitis without necrosis or infection (principal); K76.0 Fatty (change of) liver, not elsewhere classified; K50.90 Crohn's disease, unspecified, without complications; K59.89 Other specified functional intestinal disorders; K92.1 Melena; R10.84 Generalized abdominal pain; R11.10 Vomiting, unspecified; F17.200 Nicotine dependence, unspecified, uncomplicated; Z88.6 Allergy status to analgesic agent; Z88.5 Allergy status to narcotic agent
CPT/HCPCS: 99285; 96361; 96374; 96375; 36415; 87045; 87086; 89055; 87205; 83690; 85025; 82270; 80053; 81001; 74177; J2270; J2405; J7120

== ENCOUNTER 2020-09-25 16:01 | Inpatient (IN) | payer SELFPAY ==
[2020-09-25] MEDS ORDERED: PANTOPRAZOLE SODIUM 40 MG VIAL IV ONE (16:50)
[2020-09-25] MEDS ORDERED: NORMAL SALINE 1000 ML 1,000 ML IV ONE (16:51)
--- NOTE | 2020-09-25 16:58 | ER Document Report ---
ED Medical Screen (RME) - General Chief Complaint: Epigastric Pain Stated Complaint: ABDOMINAL PAIN Time Seen by Provider: 09/25/20 16:36 Mode of Arrival: Ambulatory Information source: Patient Notes: Patient is a 45-year-old male complex emergency room complaining of increasing abdominal pain with nausea vomiting diarrhea. Patient was just seen here on September 17, 2020 same presentation. Was found to have a improving pancreatitis but had a questionable ileus. Patient was given an oral challenge kept Jell-O down and wanted to be discharged so he was. Currently patient is seeing Dr. Krishnan for his chronic pancreatitis and he went to him yesterday with this pain the doctor sent him or informed him he needed to have some blood work done at the lab and Covid tested so that he could do an upper and lower endoscopy on the patient but patient has to wait to [facility] and they are closed today. Patient states he cannot wait through the weekend he will they reopen with this discomfort and pain. Patient also states that when vomiting he is vomiting up black vomitus as well as having black stools. He also states that they told him not to take any anti-inflammatories like ibuprofen or Advil so he is not taking that but he is taken over a bottle and a half of aspirin in the past week and a half because of pain. Patient states he is unable to eat anything or drink anything the past couple days he throws it back up. Physical examination: Patient is a frail-appearing disheveled 45-year-old male who appears very uncomfortable. Cardiac: Patient displaying a regular rate and rhythm on monitor of 85 bpm no murmurs were auscultated patient's blood pressure was 149/103. Lungs: Bilateral breath sounds decreased throughout faint rhonchi scattered thr oughout all lung parson seemed to clear and cough. Abdomen: In the sitting position patient has doubled over bowel sounds are silent patient has diffuse abdominal tenderness to light palpation and mild percussion. You know patient had a CT done on the that showed improving pancreatitis it also had mentioned the possibility of an ileus versus S early SBO so I am repeating the CT scan to make sure this is not gone complete SBO. I have greeted and performed a rapid initial assessment of this patient. A comprehensive ED assessment and evaluation of the patient, analysis of test results and completion of the medical decision making process will be conducted by additional ED providers. Dictation of this chart was performed using voice recognition software; therefore, there may be some unintended grammatical errors. TRAVEL OUTSIDE OF THE [place] IN LAST 30 DAYS: No - Related Data Allergies/Adverse Reactions: hydrocodone bitartrate [From Vicodin] Allergy (Intermediate, Verified 09/25/20 16:45) Itching Home Medications: omeprazole, crohns med Past Medical History - Social History Chew tobacco use (# tins/day): No Frequency of alcohol use: None Drug Abuse: None Family history: Reviewed & Not Pertinent - Past Medical History Cardiac Medical History: Denies: Hx Coronary Artery Disease, Hx Heart Attack, Hx Hypertension Pulmonary Medical History: Denies: Hx Asthma, Hx Bronchitis, Hx COPD, Hx Pneumonia Neurological Medical History: Denies: Hx Cerebrovascular Accident, Hx Seizures Renal/ Medical History: Denies: Hx Peritoneal Dialysis GI Medical History: Reports: Hx Crohn's Disease, Hx Gastroesophageal Reflux Disease Musculoskeltal Medical History: Denies Hx Arthritis Psychiatric Medical History: Reports: Hx Depression Past Surgical History: Denies: Hx Pacemaker - Immunizations Immunizations up to date: Yes Hx Diphtheria, Pertussis, Tetanus Vaccination: Yes Physical Exam - Vital signs Vitals: Temp Pulse Resp BP Pulse Ox 98.2 F 85 22 H 149/103 H 100 09/25/20 16:16 09/25/20 16:16 09/25/20 16:16 09/25/20 16:16 09/25/20 16:16 Course - Vital Signs Vital signs: Temp Pulse Resp BP Pulse Ox 98.2 F 85 22 H 149/103 H 100 09/25/20 16:16 09/25/20 16:16 09/25/20 16:16 09/25/20 16:16 09/25/20 16:16
[2020-09-25 17:43] LABS: ABSOLUTE BASOPHILS # (AUTO) 0.1 10^3/uL (0.0-0.2); ABSOLUTE EOSINOPHILS # (AUTO) 0.2 10^3/uL (0.0-0.6); ABSOLUTE LYMPHOCYTES (AUTO) 1.3 10^3/uL (0.5-4.7); ABSOLUTE MONOCYTES (AUTO) 0.7 10^3/uL (0.1-1.4); ABSOLUTE NEUT (AUTO) 7.3 10^3/uL (1.7-8.2); BASOPHILS % (AUTO) 0.7 % (0-2); EOSINOPHILS % (AUTO) 1.9 % (0-6); HEMATOCRIT 44.7 % (37.9-51.0); HEMOGLOBIN 15.2 g/dL (13.5-17.0); MEAN CORPUSCULAR HEMOGLOBIN 32.5 pg (27.0-33.4); MEAN CORPUSCULAR VOLUME 96 fl (80-97); MONOCYTES % (AUTO) 7.1 % (3-13); PLATELET COUNT 259 10^3/uL (150-450); RED BLOOD COUNT 4.68 10^6/uL (4.35-5.55); RED CELL DISTRIBUTION WIDTH 13.8 % (11.5-14.0); SEGMENTED NEUTROPHILS % (AUTO) 76.3 % (42-78); TOTAL CELLS COUNTED % (AUTO) 100 %; WHITE BLOOD COUNT 9.5 10^3/uL (4.0-10.5)
--- NOTE | 2020-09-25 17:49 | RADIOLOGY REPORT (SQ) ---
EXAM DESCRIPTION: CT ABD/PELVIS NO ORAL OR IV IMAGES COMPLETED DATE/TIME: 09/25/2020 5:27 pm REASON FOR STUDY: Abdominal pain/had ct . pain worse COMPARISON: CT of the abdomen and pelvis with contrast from 09/17/2020. TECHNIQUE: CT scan of the abdomen and pelvis performed without intravenous or oral contrast. Images reviewed with lung, soft tissue, and bone windows. Reconstructed coronal and sagittal MPR images revi ewed. All images stored on PACS. All CT scanners at this facility use dose modulation, iterative reconstruction, and/or weight based d osing when appropriate to reduce radiation dose to as low as reasonably achievable (ALARA). [facility]: Dose Right [facility]: CareDose [facility]: Dose Right [facility]: Teradose 4D [facility]: [employer] RADIATION DOSE: CT Rad equipment meets quality standard of care and radiation dose reduction techniq ues were employed. CTDIvol: 4.8 mGy. DLP: 242 mGy-cm. LIMITATIONS: None. FINDINGS: LOWER CHEST: No acute abnormality. NON-CONTRASTED LIVER, SPLEEN, ADRENALS: Evaluation is limited by the absence of intravenous contrast. There is no evidence hepatic steatosis. The spleen is normal in size. PANCREAS: Evaluation is limited due to the absence of intravenous contrast. There is effacement of t he normal fat around the pancreatic head and uncinate process. The degree of distention of the 2nd a nd 3rd portions of the duodenum has decreased compared to the CT from 09/17/2020, however the degree of bowel wall thickening and surrounding inflammation involving the 2nd portion of the duodenum appea rs to have increased. There is no discrete peripancreatic fluid collection. GALLBLADDER: No acute gross abnormality of the pancreas. RIGHT KIDNEY AND URETER: Evaluation is limited by the absence of intravenous contrast. There is no h ydronephrosis, nephrolithiasis, hydroureter or ureterolithiasis. LEFT KIDNEY AND URETER: Evaluation is limited by the absence of intravenous contrast. There is no hy dronephrosis, nephrolithiasis, hydroureter or ureterolithiasis. AORTA AND RETROPERITONEUM: No aneurysm of the abdominal aorta. No retroperitoneal adenopathy, hemorr avni or mass. BOWEL AND PERITONEAL CAVITY: The stomach is distended. APPENDIX: Unable to identify the appendix. There is no pericecal inflammation. PELVIS, BLADDER, AND ABDOMINAL WALL:No acute abnormality. BONES: Chronic fracture of the posterior left 11th rib. OTHER: No other findings. IMPRESSION: Evaluation is limited by the absence of intravenous contrast. There is effacement of the normal fat around the pancreatic head and uncinate process. The degree of distention of the 2nd and 3rd portions of the duodenum has decreased compared to the CT from 09/17/2020, however the degree of bowel wall thickening and surrounding inflammation involving the 2nd portion of the duodenum appears to have increased. The duodenal findings could be secondary to the previously described pancreatitis . COMMENT: Quality ID # [id number]: Final reports with documentation of one or more dose reduction techniques (e.g., Automated exposure control, adjustment of the mA and/or kV according to patient size, use of iterative reconstruction technique) TECHNICAL DOCUMENTATION: JOB ID: [id number] 2010 [employer]- All Rights Reserved Reading location - IP/workstation name: [email or web address]
[2020-09-25 17:53] LABS: PROTHROMBIN TIME 12.4 SEC (11.4-15.4)
[2020-09-25 17:54] LABS: PARTIAL THROMBOPLASTIN TIME 35.4 SEC (23.5-35.8)
[2020-09-25 17:59] LABS: ALBUMIN 4.1 g/dL (3.5-5.0); ALKALINE PHOSPHATASE 98 U/L (38-126); ANION GAP 12 (5-19); ASPARTATE AMINO TRANSFERASE 30 U/L (17-59); BILIRUBIN,DIRECT 0.2 mg/dL (0.0-0.4); BILIRUBIN,TOTAL 0.5 mg/dL (0.2-1.3); BLOOD UREA NITROGEN 7 mg/dL (7-20); CALCIUM 9.4 mg/dL (8.4-10.2); CARBON DIOXIDE 19 mmol/L (22-30); CHLORIDE 104 mmol/L (98-107); GLUCOSE 84 mg/dL (75-110); POTASSIUM 3.1 mmol/L (3.6-5.0); SALICYLATE < 1.0 mg/dL (2.0-20.0); TOTAL PROTEIN 7.4 g/dL (6.3-8.2)
--- NOTE | 2020-09-25 18:02 | ER Document Report ---
ED General - General Chief Complaint: Epigastric Pain Stated Complaint: ABDOMINAL PAIN Time Seen by Provider: 09/25/20 16:36 Mode of Arrival: Ambulatory Notes: Patient presents to the ER for evaluation of epigastric pain radiating into the left upper quadrant with associated nausea, vomiting, diarrhea that has been wo rsening over the last several days. The patient has had some symptomatology for approximately 2 weeks. He does have a history of Crohn's disease, pancreatitis, hepatitis C. He has had no treatment for the hepatitis. He is scheduled to have an upper GI after the holiday by Dr. Ho. The patient has been an alcoholic in the past but denies use in approximately the last month. He denies fever. He denies cough or congestion. He denies shortness of breath or chest pain. The patient states he does have an appetite but eating causes increased severity of symptoms. Nursing notes reviewed and past medical, social, and family histories reviewed and validated. TRAVEL OUTSIDE OF THE [place] IN LAST 30 DAYS: No - Related Data Allergies/Adverse Reactions: hydrocodone bitartrate [From Vicodin] Allergy (Intermediate, Verified 09/25/20 16:45) Itching Home Medications: omeprazole, crohns med Past Medical History - General Information source: Patient - Social History Smoking Status: Current Some Day Smoker Cigarette use (# per day): Yes - 20 Chew tobacco use (# tins/day): No Smoking Education Provided: Yes Frequency of alcohol use: Heavy Drug Abuse: None Lives with: Alone Family History: Reviewed & Not Pertinent Patient has suicidal ideation: No Patient has homicidal ideation: No - Past Medical History Cardiac Medical History: Denies: Hx Coronary Artery Disease, Hx Heart Attack, Hx Hypertension Pulmonary Medical History: Denies: Hx Asthma, Hx Bronchitis, Hx COPD, Hx Pneumonia EENT Medical History: Reports: None Neurological Medical History: Denies: Hx Cerebrovascular Accident, Hx Seizures Renal/ Medical History: Denies: Hx Peritoneal Dialysis Malignancy Medical History: Reports None GI Medical History: Reports: Hx Crohn's Disease, Hx Gastroesophageal Reflux Di sease, Hx Hepatitis, Hx Pancreatitis Musculoskeletal Medical History: Denies Hx Arthritis Skin Medical History: Reports None Psychiatric Medical History: Reports: Hx Depression Traumatic Medical History: Reports: None Infectious Medical History: Reports: None Past Surgical History: Reports: None. Denies: Hx Pacemaker - Immunizations Immunizations up to date: Yes Hx Diphtheria, Pertussis, Tetanus Vaccination: Yes Hx Pneumococcal Vaccination: 11/01/00 Review of Systems - Review of Systems Notes: Constitutional: Negative for fever. HENT: Negative for sore throat. Eyes: Negative for visual changes. Cardiovascular: Negative for chest pain. Respiratory: Negative for shortness of breath. Gastrointestinal: Positive for abdominal pain, nausea, vomiting, diarrhea. Genitourinary: Negative for dysuria. Musculoskeletal: Negative for back pain. Skin: Negative for rash. Neurological: Negative for headaches, weakness or numbness. 10 point ROS negative except as marked above and in HPI. Physical Exam - Vital signs Vitals: Temp Pulse Resp BP Pulse Ox 98.2 F 85 22 H 149/103 H 100 09/25/20 16:16 09/25/20 16:16 09/25/20 16:16 09/25/20 16:16 09/25/20 16:16 - Notes Notes: CONSTITUTIONAL: The patient appears to be in pain. He is in mild distress. SKIN: Warm, dry, and intact without rash EYES: Extraocular movements are grossly intact, clear conjunctiva HENT: Normocephalic, atraumatic, moist mucus membranes NECK: No obvious swelling, normal range of motion PULMONARY: Normal chest rise and fall. Breath sounds clear and equal bilaterally. No respiratory distress or stridor CARDIOVASCULAR: Regular rate. No murmurs, rubs, gallops. Distal extremities are warm and well perfused. ABDOMINAL: The abdomen is soft. There is significant tenderness in the epigas trium and left upper quadrant of the abdomen. There is guarding but no rebound tenderness noted. NEUROLOGIC: Normal speech, moves all extremities. Cranial nerves are within normal limits. MUSCULOSKELETAL: No gross deformities, atraumatic PSYCHIATRIC: Normal mood and affect Course - Vital Signs Vital signs: Temp Pulse Resp BP Pulse Ox 98.2 F 85 22 H 149/103 H 100 09/25/20 16:16 09/25/20 16:16 09/25/20 16:16 09/25/20 16:16 09/25/20 16:16 - Laboratory Result Diagrams: 09/25/20 17:17 09/25/20 17:17 Laboratory results interpreted by me: 09/25/20 17:17 Sodium 134.6 L Potassium 3.1 L Carbon Dioxide 19 L Lipase 4866.0 H Salicylates < 1.0 L - Diagnostic Test Radiology reviewed: Reports reviewed - Consults Admission Consult Time consulted: 19:56 Reason for consultation: 09/25/20 19:30 This case was discussed with Dr. Boo who agrees to evaluate the patient in the emergency room for admission. Discharge - Discharge Clinical Impression: Acute pancreatitis Qualifiers: Pancreatitis type: unspecified pancreatitis type Acute pancreatitis complication: no infection or necrosis Qualified Code(s): K85.90 - Acute pancreatitis without necrosis or infection, unspecified Condition: Stable Disposition: ADMITTED INPATIENT Admitting Provider: Ema (Hospitalist) Unit Admitted: Medical Floor
[2020-09-25] MEDS ORDERED: ONDANSETRON HCL INJ/PF 4 MG/2 ML SDV IV ONE (18:05)
[2020-09-25] MEDS ORDERED: MORPHINE SULFATE 10 MG/ML INJ IV ONE ×2 (18:05→19:55)
[2020-09-25] MEDS ORDERED: MAG HYDROX/AL HYDROX/SIMETH SUSP 30 ML UDCUP PO PRN (20:02)
[2020-09-25] MEDS ORDERED: NORMAL SALINE 1000 ML 1,000 ML IV PRN (20:02)
[2020-09-25] MEDS ORDERED: ONDANSETRON HCL INJ/PF 4 MG/2 ML SDV IV PRN (20:02)
[2020-09-25] MEDS ORDERED: ACETAMINOPHEN 325 MG TABLET PO PRN (20:06)
[2020-09-25] MEDS ORDERED: POTASSIUM CHLORIDE 10 MEQ TABLET.ER PO ONE (20:07)
[2020-09-25] MEDS ORDERED: NICOTINE 14 MG/24 HR PATCH.TD24 TD PRN (20:34)
--- NOTE | 2020-09-25 20:44 | PDOC H&P ---
History of Present Illness Admission Date/PCP: 09/25/20 20:06 Patient complains of: abd pain History of Present Illness: KALANI CRENSHAW is a 45 year old male with a history of pancreatitis, alcoholism, and Crohn's, who presents to the hospital for evaluation of abdominal pain. He states his abdominal pain started 2 weeks ago but has progressively worsened. He describes it as a sharp and burning sensation mostly in his epigastrium as well as his umbilical region. No particular radiation. Seems to wrap around his umbilical region. Has had some nausea and nonbilious nonbloody vomitus. He states he last drank alcohol 2 weeks ago. He denies any current withdrawal symptoms. He denies fever or chills. He admits to melena but states that he follows with Dr. Krishnan for this and for his Crohn's disease and Dr. Krishnan is planning to do an upper and lower endoscopy on him in the near future. In the ER, CT scan showed some peripancreatic inflammation as well as duodenitis. Past Medical History Cardiac Medical History: Denies: Coronary Artery Disease, Myocardial Infarction, Hypertension Pulmonary Medical History: Denies: Asthma, Bronchitis, Chronic Obstructive Pulmonary Disease (COPD), Pneumonia EENT Medical History: Reports: None Neurological Medical History: Denies: Seizures Malignancy Medical History: Reports: None GI Medical History: Reports: Crohn's Disease, Gastroesophageal Reflux Disease, Hepatitis Musculoskeltal Medical History: Denies: Arthritis Skin Medical History: Reports: None Psychiatric Medical History: Reports: Depression Traumatic Medical History: Reports: None Hematology: Denies: Anemia Infectious Medical History: Reports: None Past Surgical History Past Surgical History: Reports: None Denies: Pacemaker Social History Lives with: Alone Smoking Status: Current Some Day Smoker Electronic Cigarette use?: No Frequency of Alcohol Use: Occasional Hx Recreational Drug Use: Yes Drugs: Marijuana Hx Prescription Drug Abuse: No - Advance Directive Resuscitation Status: Full Code Family History Family History: Hypertension Parental Family History Reviewed: Yes Children Family History Reviewed: Yes Sibling(s) Family History Reviewed.: Yes Medication/Allergy Home Medications: Mesalamine [Asacol Sr 400 mg Capsule] 1,600 mg PO DAILY 05/25/20 Omeprazole 40 mg PO DAILY 05/25/20 Sertraline HCl 100 mg PO QHS 05/25/20 Allergies/Adverse Reactions: hydrocodone bitartrate [From Vicodin] Allergy (Intermediate, Verified 09/25/20 16:45) Itching Review of Systems Constitutional: ABSENT: chills, fever(s) Eyes: ABSENT: visual disturbances Ears: ABSENT: hearing changes Nose, Mouth, and Throat: ABSENT: headache(s), sore throat Cardiovascular: ABSENT: edema, orthropnea Respiratory: ABSENT: cough, dyspnea - Told he has to take shallow breaths when his belly starts hurting. Gastrointestinal: PRESENT: abdominal pain, melena, nausea, vomiting. ABSENT: diarrhea Genitourinary: ABSENT: dysuria, hematuria Integumentary: ABSENT: diaphoresis Neurological: PRESENT: dizziness Psychiatric: ABSENT: anxiety Endocrine: ABSENT: polyuria Allergic/Immunologic: PRESENT: other - Denies rhinorrhea Physical Exam Vital Signs: Temp Pulse Resp BP Pulse Ox 98.2 F 85 22 H 149/103 H 100 09/25/20 16:16 09/25/20 16:16 09/25/20 16:16 09/25/20 16:16 09/25/20 16:16 Intake & Output 09/24/20 09/25/20 09/26/20 06:59 06:59 06:59 Intake Total 1010 Balance 1010 Weight 53.8 kg General appearance: PRESENT: no acute distress, cooperative, thin Head exam: PRESENT: normocephalic Mouth exam: PRESENT: neck supple Neck exam: ABSENT: JVD Respiratory exam: PRESENT: clear to auscultation kal, symmetrical, unlabored. ABSENT: tachypnea, wheezes Cardiovascular exam: PRESENT: RRR, +S1, +S2. ABSENT: tachycardia GI/Abdominal exam: PRESENT: soft, tenderness - Diffuse to abdomen but worst in his epigastrium. ABSENT: distended, firm, guarding, rebound, rigid Extremities exam: ABSENT: calf tenderness, pedal edema Neurological exam: PRESENT: alert, awake, oriented to person, oriented to place, oriented to time Psychiatric exam: ABSENT: agitated, anxious Focused psych exam: ABSENT: pressured speech Skin exam: ABSENT: jaundice Results Laboratory Results: 09/25/20 17:17 09/25/20 17:17 09/25/20 09/25/20 17:17 17:17 WBC 9.5 RBC 4.68 Hgb 15.2 Hct 44.7 MCV 96 MCH 32.5 MCHC 34.0 RDW 13.8 Plt Count 259 Seg Neutrophils % 76.3 Sodium 134.6 L Potassium 3.1 L Chloride 104 Carbon Dioxide 19 L Anion Gap 12 BUN 7 Creatinine 0.73 Est GFR ( Amer) > 60 Glucose 84 Calcium 9.4 Total Bilirubin 0.5 AST 30 Alkaline Phosphatase 98 Total Protein 7.4 Albumin 4.1 Lipase 4866.0 H Impressions: Abdomen/Pelvis CT 09/25/20 16:51 IMPRESSION: Evaluation is limited by the absence of intravenous contrast. There is effacement of the normal fat around the pancreatic head and uncinate process. The degree of distention of the 2nd and 3rd portions of the duodenum has decreased compared to the CT from 09/17/2020, however the degree of bowel wall thickening and surrounding inflammation involving the 2nd portion of the duodenum appears to have increased. The duodenal findings could be secondary to the previously described pancreatitis. Assessment and Plan - Diagnosis (1) Recurrent acute pancreatitis Is this a current diagnosis for this admission?: Yes Plan: CT abdomen/pelvis reviewed showing stranding of the pancreas as well as some duodenitis. Lipase significantly elevated. Suspected trigger is alcohol intake. Start patient on lactated Ringer's 160 cc/h Monitor I's and O's, electrolytes, CBC Pain control with IV morphine as needed (2) Alcoholic gastritis Qualifiers: Chronicity: acute Gastritis bleeding: with bleeding Qualified Code(s): K29.21 - Alcoholic gastritis with bleeding Is this a current diagnosis for this admission?: Yes Plan: Has significant epigastric pain and reports melena. He may have an ulcer or simply gastritis. Alcohol cessation counseling performed. Empirically cover with Protonix IV twice daily. (3) History of Crohn's disease Is this a current diagnosis for this admission?: Yes Plan: Follows with Dr. Krishnan. Will monitor for any signs of flare. CT does show some duodenitis but could be associated with her pancreatitis. Resume home dose of mesalamine. If worsens or gets severe, may try some low dose prednisone. (4) Melena Is this a current diagnosis for this admission?: Yes Plan: Reported by patient. CBC is currently stable. Hemoglobin is normal. He is already seen in Dr. Krishnan about this and he is planning for endoscopic evaluation as outpatient. As he is hemodynamically stable currently and his hemoglobin is adequate, I will defer this to outpatient evaluation by his electrical automation engineer. (5) Tobacco abuse Is this a current diagnosis for this admission?: Yes Plan: Nicotine patch offered (6) Alcoholism Is this a current diagnosis for this admission?: Yes Plan: Reports last drink was 2 weeks ago. If so he should be out of the withdrawal window by now. Does not seem to be in any signs of withdrawal. We will still monitor his CIWA. - Time Time Spent with patient: 35 or more minutes Anticipated Discharge Disposition: Home, Self Care Anticipated Discharge Timeframe: within 72 hours
[2020-09-25] MEDS: POTASSI CL 20 MEQ/50 ML RIDER 20 MEQ/50 ML RTUPB IV SCH (21:40)
[2020-09-25] MEDS: MORPHINE SULFATE 10 MG/ML INJ IV PRN (22:41)
[2020-09-25] MEDS: SERTRALINE HCL 50 MG TABLET PO SCH (22:41)
[2020-09-26] MEDS: POTASSI CL 20 MEQ/50 ML RIDER 20 MEQ/50 ML RTUPB IV SCH (00:22)
[2020-09-26] MEDS: MORPHINE SULFATE 10 MG/ML INJ IV PRN ×5 (04:48→22:29)
[2020-09-26] MEDS: RINGERS SOLUTION,LACTATED 1,000 ML IV PRN ×3 (04:51→21:16)
[2020-09-26 05:42] LABS: ABSOLUTE EOSINOPHILS # (AUTO) 0.2 10^3/uL (0.0-0.6); ABSOLUTE MONOCYTES (AUTO) 0.6 10^3/uL (0.1-1.4); ABSOLUTE NEUT (AUTO) 5.9 10^3/uL (1.7-8.2); BASOPHILS % (AUTO) 0.4 % (0-2); EOSINOPHILS % (AUTO) 2.6 % (0-6); HEMATOCRIT 40.3 % (37.9-51.0); HEMOGLOBIN 13.6 g/dL (13.5-17.0); LYMPHOCYTES % (AUTO) 12.8 % (13-45); MEAN CORPUSCULAR HEMOGLOBIN 32.4 pg (27.0-33.4); MEAN CORPUSCULAR HGB CONC 33.8 g/dL (32.0-36.0); MEAN CORPUSCULAR VOLUME 96 fl (80-97); MONOCYTES % (AUTO) 8.1 % (3-13); PLATELET COUNT 195 10^3/uL (150-450); RED CELL DISTRIBUTION WIDTH 14.1 % (11.5-14.0); SEGMENTED NEUTROPHILS % (AUTO) 76.1 % (42-78); TOTAL CELLS COUNTED % (AUTO) 100 %; WHITE BLOOD COUNT 7.7 10^3/uL (4.0-10.5)
[2020-09-26 06:01] LABS: ALBUMIN 3.1 g/dL (3.5-5.0); ALKALINE PHOSPHATASE 90 U/L (38-126); ANION GAP 7 (5-19); ASPARTATE AMINO TRANSFERASE 23 U/L (17-59); BILIRUBIN,DIRECT 0.1 mg/dL (0.0-0.4); BILIRUBIN,TOTAL 0.5 mg/dL (0.2-1.3); BLOOD UREA NITROGEN 4 mg/dL (7-20); CALCIUM 8.6 mg/dL (8.4-10.2); CARBON DIOXIDE 16 mmol/L (22-30); CHLORIDE 112 mmol/L (98-107); GLUCOSE 90 mg/dL (75-110); PHOSPHORUS 2.5 mg/dL (2.5-4.5); TOTAL PROTEIN 5.8 g/dL (6.3-8.2)
[2020-09-26 06:11] LABS: POTASSIUM 4.5 mmol/L (3.6-5.0)
[2020-09-26] MEDS: PANTOPRAZOLE SODIUM 40 MG VIAL IV SCH ×2 (08:12→17:25)
[2020-09-26] MEDS: MESALAMINE 1.2 GM TABLET.DR PO SCH ×3 (08:12→08:29)
--- NOTE | 2020-09-26 16:42 | PDOC PROGRESS REPORT ---
Subjective Date:: 09/26/20 Subjective:: KALANI CRENSHAW is a 45 year old male with a history of pancreatitis, alcoholism, and Crohn's, who presents to the hospital for evaluation of abdominal pain. He states his abdominal pain started 2 weeks ago but has progressively worsened. He describes it as a sharp and burning sensation mostly in his epigastrium as well as his umbilical region. No particular radiation. Seems to wrap around his umbilical region. Has had some nausea and nonbilious nonbloody vomitus. He states he last drank alcohol 2 weeks ago. He denies any current withdrawal symptoms. He denies fever or chills. He admits to melena but states that he follows with Dr. Krishnan for this and for his Crohn's disease and Dr. Krishnan is planning to do an upper and lower endoscopy on him in the near future. In the ER, CT scan showed some peripancreatic inflammation as well as duodenitis. D2 hospital stay 09/26/20. He was seen and examined at bedside. He still has abdominal pain and is requesting more pain meds. He reports having melanotic stools but Hgb and vital signs have been stable. He is on IV fluids and pain medications. He is tolerating diet. Reason For Visit: ACUTE PANCREATITIS Physical Exam Vital Signs: Temp Pulse Resp BP Pulse Ox 97.8 F 77 26 H 148/88 H 100 09/26/20 10:00 09/26/20 08:05 09/26/20 08:05 09/26/20 08:05 09/26/20 08:05 Intake & Output 09/25/20 09/26/20 09/27/20 06:59 06:59 06:59 Intake Total 1110 1000 Balance 1110 1000 Weight 53.8 kg General appearance: PRESENT: no acute distress, cooperative Head exam: PRESENT: atraumatic, normocephalic Eye exam: PRESENT: EOMI, PERRLA Mouth exam: PRESENT: moist Neck exam: PRESENT: full ROM Respiratory exam: PRESENT: clear to auscultation kal, symmetrical, unlabored Cardiovascular exam: PRESENT: RRR, +S1, +S2 GI/Abdominal exam: PRESENT: normal bowel sounds, soft, tenderness - Epigastric Extremities exam: PRESENT: full ROM Musculoskeletal exam: PRESENT: full ROM Neurological exam: PRESENT: alert, awake, oriented to person, oriented to place, oriented to time, oriented to situation Psychiatric exam: PRESENT: normal mood Skin exam: PRESENT: normal color Results Laboratory Results: 09/26/20 04:27 09/26/20 04:27 09/25/20 09/25/20 09/26/20 17:17 17:17 04:27 WBC 9.5 7.7 RBC 4.68 4.20 L Hgb 15.2 13.6 Hct 44.7 40.3 MCV 96 96 MCH 32.5 32.4 MCHC 34.0 33.8 RDW 13.8 14.1 H Plt Count 259 195 Seg Neutrophils % 76.3 76.1 Sodium 134.6 L Potassium 3.1 L Chloride 104 Carbon Dioxide 19 L Anion Gap 12 BUN 7 Creatinine 0.73 Est GFR ( Amer) > 60 Glucose 84 Calcium 9.4 Phosphorus Magnesium Total Bilirubin 0.5 AST 30 Alkaline Phosphatase 98 Total Protein 7.4 Albumin 4.1 Lipase 4866.0 H 09/26/20 04:27 WBC RBC Hgb Hct MCV MCH MCHC RDW Plt Count Seg Neutrophils % Sodium 134.5 L Potassium 4.5 D Chloride 112 H Carbon Dioxide 16 L Anion Gap 7 BUN 4 L Creatinine 0.64 Est GFR ( Amer) > 60 Glucose 90 Calcium 8.6 Phosphorus 2.5 Magnesium 2.0 Total Bilirubin 0.5 AST 23 Alkaline Phosphatase 90 Total Protein 5.8 L Albumin 3.1 L Lipase Impressions: Abdomen/Pelvis CT 09/25/20 16:51 IMPRESSION: Evaluation is limited by the absence of intravenous contrast. There is effacement of the normal fat around the pancreatic head and uncinate process. The degree of distention of the 2nd and 3rd portions of the duodenum has decreased compared to the CT from 09/17/2020, however the degree of bowel wall thickening and surrounding inflammation involving the 2nd portion of the duodenum appears to have increased. The duodenal findings could be secondary to the previously described pancreatitis. Assessment and Plan - Diagnosis (1) Recurrent acute pancreatitis Is this a current diagnosis for this admission?: Yes Plan: CT abdomen/pelvis reviewed showing stranding of the pancreas as well as some duodenitis. Lipase significantly elevated. Suspected trigger is alcohol intake. Start patient on lactated Ringer's 160 cc/h Monitor I's and O's, electrolytes, CBC Pain control with IV morphine as needed tolerating clear liquid. Will advance tomorrow (2) Melena Is this a current diagnosis for this admission?: Yes Plan: Reported by patient. - Hgb 15.2>13.6 - on protonix BID - He is already seen in Dr. Krishnan about this and he is planning for endoscopic evaluation as outpatient. As he is hemodynamically stable currently and his hemoglobin is adequate, I will defer this to outpatient evaluation by his armored car guard and driver. (3) Alcoholic gastritis Qualifiers: Chronicity: acute Gastritis bleeding: with bleeding Qualified Code(s): K29.21 - Alcoholic gastritis with bleeding Is this a current diagnosis for this admission?: Yes Plan: Has significant epigastric pain and reports melena. He may have an ulcer or simply gastritis. Alcohol cessation counseling performed. Empirically cover with Protonix IV twice daily. (4) History of Crohn's disease Is this a current diagnosis for this admission?: Yes Plan: Follows with Dr. Krishnan. Will monitor for any signs of flare. CT does show some duodenitis but could be associated with her pancreatitis. Resume home dose of mesalamine. If worsens or gets severe, may try some low dose prednisone. (5) Tobacco abuse Is this a current diagnosis for this admission?: Yes Plan: Nicotine patch offered (6) Alcoholism Is this a current diagnosis for this admission?: Yes Plan: Reports last drink was 2 weeks ago. If so he should be out of the withdrawal window by now. Does not seem to be in any signs of withdrawal. We will still monitor his CIWA. (7) Hypertension Qualifiers: Hypertension type: essential hypertension Qualified Code(s): I10 - Essential (primary) hypertension Is this a current diagnosis for this admission?: Yes - Time Time Spent with patient: 25-34 minutes Medications reviewed and adjusted accordingly: Yes Anticipated Discharge Disposition: Home, Self Care Anticipated Discharge Timeframe: within 48 hours
[2020-09-26] MEDS: SERTRALINE HCL 50 MG TABLET PO SCH (21:13)
[2020-09-27] MEDS: MORPHINE SULFATE 10 MG/ML INJ IV PRN ×5 (02:30→20:09)
[2020-09-27] MEDS: RINGERS SOLUTION,LACTATED 1,000 ML IV PRN ×2 (03:57→14:26)
[2020-09-27] MEDS ORDERED: INFLUENZA QUAD (6MOS+) 2020-21 VAC 0.5 ML SYR IM ONE (08:00)
[2020-09-27 08:34] LABS: ABSOLUTE BASOPHILS # (AUTO) 0.1 10^3/uL (0.0-0.2); ABSOLUTE EOSINOPHILS # (AUTO) 0.2 10^3/uL (0.0-0.6); ABSOLUTE LYMPHOCYTES (AUTO) 1.4 10^3/uL (0.5-4.7); ABSOLUTE MONOCYTES (AUTO) 0.5 10^3/uL (0.1-1.4); ABSOLUTE NEUT (AUTO) 3.6 10^3/uL (1.7-8.2); BASOPHILS % (AUTO) 1.3 % (0-2); EOSINOPHILS % (AUTO) 3.9 % (0-6); HEMATOCRIT 36.4 % (37.9-51.0); HEMOGLOBIN 12.4 g/dL (13.5-17.0); LYMPHOCYTES % (AUTO) 24.5 % (13-45); MEAN CORPUSCULAR HEMOGLOBIN 32.3 pg (27.0-33.4); MEAN CORPUSCULAR HGB CONC 34.1 g/dL (32.0-36.0); MEAN CORPUSCULAR VOLUME 95 fl (80-97); MONOCYTES % (AUTO) 8.9 % (3-13); PLATELET COUNT 163 10^3/uL (150-450); RED BLOOD COUNT 3.84 10^6/uL (4.35-5.55); RED CELL DISTRIBUTION WIDTH 13.9 % (11.5-14.0); SEGMENTED NEUTROPHILS % (AUTO) 61.4 % (42-78); TOTAL CELLS COUNTED % (AUTO) 100 %; WHITE BLOOD COUNT 5.9 10^3/uL (4.0-10.5)
[2020-09-27 09:01] LABS: ALBUMIN 2.6 g/dL (3.5-5.0); ALKALINE PHOSPHATASE 77 U/L (38-126); ASPARTATE AMINO TRANSFERASE 26 U/L (17-59); BILIRUBIN,DIRECT 0.1 mg/dL (0.0-0.4); BILIRUBIN,TOTAL 0.6 mg/dL (0.2-1.3); BLOOD UREA NITROGEN 2 mg/dL (7-20); CALCIUM 8.5 mg/dL (8.4-10.2); GLUCOSE 86 mg/dL (75-110); POTASSIUM 3.9 mmol/L (3.6-5.0)
[2020-09-27] MEDS: MESALAMINE 1.2 GM TABLET.DR PO SCH (09:04)
[2020-09-27] MEDS: PANTOPRAZOLE SODIUM 40 MG VIAL IV SCH ×2 (09:05→20:19)
[2020-09-27 09:06] LABS: CARBON DIOXIDE 24 mmol/L (22-30); CHLORIDE 109 mmol/L (98-107)
[2020-09-27 09:10] LABS: ANION GAP 3 (5-19)
[2020-09-27] MEDS ORDERED: ONDANSETRON HCL INJ/PF 4 MG/2 ML SDV IV PRN (14:30)
--- NOTE | 2020-09-27 19:19 | PDOC PROGRESS REPORT ---
Subjective Date:: 09/27/20 Subjective:: KALANI CRENSHAW is a 45 year old male with a history of pancreatitis, alcoholism, and Crohn's, who presents to the hospital for evaluation of abdominal pain. He states his abdominal pain started 2 weeks ago but has progressively worsened. He describes it as a sharp and burning sensation mostly in his epigastrium as well as his umbilical region. No particular radiation. Seems to wrap around his umbilical region. Has had some nausea and nonbilious nonbloody vomitus. He states he last drank alcohol 2 weeks ago. He denies any current withdrawal symptoms. He denies fever or chills. He admits to melena but states that he follows with Dr. Krishnan for this and for his Crohn's disease and Dr. Krishnan is planning to do an upper and lower endoscopy on him in the near future. In the ER, CT scan showed some peripancreatic inflammation as well as duodenitis. D2 hospital stay 09/26/20. He was seen and examined at bedside. He still has abdominal pain and is requesting more pain meds. He reports having melanotic stools but Hgb and vital signs have been stable. He is on IV fluids and pain medications. He is tolerating diet. D3 Hospital stay 09/27/20. He was seen and examined at bedside. he is still complaining of abdominal pain however he is not tachycardic and seems to be comfortable looking when I examine him. he asks for increased doses of morphine which i did not do. He still has melanotic stools hgb 12.4 from 15.2. He remains afebrile and is tolerating regular diet. Reason For Visit: ACUTE PANCREATITIS Physical Exam Vital Signs: Temp Pulse Resp BP Pulse Ox 98.0 F 89 18 131/80 H 100 09/27/20 11:11 09/27/20 11:11 09/27/20 11:11 09/27/20 11:11 09/27/20 11:11 Intake & Output 09/26/20 09/27/20 09/28/20 06:59 06:59 06:59 Intake Total 1110 6518 1600 Balance 1110 6518 1600 Weight 53.8 kg 54.7 kg General appearance: PRESENT: no acute distress, cooperative, thin Head exam: PRESENT: atraumatic, normocephalic Eye exam: PRESENT: EOMI, PERRLA Mouth exam: PRESENT: moist Neck exam: PRESENT: full ROM Respiratory exam: PRESENT: clear to auscultation kal, symmetrical, unlabored Cardiovascular exam: PRESENT: RRR, +S1, +S2 GI/Abdominal exam: PRESENT: normal bowel sounds, soft, tenderness - epigastric tenderness Rectal exam: PRESENT: black stool Extremities exam: PRESENT: full ROM Musculoskeletal exam: PRESENT: full ROM Neurological exam: PRESENT: alert, awake, oriented to person, oriented to place, oriented to time, oriented to situation Psychiatric exam: PRESENT: normal mood Skin exam: PRESENT: normal color Results Laboratory Results: 09/27/20 04:52 09/27/20 04:52 09/27/20 09/27/20 09/27/20 04:52 04:52 04:52 WBC 5.9 RBC 3.84 L Hgb 12.4 L Hct 36.4 L MCV 95 MCH 32.3 MCHC 34.1 RDW 13.9 Plt Count 163 Seg Neutrophils % 61.4 Sodium 136.1 L Potassium 3.9 Chloride 109 H Carbon Dioxide 24 Anion Gap 3 L BUN 2 L Creatinine 0.47 L Est GFR ( Amer) > 60 Glucose 86 Calcium 8.5 Magnesium 1.9 Total Bilirubin 0.6 AST 26 Alkaline Phosphatase 77 Total Protein 5.0 L Albumin 2.6 L Impressions: Abdomen/Pelvis CT 09/25/20 16:51 IMPRESSION: Evaluation is limited by the absence of intravenous contrast. There is effacement of the normal fat around the pancreatic head and uncinate process. The degree of distention of the 2nd and 3rd portions of the duodenum has decreased compared to the CT from 09/17/2020, however the degree of bowel wall thickening and surrounding inflammation involving the 2nd portion of the duodenum appears to have increased. The duodenal findings could be secondary to the previously described pancreatitis. Assessment and Plan - Diagnosis (1) Recurrent acute pancreatitis Is this a current diagnosis for this admission?: Yes Plan: CT abdomen/pelvis reviewed showing stranding of the pancreas as well as some d uodenitis. Lipase significantly elevated. Suspected trigger is alcohol intake. Start patient on lactated Ringer's decreased to 80 cc/hr. he is producing adequate urine Monitor I's and O's, electrolytes, CBC Pain control with IV morphine as needed tolerating regular diet. (2) Melena Is this a current diagnosis for this admission?: Yes Plan: Reported by patient. - Hgb 15.2>13.6>12.4 - on protonix BID - He is already seen in Dr. Krishnan about this and he is planning for endoscopic evaluation as outpatient. As he is hemodynamically stable currently and his hemoglobin is adequate. If he continues to downtrend will consult Dr. Krishnan for EGD (3) Alcoholic gastritis Qualifiers: Chronicity: acute Gastritis bleeding: with bleeding Qualified Code(s): K29.21 - Alcoholic gastritis with bleeding Is this a current diagnosis for this admission?: Yes Plan: Has significant epigastric pain and reports melena. He may have an ulcer or simply gastritis. Alcohol cessation counseling performed. Empirically cover with Protonix IV twice daily. (4) History of Crohn's disease Is this a current diagnosis for this admission?: Yes Plan: - on mesalamine - will start prednisone 40 mg daily - Follows with Dr. Krishnan. (5) Tobacco abuse Is this a current diagnosis for this admission?: Yes Plan: Nicotine patch offered (6) Alcoholism Is this a current diagnosis for this admission?: Yes Plan: Reports last drink was 2 weeks ago. If so he should be out of the withdrawal window by now. Does not seem to be in any signs of withdrawal. We will still monitor his CIWA. (7) Hypertension Qualifiers: Hypertension type: essential hypertension Qualified Code(s): I10 - Essential (primary) hypertension Is this a current diagnosis for this admission?: Yes - Time Time Spent with patient: 25-34 minutes Medications reviewed and adjusted accordingly: Yes Anticipated Discharge Disposition: Home, Self Care Anticipated Discharge Timeframe: TBD
[2020-09-27] MEDS: SERTRALINE HCL 50 MG TABLET PO SCH (21:10)
[2020-09-28] MEDS: MORPHINE SULFATE 10 MG/ML INJ IV PRN ×4 (00:28→14:36)
[2020-09-28] MEDS: RINGERS SOLUTION,LACTATED 1,000 ML IV PRN ×2 (03:00→14:39)
[2020-09-28] MEDS: MESALAMINE 1.2 GM TABLET.DR PO SCH (08:29)
[2020-09-28] MEDS: PANTOPRAZOLE SODIUM 40 MG VIAL IV SCH ×2 (08:29→18:16)
[2020-09-28] MEDS: PREDNISONE 20 MG TABLET PO SCH (10:01)
[2020-09-28 10:30] LABS: ABSOLUTE BASOPHILS # (AUTO) 0.1 10^3/uL (0.0-0.2); ABSOLUTE EOSINOPHILS # (AUTO) 0.2 10^3/uL (0.0-0.6); ABSOLUTE MONOCYTES (AUTO) 0.4 10^3/uL (0.1-1.4); ABSOLUTE NEUT (AUTO) 4.4 10^3/uL (1.7-8.2); EOSINOPHILS % (AUTO) 3.4 % (0-6); HEMATOCRIT 37.3 % (37.9-51.0); HEMOGLOBIN 12.7 g/dL (13.5-17.0); LYMPHOCYTES % (AUTO) 16.8 % (13-45); MEAN CORPUSCULAR HEMOGLOBIN 32.4 pg (27.0-33.4); MEAN CORPUSCULAR HGB CONC 34.1 g/dL (32.0-36.0); MEAN CORPUSCULAR VOLUME 95 fl (80-97); PLATELET COUNT 192 10^3/uL (150-450); RED BLOOD COUNT 3.92 10^6/uL (4.35-5.55); RED CELL DISTRIBUTION WIDTH 13.9 % (11.5-14.0); SEGMENTED NEUTROPHILS % (AUTO) 71.8 % (42-78); TOTAL CELLS COUNTED % (AUTO) 100 %; WHITE BLOOD COUNT 6.2 10^3/uL (4.0-10.5)
[2020-09-28] MEDS ORDERED: HYDROCODONE/ACETAMINOPHEN 5-325 MG TABLET PO PRN (16:08)
--- NOTE | 2020-09-28 18:56 | PDOC PROGRESS REPORT ---
Subjective Date:: 09/28/20 Subjective:: KALANI CRENSHAW is a 45 year old male with a history of pancreatitis, alcoholism, and Crohn's, who presents to the hospital for evaluation of abdominal pain. He states his abdominal pain started 2 weeks ago but has progressively worsened. He describes it as a sharp and burning sensation mostly in his epigastrium as well as his umbilical region. No particular radiation. Seems to wrap around his umbilical region. Has had some nausea and nonbilious nonbloody vomitus. He states he last drank alcohol 2 weeks ago. He denies any current withdrawal symptoms. He denies fever or chills. He admits to melena but states that he follows with Dr. Krishnan for this and for his Crohn's disease and Dr. Krishnan is planning to do an upper and lower endoscopy on him in the near future. In the ER, CT scan showed some peripancreatic inflammation as well as duodenitis. D2 hospital stay 09/26/20. He was seen and examined at bedside. He still has abdominal pain and is requesting more pain meds. He reports having melanotic stools but Hgb and vital signs have been stable. He is on IV fluids and pain medications. He is tolerating diet. D3 Hospital stay 09/27/20. He was seen and examined at bedside. he is still complaining of abdominal pain however he is not tachycardic and seems to be comfortable looking when I examine him. he asks for increased doses of morphine which i did not do. He still has melanotic stools hgb 12.4 from 15.2. He remains afebrile and is tolerating regular diet. D4 Hospital stay 09/28/20. He was seen and examined at bedside. No further episodes of melena today, reports that abdominal pain is much better. He was started on prednisone today. I have switched him over to oral norco. Reason For Visit: ACUTE PANCREATITIS Physical Exam Vital Signs: Temp Pulse Resp BP Pulse Ox 97.7 F 94 16 130/72 H 99 09/28/20 16:06 09/28/20 16:06 09/28/20 16:06 09/28/20 16:06 09/28/20 16:06 Intake & Output 09/27/20 09/28/20 09/29/20 06:59 06:59 06:59 Intake Total 6518 3036 1978 Balance 6518 3036 1978 Weight 54.7 kg 54.7 kg General appearance: PRESENT: no acute distress, cooperative Head exam: PRESENT: atraumatic, normocephalic Eye exam: PRESENT: EOMI, PERRLA Mouth exam: PRESENT: moist Neck exam: PRESENT: full ROM Respiratory exam: PRESENT: clear to auscultation kal, symmetrical, unlabored Cardiovascular exam: PRESENT: RRR, +S1, +S2 Pulses: PRESENT: +2 pedal pulses bilateral GI/Abdominal exam: PRESENT: normal bowel sounds, soft. ABSENT: rebound, tenderness Extremities exam: PRESENT: full ROM Musculoskeletal exam: PRESENT: full ROM Neurological exam: PRESENT: alert, awake, oriented to person, oriented to place, oriented to time, oriented to situation Psychiatric exam: PRESENT: normal mood Skin exam: PRESENT: normal color Results Laboratory Results: 09/28/20 10:07 09/27/20 04:52 09/28/20 10:07 WBC 6.2 RBC 3.92 L Hgb 12.7 L Hct 37.3 L MCV 95 MCH 32.4 MCHC 34.1 RDW 13.9 Plt Count 192 Seg Neutrophils % 71.8 Impressions: Abdomen/Pelvis CT 09/25/20 16:51 IMPRESSION: Evaluation is limited by the absence of intravenous contrast. There is effacement of the normal fat around the pancreatic head and uncinate process. The degree of distention of the 2nd and 3rd portions of the duodenum has decreased compared to the CT from 09/17/2020, however the degree of bowel wall thickening and surrounding inflammation involving the 2nd portion of the duodenum appears to have increased. The duodenal findings could be secondary to the previously described pancreatitis. Assessment and Plan - Diagnosis (1) Recurrent acute pancreatitis Is this a current diagnosis for this admission?: Yes Plan: CT abdomen/pelvis reviewed showing stranding of the pancreas as well as some duodenitis. Lipase significantly elevated. Suspected trigger is alcohol intake. Start patient on lactated Ringer's decreased to 80 cc/hr. he is producing adequate urine Monitor I's and O's, electrolytes, CBC Pain control switched to oral tolerating regular diet.Plan for discharge tomorrow (2) Melena Is this a current diagnosis for this admission?: Yes Plan: Reported by patient. - Hgb 15.2>13.6>12.4>12.7 - on protonix BID - He is already seen in Dr. Krishnan about this and he is planning for endoscopic evaluation as outpatient. As he is hemodynamically stable currently and his hemoglobin is adequate. If he continues to downtrend will consult Dr. Krishnan for EGD (3) Alcoholic gastritis Qualifiers: Chronicity: acute Gastritis bleeding: with bleeding Qualified Code(s): K29.21 - Alcoholic gastritis with bleeding Is this a current diagnosis for this admission?: Yes Plan: Has significant epigastric pain and reports melena. He may have an ulcer or simply gastritis. Alcohol cessation counseling performed. Empirically cover with Protonix IV twice daily. (4) History of Crohn's disease Is this a current diagnosis for this admission?: Yes Plan: - on mesalamine - will start prednisone 40 mg daily - Follows with Dr. Krishnan. (5) Tobacco abuse Is this a current diagnosis for this admission?: Yes Plan: Nicotine patch offered (6) Alcoholism Is this a current diagnosis for this admission?: Yes Plan: Reports last drink was 2 weeks ago. If so he should be out of the withdrawal window by now. Does not seem to be in any signs of withdrawal. We will still monitor his CIWA. (7) Hypertension Qualifiers: Hypertension type: essential hypertension Qualified Code(s): I10 - Essential (primary) hypertension Is this a current diagnosis for this admission?: Yes - Time Time Spent with patient: 25-34 minutes Medications reviewed and adjusted accordingly: Yes Anticipated Discharge Disposition: Home, Self Care Anticipated Discharge Timeframe: within 24 hours
[2020-09-28] MEDS: SERTRALINE HCL 50 MG TABLET PO SCH (21:55)
[2020-09-28] MEDS: KETOROLAC TROMETHAMINE INJ/PF 30 MG/1 ML SDV IV PRN (23:57)
[2020-09-28] MEDS ORDERED: POLYETHYLENE GLYCOL 3350 POWDER 17 GM/1 PACKET PO ONE (23:59)
[2020-09-29] MEDS: PREDNISONE 20 MG TABLET PO SCH (09:16)
[2020-09-29] MEDS: PANTOPRAZOLE SODIUM 40 MG VIAL IV SCH (09:17)
[2020-09-29] MEDS: MESALAMINE 1.2 GM TABLET.DR PO SCH (09:17)
[2020-09-29] MEDS: KETOROLAC TROMETHAMINE INJ/PF 30 MG/1 ML SDV IV PRN (09:17)
[2020-09-29] MEDS ORDERED: POLYETHYLENE GLYCOL 3350 POWDER 17 GM/1 PACKET PO SCH (10:00)
[2020-09-29 13:48] VITALS: BP 124/80
--- NOTE | 2020-09-29 15:47 | PDOC DISCHARGE SUMMARY ---
Impression - Admit/DC Date/PCP Admission Date/Primary Care Provider: 09/25/20 20:06 Discharge Date: 09/29/20 - Discharge Diagnosis (1) Recurrent acute pancreatitis Is this a current diagnosis for this admission?: Yes (2) Melena Is this a current diagnosis for this admission?: Yes (3) Alcoholic gastritis Is this a current diagnosis for this admission?: Yes (4) History of Crohn's disease Is this a current diagnosis for this admission?: Yes (5) Tobacco abuse Is this a current diagnosis for this admission?: Yes (6) Alcoholism Is this a current diagnosis for this admission?: Yes (7) Hypertension Is this a current diagnosis for this admission?: Yes - Assessment Summary: (1) Recurrent acute pancreatitis Is this a current diagnosis for this admission?: Yes Plan: CT abdomen/pelvis reviewed showing stranding of the pancreas as well as some duodenitis. Lipase significantly elevated. Suspected trigger is alcohol intake. Start patient on lactated Ringer's decreased to 80 cc/hr. he is producing adequate urine Monitor I's and O's, electrolytes, CBC Pain control switched to oral tolerating regular diet.Plan for discharge tomorrow (2) Melena Is this a current diagnosis for this admission?: Yes Plan: Reported by patient. - Hgb 15.2>13.6>12.4>12.7 - on protonix BID - He is already seen in Dr. Bang about this and he is planning for endoscopic evaluation as outpatient. As he is hemodynamically stable currently and his hemoglobin is adequate. If he continues to downtrend will consult Dr. Bang for EGD (3) Alcoholic gastritis Qualifiers: Chronicity: acute Gastritis bleeding: with bleeding Qualified Code(s): K29.21 - Alcoholic gastritis with bleeding Is this a current diagnosis for this admission?: Yes Plan: Has significant epigastric pain and reports melena. He may have an ulcer or simply gastritis. Alcohol cessation counseling performed. Empirically cover with Protonix IV twice daily. (4) History of Crohn's disease Is this a current diagnosis for this admission?: Yes Plan: - on mesalamine - will start prednisone 40 mg daily - Follows with Dr. Bang. (5) Tobacco abuse Is this a current diagnosis for this admission?: Yes Plan: Nicotine patch offered (6) Alcoholism Is this a current diagnosis for this admission?: Yes Plan: Reports last drink was 2 weeks ago. If so he should be out of the withdrawal window by now. Does not seem to be in any signs of withdrawal. We will still monitor his CIWA. - Additional Information Resuscitation Status: Full Code Discharge Diet: As Tolerated Discharge Activity: Activity As Tolerated Referrals: HARJINDER BANG MD [ACTIVE STAFF] - Prescriptions: Prednisone [Deltasone 20 mg Tablet] 40 mg PO DAILY 7 Days #7 tablet Morphine Sulfate [Morphine Ir 15 Mg Tablet] 15 mg PO Q8HP PRN 4 Days #12 tablet PRN Reason: Acetaminophen [Tylenol 325 mg Tablet] 650 mg PO Q6HP PRN 7 Days #15 tablet PRN Reason: Ondansetron HCl [Zofran] 8 mg PO Q8HP PRN 4 Days #12 tablet PRN Reason: For Nausea/Vomiting Home Medications: Mesalamine [Asacol Sr 400 mg Capsule] 1,600 mg PO DAILY 05/25/20 Omeprazole 40 mg PO DAILY 05/25/20 Sertraline HCl 100 mg PO QHS 05/25/20 Acetaminophen [Tylenol 325 mg Tablet] 650 mg PO Q6HP PRN 7 Days #15 tablet 09/29/20 Morphine Sulfate [Morphine Ir 15 Mg Tablet] 15 mg PO Q8HP PRN 4 Days #12 tablet 09/29/20 Ondansetron HCl [Zofran] 8 mg PO Q8HP PRN 4 Days #12 tablet 09/29/20 Prednisone [Deltasone 20 mg Tablet] 40 mg PO DAILY 7 Days #7 tablet 09/29/20 History of Present Illiness History of Present Illness: KALANI CRENSHAW is a 45 year old male, with a history of pancreatitis, alcoholism, and Crohn's, who presents to the hospital for evaluation of abdominal pain. He states his abdominal pain started 2 weeks ago but has progressively worsened. He describes it as a sharp and burning sensation mostly in his epigastrium as well as his umbilical region. No particular radiation. Seems to wrap around his umbilical region. Has had some nausea and nonbilious nonbloody vomitus. He states he last drank alcohol 2 weeks ago. He denies any current withdrawal symptoms. He denies fever or chills. He admits to melena but states that he follows with Dr. Bang for this and for his Crohn's disease and Dr. Bang is planning to do an upper and lower endoscopy on him in the near future. In the ER, CT scan showed some peripancreatic inflammation as well as duodenitis. Hospital Course Hospital Course: D2 hospital stay 09/26/20. He was seen and examined at bedside. He still has abdominal pain and is requesting more pain meds. He reports having melanotic stools but Hgb and vital signs have been stable. He is on IV fluids and pain medications. He is tolerating diet. D3 Hospital stay 09/27/20. He was seen and examined at bedside. he is still complaining of abdominal pain however he is not tachycardic and seems to be comfortable looking when I examine him. he asks for increased doses of morphine which i did not do. He still has melanotic stools hgb 12.4 from 15.2. He remains afebrile and is tolerating regular diet. D4 Hospital stay 09/28/20. He was seen and examined at bedside. No further episodes of melena today, reports that abdominal pain is much better. He was started on prednisone today. I have switched him over to oral norco. D5 hospital stay 09/29/20 He was seen and examined at bedside. He remained stable and abdominal pain was improved. he was discharged on prednisone for crohn's , protonix, and pain medications. he was advised follow up with Dr. Bang for EGD and colonoscopy. Physical Exam Vital Signs: Temp Pulse Resp BP Pulse Ox 98.2 F 84 17 133/84 H 98 09/29/20 13:10 09/29/20 13:10 09/29/20 13:10 09/29/20 13:10 09/29/20 13:10 Intake & Output 09/28/20 09/29/20 09/30/20 06:59 06:59 06:59 Intake Total 3035 Balance 3035 Weight 54.7 kg 54.5 kg General appearance: PRESENT: no acute distress, cooperative Head exam: PRESENT: atraumatic, normocephalic Eye exam: PRESENT: EOMI, PERRLA Mouth exam: PRESENT: moist Neck exam: PRESENT: full ROM Respiratory exam: PRESENT: clear to auscultation kal, symmetrical, unlabored Cardiovascular exam: PRESENT: RRR, +S1, +S2 GI/Abdominal exam: PRESENT: normal bowel sounds, soft. ABSENT: rebound, tenderness Extremities exam: PRESENT: full ROM Musculoskeletal exam: PRESENT: full ROM Neurological exam: PRESENT: alert, awake, oriented to person, oriented to place, oriented to time, oriented to situation Psychiatric exam: PRESENT: normal mood Skin exam: PRESENT: normal color Results Laboratory Results: WBC 6.2 10^3/uL (4.0-10.5) 09/28/20 10:07 RBC 3.92 10^6/uL (4.35-5.55) L 09/28/20 10:07 Hgb 12.7 g/dL (13.5-17.0) L 09/28/20 10:07 Hct 37.3 % (37.9-51.0) L 09/28/20 10:07 MCV 95 fl (80-97) 09/28/20 10:07 MCH 32.4 pg (27.0-33.4) 09/28/20 10:07 MCHC 34.1 g/dL (32.0-36.0) 09/28/20 10:07 RDW 13.9 % (11.5-14.0) 09/28/20 10:07 Plt Count 192 10^3/uL (150-450) 09/28/20 10:07 Lymph % (Auto) 16.8 % (13-45) 09/28/20 10:07 Gibson % (Auto) 7.0 % (3-13) 09/28/20 10:07 Eos % (Auto) 3.4 % (0-6) 09/28/20 10:07 Baso % (Auto) 1.0 % (0-2) 09/28/20 10:07 Absolute Neuts (auto) 4.4 10^3/uL (1.7-8.2) 09/28/20 10:07 Absolute Lymphs (auto) 1.0 10^3/uL (0.5-4.7) 09/28/20 10:07 Absolute Monos (auto) 0.4 10^3/uL (0.1-1.4) 09/28/20 10:07 Absolute Eos (auto) 0.2 10^3/uL (0.0-0.6) 09/28/20 10:07 Absolute Basos (auto) 0.1 10^3/uL (0.0-0.2) 09/28/20 10:07 Seg Neutrophils % 71.8 % (42-78) 09/28/20 10:07 PT 12.4 SEC (11.4-15.4) 09/25/20 17:17 INR 0.90 09/25/20 17:17 APTT 35.4 SEC (23.5-35.8) 09/25/20 17:17 Sodium 136.1 mmol/L (137-145) L 09/27/20 04:52 Potassium 3.9 mmol/L (3.6-5.0) 09/27/20 04:52 Chloride 109 mmol/L (98-107) H 09/27/20 04:52 Carbon Dioxide 24 mmol/L (22-30) 09/27/20 04:52 Anion Gap 3 (5-19) L 09/27/20 04:52 BUN 2 mg/dL (7-20) L 09/27/20 04:52 Creatinine 0.47 mg/dL (0.52-1.25) L 09/27/20 04:52 Est GFR ( Amer) > 60 (>60) 09/27/20 04:52 Est GFR (MDRD) Non-Af > 60 (>60) 09/27/20 04:52 Glucose 86 mg/dL (75-110) 09/27/20 04:52 Calcium 8.5 mg/dL (8.4-10.2) 09/27/20 04:52 Phosphorus 2.5 mg/dL (2.5-4.5) 09/26/20 04:27 Magnesium 1.9 mg/dL (1.6-2.3) 09/27/20 04:52 Total Bilirubin 0.6 mg/dL (0.2-1.3) 09/27/20 04:52 Direct Bilirubin 0.1 mg/dL (0.0-0.4) 09/27/20 04:52 Neonat Total Bilirubin Not Reportable 09/27/20 04:52 Neonat Direct Bilirubin Not Reportable 09/27/20 04:52 Neonat Indirect Bili Not Reportable 09/27/20 04:52 AST 26 U/L (17-59) 09/27/20 04:52 ALT 23 U/L (<50) 09/27/20 04:52 Alkaline Phosphatase 77 U/L (38-126) 09/27/20 04:52 Total Protein 5.0 g/dL (6.3-8.2) L 09/27/20 04:52 Albumin 2.6 g/dL (3.5-5.0) L 09/27/20 04:52 Lipase 930.4 U/L (23-300) H 09/28/20 22:15 Salicylates < 1.0 mg/dL (2.0-20.0) L 09/25/20 17:17 Impressions: Abdomen/Pelvis CT 09/25/20 16:51 IMPRESSION: Evaluation is limited by the absence of intravenous contrast. There is effacement of the normal fat around the pancreatic head and uncinate process. The degree of distention of the 2nd and 3rd portions of the duodenum has decreased compared to the CT from 09/17/2020, however the degree of bowel wall thickening and surrounding inflammation involving the 2nd portion of the duodenum appears to have increased. The duodenal findings could be secondary to the previously described pancreatitis. Plan Plan of Treatment: - follow up with Dr. Bang for EGD and colonoscopy - take prednisone for total of 7 days - advised to abstain from alcohol Stroke Is this a Stroke Patient?: No Acute Heart Failure Is this a Heart Failure Patient?: No
== END 2020-09-29 14:05 | disposition home or self-care (01) | DRG 438 ==
LOC: ER 16:01 → EH 20:06 → 5 21:01
PROVIDERS: ADMIT Internal Medicine; ATTEND Internal Medicine
DX: K85.20 Alcohol induced acute pancreatitis without necrosis or infection (principal); K29.21 Alcoholic gastritis with bleeding; K50.90 Crohn's disease, unspecified, without complications; F10.20 Alcohol dependence, uncomplicated; F17.210 Nicotine dependence, cigarettes, uncomplicated; K21.9 Gastro-esophageal reflux disease without esophagitis; I10 Essential (primary) hypertension; Z88.6 Allergy status to analgesic agent; K29.80 Duodenitis without bleeding; Z79.899 Other long term (current) drug therapy; Z23 Encounter for immunization
CPT/HCPCS: 36415; 74176; 80053; 80307; 83690; 83735; 84100; 85025; 85610; 85730; 90471; 90686; 96361; 96374; 96375; 99285; C9113; G0008; J1885; J2270; J2405; J3480; J3490; J7030; J7120; J7512

== ENCOUNTER → 2020-10-01 | Outpatient (CLI) | payer SELFPAY ==
[2020-10-01 14:12] LABS: HEMATOCRIT 40.3 % (37.9-51.0); HEMOGLOBIN 13.5 g/dL (13.5-17.0); MEAN CORPUSCULAR HEMOGLOBIN 32.1 pg (27.0-33.4); MEAN CORPUSCULAR HGB CONC 33.6 g/dL (32.0-36.0); MEAN CORPUSCULAR VOLUME 96 fl (80-97); RED BLOOD COUNT 4.22 10^6/uL (4.35-5.55); RED CELL DISTRIBUTION WIDTH 14.4 % (11.5-14.0); WHITE BLOOD COUNT 15.9 10^3/uL (4.0-10.5)
[2020-10-01 14:13] LABS: INTERNATIONAL RATION (INR) 0.81; PROTHROMBIN TIME 11.4 SEC (11.4-15.4)
[2020-10-01 14:28] LABS: ALBUMIN 3.7 g/dL (3.5-5.0); ALKALINE PHOSPHATASE 86 U/L (38-126); ANION GAP 5 (5-19); ASPARTATE AMINO TRANSFERASE 27 U/L (17-59); BILIRUBIN,DIRECT 0.2 mg/dL (0.0-0.4); BILIRUBIN,TOTAL 0.4 mg/dL (0.2-1.3); BLOOD UREA NITROGEN 8 mg/dL (7-20); CALCIUM 9.5 mg/dL (8.4-10.2); CARBON DIOXIDE 29 mmol/L (22-30); CHLORIDE 102 mmol/L (98-107); GLUCOSE 70 mg/dL (75-110); POTASSIUM 4.1 mmol/L (3.6-5.0); TOTAL PROTEIN 6.6 g/dL (6.3-8.2)
[2020-10-01 14:45] LABS: ABSOLUTE LYMPHOCYTES# (MANUAL) 0.8 10^3/uL (0.5-4.7); ABSOLUTE MONOCYTES # (MANUAL) 0.8 10^3/uL (0.1-1.4); BAND NEUTROPHILS % (MANUAL) 2 % (3-5); BASOPHILS % (MANUAL) 0 % (0-2); EOSINOPHILS % (MANUAL) 1 % (0-6); LYMPHOCYTES % (MANUAL) 4 % (13-45); MONOCYTES % (MANUAL) 5 % (3-13); PLATELET COMMENT ADEQUATE; SEGMENTED NEUTROPHILS % (MAN) 87 % (42-78); TOTAL CELLS COUNTED 100
[2020-10-01 14:53] LABS: PLATELET CLUMPS PRESENT; PLATELET COUNT 309 10^3/uL (150-450)
== END ==
LOC: OD 13:02
PROVIDERS: ATTEND Internal Medicine Gastroenterology
DX: B18.2 Chronic viral hepatitis C (principal)
CPT/HCPCS: 36415; 80053; 81270; 82172; 82247; 82977; 83010; 83883; 84460; 85025; 85610; 86317; 86701; 87522

== ENCOUNTER 2020-10-03 16:09 | Emergency (ER) | payer SELFPAY ==
[2020-10-03] MEDS ORDERED: NORMAL SALINE 1000 ML 1,000 ML IV ONE ×2 (16:44→20:45)
[2020-10-03] MEDS ORDERED: MORPHINE SULFATE 10 MG/ML INJ IV ONE ×4 (16:44→23:02)
--- NOTE | 2020-10-03 16:48 | ER Document Report ---
ED Medical Screen (RME) - General Chief Complaint: Lower Abdominal Pain Stated Complaint: LOW ABDOMINAL/BACK PAIN Time Seen by Provider: 10/03/20 16:40 Primary Care Provider: HARJINDER BANG MD [Primary Care Provider] - Follow up as needed TRAVEL OUTSIDE OF THE [place] IN LAST 30 DAYS: No - HPI Notes: 10/03/20 16:46 45-year-old male with past medical history for pancreatitis to the emergency department with complaints of progressively worsening upper abdominal pain for the past several days. He was admitted on September 25 for pancreatitis and had a 4-day stay. Just discharged on 29 September. He states he has been eating and drinking at home but every time he takes something and he has increasing pain. He has history of chronic hep C hepatitis C. He supposed to get a endoscopic and colonoscopy with Dr. Bang tomorrow. However he is concerned that he cannot tolerate the prep because of how much pain he has. He states that he has not been drinking any alcohol and quit drinking sometime ago. My brief medical screening exam illustrates tenderness to palpation in the epigastrium. I performed a brief medical screening exam on the patient determined that the patient needs further evaluation and management by main side provider. I have placed initial orders to help expedite care. - Related Data Allergies/Adverse Reactions: hydrocodone bitartrate [From Vicodin] Allergy (Intermediate, Verified 10/02/20 10:42) Itching Past Medical History - Social History Chew tobacco use (# tins/day): No Family history: Reviewed & Not Pertinent - Past Medical History Cardiac Medical History: Denies: Hx Coronary Artery Disease, Hx Heart Attack, Hx Hypertension Pulmonary Medical History: Denies: Hx Asthma, Hx Bronchitis, Hx COPD, Hx Pneumonia Neurological Medical History: Denies: Hx Cerebrovascular Accident, Hx Seizures Renal/ Medical History: Denies: Hx Peritoneal Dialysis GI Medical History: Reports: Hx Crohn's Disease, Hx Gastroesophageal Reflux Disease, Hx Hepatitis, Hx Pancreatitis Musculoskeltal Medical History: Denies Hx Arthritis Psychiatric Medical History: Reports: Hx Depression Infectious Medical History: Reports: Hx Hepatitis Past Surgical History: Denies: Hx Pacemaker - Immunizations Immunizations up to date: Yes Hx Diphtheria, Pertussis, Tetanus Vaccination: Yes Physical Exam - Vital signs Vitals: Temp Pulse Resp BP Pulse Ox 97.9 F 96 16 138/93 H 100 10/03/20 16:22 10/03/20 16:22 10/03/20 16:22 10/03/20 16:22 10/03/20 16:22 Course - Vital Signs Vital signs: Temp Pulse Resp BP Pulse Ox 97.9 F 96 16 138/93 H 100 10/03/20 16:22 10/03/20 16:22 10/03/20 16:22 10/03/20 16:22 10/03/20 16:22 Doctor's Discharge - Discharge Referrals: HARJINDER BANG MD [Primary Care Provider] - Follow up as needed
[2020-10-03 17:40] LABS: HEMATOCRIT 41.9 % (37.9-51.0); HEMOGLOBIN 14.3 g/dL (13.5-17.0); MEAN CORPUSCULAR HEMOGLOBIN 32.6 pg (27.0-33.4); MEAN CORPUSCULAR HGB CONC 34.3 g/dL (32.0-36.0); MEAN CORPUSCULAR VOLUME 95 fl (80-97); PLATELET COUNT 313 10^3/uL (150-450); RED BLOOD COUNT 4.39 10^6/uL (4.35-5.55); RED CELL DISTRIBUTION WIDTH 14.7 % (11.5-14.0); WHITE BLOOD COUNT 10.9 10^3/uL (4.0-10.5)
[2020-10-03 17:59] LABS: ALBUMIN 3.4 g/dL (3.5-5.0); ALKALINE PHOSPHATASE 87 U/L (38-126); ANION GAP 6 (5-19); ASPARTATE AMINO TRANSFERASE 22 U/L (17-59); BILIRUBIN,DIRECT 0.2 mg/dL (0.0-0.4); BILIRUBIN,TOTAL 0.4 mg/dL (0.2-1.3); BLOOD UREA NITROGEN 7 mg/dL (7-20); CALCIUM 9.1 mg/dL (8.4-10.2); CARBON DIOXIDE 29 mmol/L (22-30); CHLORIDE 101 mmol/L (98-107); GLUCOSE 85 mg/dL (75-110); TOTAL PROTEIN 6.2 g/dL (6.3-8.2)
[2020-10-03 18:03] LABS: ALCOHOL < 10 mg/dL (NONE DETECTED)
[2020-10-03 18:26] LABS: BASOPHILS % (MANUAL) 0 % (0-2)
[2020-10-03 18:31] LABS: ABSOLUTE LYMPHOCYTES# (MANUAL) 2.4 10^3/uL (0.5-4.7); ABSOLUTE MONOCYTES # (MANUAL) 0.4 10^3/uL (0.1-1.4); ANISOCYTOSIS SLIGHT; EOSINOPHILS % (MANUAL) 3 % (0-6); LYMPHOCYTES % (MANUAL) 21 % (13-45); METAMYELOCYTES % (MANUAL) 1 % (0-1); MONOCYTES % (MANUAL) 4 % (3-13); OVALOCYTES SLIGHT; PLATELET COMMENT ADEQUATE; POIKILOCYTOSIS SLIGHT; SEGMENTED NEUTROPHILS % (MAN) 68 % (42-78); TOTAL CELLS COUNTED 100
[2020-10-03 18:32] LABS: PROMYELOCYTES % (MANUAL) 2 % (0)
[2020-10-03] MEDS ORDERED: ONDANSETRON HCL INJ/PF 4 MG/2 ML SDV IV ONE (20:29)
--- NOTE | 2020-10-03 20:31 | ER Document Report ---
ED GI/ - General Chief Complaint: Abdominal Pain Stated Complaint: LOW ABDOMINAL/BACK PAIN Time Seen by Provider: 10/03/20 16:40 Primary Care Provider: HARJINDER BANG MD [Primary Care Provider] - 10/04/20 Information source: Patient Notes: Patient presents with a history of 1 month abdominal pain primarily to the epigastric area. Patient states yesterday started have lower abdominal pain and low back pain. Patient reports nausea vomiting and diarrhea. Patient states diarrhea started yesterday. Patient is vomited 4 times and had diarrhea 4 episodes today. Patient denies any fever or urinary symptoms. Patient does have a history of Crohn's as well as hepatitis and pancreatitis. Patient is scheduled for a colonoscopy and endoscopy procedure tomorrow. Patient states his symptoms started after he took Linzess which was part of his bowel prep. TRAVEL OUTSIDE OF THE [place] IN LAST 30 DAYS: No - HPI Patient complains to provider of: Abdominal pain, Diarrhea, Vomiting Onset: Other - 1 month Timing/Duration: Worse Quality of pain: Sharp, Throbbing Pain Level: 5 Location: Epigastric, Pelvis Associated symptoms: Diarrhea, Nausea, Vomiting. denies: Urinary hesitancy, Urinary frequency, Urinary retention, Urinary urgency Exacerbated by: Denies Relieved by: Denies Similar symptoms previously: Yes Recently seen / treated by doctor: Yes - Related Data Allergies/Adverse Reactions: hydrocodone bitartrate [From Vicodin] Allergy (Intermediate, Verified 10/02/20 10:42) Itching Past Medical History - General Information source: Patient - Social History Smoking Status: Current Every Day Smoker Chew tobacco use (# tins/day): No Frequency of alcohol use: None Drug Abuse: None Occupation: none Family History: Hypertension - Past Medical History Cardiac Medical History: Denies: Hx Coronary Artery Disease, Hx Heart Attack, Hx Hypertension Pulmonary Medical History: Denies: Hx Asthma, Hx Bronchitis, Hx COPD, Hx Pneumonia Neurological Medical History: Denies: Hx Cerebrovascular Accident, Hx Seizures Renal/ Medical History: Denies: Hx Peritoneal Dialysis GI Medical History: Reports: Hx Crohn's Disease, Hx Gastroesophageal Reflux Disease, Hx Hepatitis, Hx Pancreatitis Musculoskeletal Medical History: Denies Hx Arthritis Psychiatric Medical History: Reports: Hx Depression Infectious Medical History: Reports: Hx Hepatitis Surgical Hx: Negative Past Surgical History: Denies: Hx Pacemaker - Immunizations Immunizations up to date: Yes Hx Diphtheria, Pertussis, Tetanus Vaccination: Yes Hx Pneumococcal Vaccination: 11/01/00 Review of Systems - Review of Systems Constitutional: Recent illness - Recent admission for pancreatitis. denies: Fever EENT: No symptoms reported Cardiovascular: No symptoms reported Respiratory: No symptoms reported Gastrointestinal: Abdominal pain, Diarrhea, Nausea, Vomiting. denies: Black stools, Rectal bleeding Genitourinary: No symptoms reported. denies: Dysuria Male Genitourinary: No symptoms reported Musculoskeletal: Back pain Skin: No symptoms reported Hematologic/Lymphatic: No symptoms reported Neurological/Psychological: No symptoms reported Physical Exam - Vital signs Vitals: Temp Pulse Resp BP Pulse Ox 97.9 F 96 16 138/93 H 100 10/03/20 16:22 10/03/20 16:22 10/03/20 16:22 10/03/20 16:22 10/03/20 16:22 - Notes Notes: PHYSICAL EXAMINATION: GENERAL: no acute distress. HEAD: Atraumatic, normocephalic. EYES: sclera anicteric, conjunctiva are normal. ENT: nares patent. Moist mucous membranes. NECK: Normal range of motion, supple without lymphadenopathy LUNGS: CTAB and equal. No wheezes rales or rhonchi. HEART: Regular rate and rhythm without murmurs ABDOMEN: Soft, diffuse generalized tenderness, normal bowel sounds, epigastric guarding. EXTREMITIES: Normal range of motion, no pitting edema. BACK: No midline tenderness, no step-off or deformity. Bilateral CVA tenderness NEUROLOGICAL: Cranial nerves grossly intact. Normal speech. SKIN: Warm, Dry, normal turgor, no rashes or lesions noted Course - Re-evaluation Re-evalutation: 10/03/20 21:43 Patient continues to complain of lower abdominal pain that wraps around to his back. Patient is requesting additional pain medication. 10/03/20 21:[address] Gonzalez regarding patient presentation and diagnostic evaluation. Patient is scheduled for a colonoscopy and endoscopy procedure in the morning. She does not advise CT imaging at this time as patient's symptoms have been constant for the past month and he does have a procedure scheduled for the morning. Does recommend having patient continue with his bowel prep at this time, with plan for likely discharge. 10/03/20 23:02 Patient has tolerated his oral bowel prep without any emesis. 10/04/20 00:17 Patient without any emesis while here today. Patient is requesting just to stay until morning as he has a colonoscopy at 7 in the morning. Patient advised that we cannot hold off on discharge, for convenience. Patient with downtrending lipase, patient reports that upper abdominal tenderness is improved as compared to where it has been for the past month. Patient abdomen is soft, patient appears visibly more comfortable. We will plan for discharge so that patient can complete endoscopy procedures scheduled in the morning. Patient is agreeable with this discharge plan of care at this time. - Vital Signs Vital signs: Temp Pulse Resp BP Pulse Ox 98.5 F 91 16 145/96 H 100 10/04/20 00:51 10/04/20 00:51 10/04/20 00:51 10/04/20 00:51 10/04/20 00:51 - Laboratory Result Diagrams: 10/03/20 16:55 10/03/20 16:55 Laboratory results interpreted by me: 10/03/20 10/03/20 10/03/20 16:55 16:55 21:54 WBC 10.9 H RDW 14.7 H Promyelocytes % 2 H Sodium 135.8 L Total Protein 6.2 L Albumin 3.4 L Lipase 808.8 H Urine Protein 30 H Urine Urobilinogen 2.0 H 10/04/20 03:36 Labs- All tests 24 hr 10/03/20 10/03/20 10/03/20 16:55 16:55 21:54 WBC 10.9 H RBC 4.39 Hgb 14.3 Hct 41.9 MCV 95 MCH 32.6 MCHC 34.3 RDW 14.7 H Plt Count 313 Lymph % (Auto) Not Reportable [place] % (Auto) Not Reportable Eos % (Auto) Not Reportable Baso % (Auto) Not Reportable Absolute Neuts (auto) Not Reportable Absolute Lymphs (auto) Not Reportable Absolute Monos (auto) Not Reportable Absolute Eos (auto) Not Reportable Absolute Basos (auto) Not Reportable Total Counted 100 Seg Neutrophils % Not Reportable Seg Neuts % (Manual) 68 Lymphocytes % (Manual) 21 Atypical Lymphs % 1 Monocytes % (Manual) 4 Eosinophils % (Manual) 3 Basophils % (Manual) 0 Metamyelocytes % 1 Promyelocytes % 2 H Abs Neuts (Manual) 7.7 Abs Lymphs (Manual) 2.4 Abs Monocytes (Manual) 0.4 Absolute Eos (Manual) 0.3 Abs Basophils (Manual) 0.0 Platelet Comment ADEQUATE Poikilocytosis SLIGHT Anisocytosis SLIGHT Ovalocytes SLIGHT Sodium 135.8 L Potassium 4.0 Chloride 101 Carbon Dioxide 29 Anion Gap 6 BUN 7 Creatinine 0.53 Est GFR ( Amer) > 60 Est GFR (MDRD) Non-Af > 60 Glucose 85 Calcium 9.1 Total Bilirubin 0.4 Direct Bilirubin 0.2 Neonat Total Bilirubin Not Reportable Neonat Direct Bilirubin Not Reportable Neonat Indirect Bili Not Reportable AST 22 ALT 22 Alkaline Phosphatase 87 Total Protein 6.2 L Albumin 3.4 L Lipase 808.8 H Urine Color YELLOW Urine Appearance CLEAR Urine pH 5.0 Ur Specific [place] 1.026 Urine Protein 30 H Urine Glucose (UA) NEGATIVE Urine Ketones NEGATIVE Urine Blood NEGATIVE Urine Nitrite NEGATIVE Urine Bilirubin NEGATIVE Urine Urobilinogen 2.0 H Ur Leukocyte Esterase NEGATIVE Urine WBC (Auto) 0 Urine RBC (Auto) 0 Squamous Epi Cells Auto <1 Urine Mucus (Auto) OCC Urine Ascorbic Acid NEGATIVE Serum Alcohol < 10 - Diagnostic Test Radiology reviewed: Image reviewed, Reports reviewed Discharge - Discharge Clinical Impression: History of Crohn's disease Abdominal pain Qualifiers: Abdominal location: unspecified location Qualified Code(s): R10.9 - Unspecified abdominal pain Diarrhea Qualifiers: Diarrhea type: unspecified type Qualified Code(s): R19.7 - Diarrhea, unspec ified Nausea & vomiting Qualifiers: Vomiting type: unspecified Vomiting Intractability: non-intractable Qualified Code(s): R11.2 - Nausea with vomiting, unspecified Condition: Stable Disposition: HOME, SELF-CARE Instructions: Abdominal Pain ([facility]), Antinausea Medication ([facility]), Crohn's Disease ([facility]), Intravenous (IV) Fluids ([facility]), Pain Medication Injection ([facility]), Vomiting ([facility]) Additional Instructions: Return immediately for any new or worsening symptoms: Fever, vomiting, worsening pain or any concerning new symptoms Followup for colonoscopy and endoscopy procedure as planned Referrals: HARJINDER BANG MD [Primary Care Provider] - 10/04/20
[2020-10-03] MEDS ORDERED: PANTOPRAZOLE SODIUM 40 MG VIAL IV ONE (21:33)
--- NOTE | 2020-10-03 22:04 | RADIOLOGY REPORT (SQ) ---
EXAM DESCRIPTION: XR ABDOMEN 2 VIEWS SUPINE ERECT COMPLETED DATE/TME: 10/03/2020 21:19 CLINICAL HISTORY: 45 years, Male, abd pain, history of Crohn's disease COMPARISON: None. NUMBER OF VIEWS: TECHNIQUE: LIMITATIONS: None. FINDINGS: No evidence of bowel obstruction. No free air. There are no abnormal calcifications. IMPRESSION: No acute finding. copyright 2010 [employer]- All Rights Reserved
[2020-10-03 22:24] LABS: APPEARANCE,URINE CLEAR; BILIRUBIN,URINE NEGATIVE (NEGATIVE); COLOR,URINE YELLOW; GLUCOSE, URINE NEGATIVE (NEGATIVE); KETONES,URINE NEGATIVE (NEGATIVE); LEUKOCYTE ESTERASE,URINE NEGATIVE (NEGATIVE); NITRITE,URINE NEGATIVE (NEGATIVE); PROTEIN,URINE 30 mg/dL (NEGATIVE); URINE SPECIFIC GRAVITY 1.026
[2020-10-04] MEDS ORDERED: MORPHINE SULFATE 10 MG/ML INJ IV ONE (00:19)
[2020-10-04 00:53] VITALS: BP 145/96
[2020-10-04 11:35] LABS: PATH REVIEW PATHOLOGIST REVIEWED
== END 2020-10-04 00:43 | disposition home or self-care (01) ==
LOC: ER 16:09
DX: K50.90 Crohn's disease, unspecified, without complications (principal); R10.13 Epigastric pain; R10.2 Pelvic and perineal pain; R11.2 Nausea with vomiting, unspecified; R19.7 Diarrhea, unspecified; M54.5 Low back pain; R10.817 Generalized abdominal tenderness; F17.200 Nicotine dependence, unspecified, uncomplicated; Z87.19 Personal history of other diseases of the digestive system; Z88.6 Allergy status to analgesic agent; Z88.5 Allergy status to narcotic agent
CPT/HCPCS: 96376; 99284; 96361; 96374; 96375; 36415; 80307; 83690; 85025; 80053; 81001; 74019; J2270 ×2; C9113; J2405; J7030

== ENCOUNTER 2020-10-04 06:56 | Day surgery (SDC) | payer SELFPAY ==
[2020-10-04] MEDS ORDERED: PROPOFOL INJ 200 MG/20 ML VIAL IV ONE (07:41)
[2020-10-04 09:48] VITALS: BP 122/77
--- NOTE | 2020-10-04 10:52 | Operative Report ---
Operative Report DATE OF SURGERY: 10/04/20 Operative Report: The risk, benefits and alternatives of the procedure including the risk of bleeding, perforation requiring surgery have been explained to the patient in detail and informed consent has been obtained. Patient is taken back to the endoscopy suite and placed in left, lateral decubital position. Timeout was called. Propofol medication is administered. Rectal examination is done which did not reveal any masses, tears or fissures. An Olympus videoscope was introduced into the patient's rectum. Scope was then carefully advanced all the way to the cecum. Cecum was identified by the usual anatomical landmarks including the ileocecal valve as well as the appendiceal office. Photodocumentation is obtained. Scope was then sequentially pulled back via the various segments of the colon including the ascending colon, hepatic flexure, transverse colon, splenic flexure, descending colon finding to the rectosigmoid portions of the colon. Retroflexion maneuver is performed. The risks benefits and alternatives of the procedure explained to the patient in detail and informed consent is obtained. A GIF Olympus video scope was inserted into the patient's mouth and hypopharynx ,the esophagus is identified intubated and insufflated, the scope was then advanced through the esophagus stomach and duodenum, retroflexion maneuver is done, the esophagus stomach and first and second portions of the duodenum examined PREOPERATIVE DIAGNOSIS: Abdominal pain, blood in stool POSTOPERATIVE DIAGNOSIS: Colon polyp at hepatic flexure that was removed via snare polypectomy and retrieved. Descending colon polyp that is ablated in situ. Right side colon inflammation status post biopsy rule out colitis. Internal hemorrhoids. Gastritis status post biopsy. Rectal inflammation noted OPERATION: Colonoscopy with snare polypectomy, colonoscopy with biopsy. EGD with biopsy SURGEON: HARJINDER BANG ANESTHESIA: LMAC TISSUE REMOVED OR ALTERED: As noted above. COMPLICATIONS: None. ESTIMATED BLOOD LOSS: None. INTRAOPERATIVE FINDINGS: As noted above. PROCEDURE: Patient tolerated the procedure well. No immediate postprocedure complications are noted. Patient is discharged in good condition. Discharge date 10/04/2020. Discharge diet: Regular. Discharge activity: Regular. 2 to 3-week follow-up to discuss findings. Patient is instructed call the office or proceed to the emergency room should there be any further problems or questions. Wait on the pathology. 5-year surveillance colonoscopy.
== END 2020-10-04 09:32 | disposition home or self-care (01) ==
LOC: END 06:56
PROVIDERS: ATTEND Internal Medicine Gastroenterology
DX: K63.5 Polyp of colon (principal); K31.9 Disease of stomach and duodenum, unspecified; K62.89 Other specified diseases of anus and rectum; K64.8 Other hemorrhoids; K52.9 Noninfective gastroenteritis and colitis, unspecified; K29.70 Gastritis, unspecified, without bleeding; K21.9 Gastro-esophageal reflux disease without esophagitis; B18.2 Chronic viral hepatitis C; K85.20 Alcohol induced acute pancreatitis without necrosis or infection; F17.210 Nicotine dependence, cigarettes, uncomplicated; Z79.899 Other long term (current) drug therapy
CPT/HCPCS: 43239; 45380; 45385; 88342 ×2; 88305 ×2; 00813; J2704; 813

== ENCOUNTER 2020-10-05 11:04 | Emergency (ER) | payer SELFPAY ==
[2020-10-05] MEDS ORDERED: ONDANSETRON 4 MG TAB.RAPDIS PO ONE (11:37)
--- NOTE | 2020-10-05 11:39 | ER Document Report ---
ED Medical Screen (RME) - General Chief Complaint: Abdominal Pain Stated Complaint: ABDOMINAL PAIN, VOMITING Time Seen by Provider: 10/05/20 11:31 Primary Care Provider: HARJINDER BANG MD [Primary Care Provider] - Follow up as needed Mode of Arrival: Ambulatory Information source: Patient Notes: HPI; 45-year-old male with persistent abdominal pain for the past month with multiple ER visit return to the emergency room today complaining of worsening pain, with nausea and vomiting. Patient states he had an upper GI and colonoscopy yesterday with Dr. Bang. States he had 2 polyps removed and was told he had an intestinal infection but was not given any medications for his symptoms. States was told if pain got worse return to the emergency room. States he is taking Tylenol with minimal relief. Negative Covid test 8 days ago with no new COVID-19 exposure. PE: Alert and oriented x3. Lungs: Clear to auscultation without rales, rhonchi, wheezes. Heart: Tachycardic without murmurs, rubs, gallops. I have greeted and performed a rapid initial assessment of this patient. A comprehensive ED assessment and evaluation of the patient, analysis of test results and completion of the medical decision making process will be conducted by additional ED providers. I have specifically instructed the patient or family members with the patient to immediately return to any nursing staff should anything change in the patient's condition or with their chief complaint. TRAVEL OUTSIDE OF THE [place] IN LAST 30 DAYS: No - Related Data Allergies/Adverse Reactions: hydrocodone bitartrate [From Vicodin] Allergy (Intermediate, Verified 10/05/20 11:24) Itching Home Medications: chrons. omeprazole. pancreatitis. sertraline Past Medical History - Social History Chew tobacco use (# tins/day): No Frequency of alcohol use: None Drug Abuse: None Family history: Reviewed & Not Pertinent - Past Medical History Cardiac Medical History: Denies: Hx Coronary Artery Disease, Hx Heart Attack, Hx Hypertension Pulmonary Medical History: Denies: Hx Asthma, Hx Bronchitis, Hx COPD, Hx Pneumonia Neurological Medical History: Denies: Hx Cerebrovascular Accident, Hx Seizures Renal/ Medical History: Denies: Hx Peritoneal Dialysis GI Medical History: Reports: Hx Crohn's Disease, Hx Gastroesophageal Reflux Disease, Hx Hepatitis, Hx Pancreatitis Musculoskeltal Medical History: Denies Hx Arthritis Psychiatric Medical History: Reports: Hx Depression Infectious Medical History: Reports: Hx Hepatitis Past Surgical History: Denies: Hx Pacemaker - Immunizations Immunizations up to date: Yes Hx Diphtheria, Pertussis, Tetanus Vaccination: Yes Physical Exam - Vital signs Vitals: Temp Pulse Resp BP Pulse Ox 98.3 F 114 H 16 156/103 H 100 10/05/20 11:06 10/05/20 11:06 10/05/20 11:06 10/05/20 11:06 10/05/20 11:06 Course - Vital Signs Vital signs: Temp Pulse Resp BP Pulse Ox 98.3 F 114 H 16 156/103 H 100 10/05/20 11:24 10/05/20 11:06 10/05/20 11:06 10/05/20 11:06 10/05/20 11:06 Doctor's Discharge - Discharge Referrals: HARJINDER BANG MD [Primary Care Provider] - Follow up as needed
[2020-10-05] MEDS ORDERED: RINGERS SOLUTION,LACTATED 1,000 ML IV ONE (11:40)
[2020-10-05 12:17] LABS: HEMATOCRIT 44.3 % (37.9-51.0); MEAN CORPUSCULAR HGB CONC 33.8 g/dL (32.0-36.0); MEAN CORPUSCULAR VOLUME 95 fl (80-97); PLATELET COUNT 329 10^3/uL (150-450); RED BLOOD COUNT 4.68 10^6/uL (4.35-5.55); RED CELL DISTRIBUTION WIDTH 14.5 % (11.5-14.0); WHITE BLOOD COUNT 12.7 10^3/uL (4.0-10.5)
[2020-10-05 12:19] LABS: APPEARANCE,URINE CLEAR; BILIRUBIN,URINE NEGATIVE (NEGATIVE); COLOR,URINE YELLOW; GLUCOSE, URINE NEGATIVE (NEGATIVE); KETONES,URINE NEGATIVE (NEGATIVE); LEUKOCYTE ESTERASE,URINE NEGATIVE (NEGATIVE); NITRITE,URINE NEGATIVE (NEGATIVE); PROTEIN,URINE 30 mg/dL (NEGATIVE); URINE SPECIFIC GRAVITY 1.034; UROBILINOGEN,URINE NEGATIVE mg/dL (<2.0)
[2020-10-05 12:30] LABS: ALBUMIN 3.7 g/dL (3.5-5.0); ALKALINE PHOSPHATASE 129 U/L (38-126); ANION GAP 8 (5-19); ASPARTATE AMINO TRANSFERASE 25 U/L (17-59); BILIRUBIN,DIRECT 0.2 mg/dL (0.0-0.4); BILIRUBIN,TOTAL 0.6 mg/dL (0.2-1.3); BLOOD UREA NITROGEN 10 mg/dL (7-20); CALCIUM 9.8 mg/dL (8.4-10.2); CARBON DIOXIDE 22 mmol/L (22-30); CHLORIDE 105 mmol/L (98-107); GLUCOSE 105 mg/dL (75-110); POTASSIUM 4.6 mmol/L (3.6-5.0); TOTAL PROTEIN 6.7 g/dL (6.3-8.2)
--- NOTE | 2020-10-05 12:50 | ER Document Report ---
ED General - General Chief Complaint: Abdominal Pain Stated Complaint: ABDOMINAL PAIN, VOMITING Time Seen by Provider: 10/05/20 11:31 Primary Care Provider: HARJINDER KRISHNAN MD [Primary Care Provider] - Follow up as needed Mode of Arrival: Ambulatory TRAVEL OUTSIDE OF THE [place] IN LAST 30 DAYS: No - HPI Notes: 45-year-old male with a history of hepatitis C, pancreatitis, Crohn's disease and alcoholism presents to the emergency room today for epigastric, left lower quadrant and right lower quadrant abdominal pain that has been persistent for the last month. He reports nausea, vomiting daily. He did have an upper endoscopic done yesterday by Dr. Krishnan, sales utility representative, which he had 2 polyps removed. He was told he had an intestinal infection, he is not sure what kind of medications he is on. Denies any chest pain, shortness of breath. Denies any testicular pain. Patient has had an issue with pancreatitis for the last month. Denies any chest pain, shortness of breath does report nausea, vomiting and his pain is 5 out of 5 . Patient states he has not taken any [id number] medications for pain control. - Related Data Allergies/Adverse Reactions: hydrocodone bitartrate [From Vicodin] Allergy (Intermediate, Verified 10/05/20 11:24) Itching Home Medications: chrons. omeprazole. pancreatitis. sertraline Past Medical History - General Information source: Patient - Social History Smoking Status: Current Every Day Smoker Chew tobacco use (# tins/day): No Frequency of alcohol use: None Drug Abuse: None Family History: Hypertension Patient has homicidal ideation: No - Past Medical History Cardiac Medical History: Denies: Hx Coronary Artery Disease, Hx Heart Attack, Hx Hypertension Pulmonary Medical History: Denies: Hx Asthma, Hx Bronchitis, Hx COPD, Hx Pneumonia Neurological Medical History: Denies: Hx Cerebrovascular Accident, Hx Seizures Renal/ Medical History: Denies: Hx Peritoneal Dialysis GI Medical History: Reports: Hx Crohn's Disease, Hx Gastroesophageal Reflux Dis ease, Hx Hepatitis, Hx Pancreatitis Musculoskeletal Medical History: Denies Hx Arthritis Psychiatric Medical History: Reports: Hx Depression Infectious Medical History: Reports: Hx Hepatitis Past Surgical History: Denies: Hx Pacemaker - Immunizations Immunizations up to date: Yes Hx Diphtheria, Pertussis, Tetanus Vaccination: Yes Hx Pneumococcal Vaccination: 11/01/00 Review of Systems - Review of Systems Constitutional: No symptoms reported EENT: No symptoms reported Cardiovascular: No symptoms reported Respiratory: No symptoms reported Gastrointestinal: See HPI Genitourinary: No symptoms reported Male Genitourinary: No symptoms reported Musculoskeletal: No symptoms reported Skin: No symptoms reported Hematologic/Lymphatic: No symptoms reported Neurological/Psychological: No symptoms reported Physical Exam - Vital signs Vitals: Temp Pulse Resp BP Pulse Ox 98.3 F 114 H 16 156/103 H 100 10/05/20 11:06 10/05/20 11:06 10/05/20 11:06 10/05/20 11:06 10/05/20 11:06 - Notes Notes: MEDICATIONS: I agree with the patient medications as charted by the RN. ALLERGIES: I agree with the allergies as charted by the RN. PAST MEDICAL HISTORY/PAST SURGICAL HISTORY: Reviewed and agree as charted by RN. SOCIAL HISTORY: Reviewed and agree as charted by RN. FAMILY HISTORY: No significant familial comorbid conditions directly related to patient complaint EXAM: Reviewed vital signs as charted by RN. PHYSICAL EXAMINATION:reviewed vital signs by RN GENERAL: Chronically ill malnourished and in no acute distress. HEAD: Atraumatic, normocephalic. EYES: Pupils equal round and reactive to light, extraocular movements intact, sclera anicteric, conjunctiva are normal. ENT: Nares patent, oropharynx clear without exudates. Moist mucous membranes. NECK: Normal range of motion, supple without lymphadenopathy LUNGS: Breath sounds clear to auscultation bilaterally and equal. No wheezes rales or rhonchi. HEART: Regular rate and rhythm without murmurs ABDOMEN: Soft, epigastric, LLQ, RLQ abd pain, nondistended abdomen. No guarding, no rebound. No masses appreciated. No CVA tenderness appreciated bilaterally Musculoskeletal: Normal range of motion, no pitting or edema. No cyanosis. NEUROLOGICAL: Cranial nerves grossly intact. Normal speech, normal gait. Normal sensory, motor exams PSYCH: Normal mood, normal affect. SKIN: Warm, Dry, normal turgor, no rashes or lesions noted. Course - Re-evaluation Re-evalutation: 10/05/20 19:19 Afebrile vital stable in some distress. CBC with a white count of 12.7, no anemia, CMP does show a lipase of 1696, Mikayla are 174. Liver enzymes are unremarkable. CMP negative for renal dysfunction, no electrolyte disturbances. Serum alcohol less than 10. Urinalysis unremarkable. CT abdomen pelvis with IV and oral contrast does show acute pancreatitis with suspicion of necrosis at the pancreatic head. Patient received IV fluids and pain control. Consulted with hospitalist Dr. Boo at 1610 regarding pertinent laboratory diagnostic and clinical findings, he did advise to speak with Dr. Krishnan, sales utility representative who is not diamond sizer and grader, but since it is a mutal patien and he did have an EGD done yesterday, which revealed 2 polyps removed for his insight, Dr. Boo wanted me to contact him. Due to patient having suspicion for necrosis at the pancreatic head, hospitalist spoke with Dr. Caldwell,surgeon diamond sizer and grader, who states he is not comfortable doing surgery due to lack of direct support specialist at this hospital and feels that he does need to be transferred. Consulted Dr. Saúl Call, at 1730, surgeon at [facility] in [place] who accepted patient to his service and will place him in the ICU for monitoring and possible surgery if needed. Patient was agreeable this plan of care and verbalized an understanding of this plan of care. - Vital Signs Vital signs: Temp Pulse Resp BP Pulse Ox 98.3 F 114 H 16 156/103 H 100 10/05/20 11:24 10/05/20 11:06 10/05/20 11:06 10/05/20 11:06 10/05/20 11:06 - Laboratory Result Diagrams: 10/05/20 11:54 10/05/20 11:54 Laboratory results interpreted by me: 10/05/20 10/05/20 10/05/20 11:54 11:54 11:54 WBC 12.7 H RDW 14.5 H Abs Neuts (Manual) 9.9 H Sodium 135.1 L Alkaline Phosphatase 129 H Triglycerides Lipase 1696.5 H Urine Protein 30 H 10/05/20 11:54 WBC RDW Abs Neuts (Manual) Sodium Alkaline Phosphatase Triglycerides 174 H Lipase Urine Protein Discharge - Discharge Clinical Impression: Acute pancreatitis, Pancreatic head suspicion for necrosis Condition: Stable Disposition: [facility] Referrals: HARJINDER KRISHNAN MD [Primary Care Provider] - Follow up as needed
[2020-10-05 12:58] LABS: ABSOLUTE LYMPHOCYTES# (MANUAL) 1.8 10^3/uL (0.5-4.7); ABSOLUTE MONOCYTES # (MANUAL) 0.6 10^3/uL (0.1-1.4); BASOPHILS % (MANUAL) 0 % (0-2); EOSINOPHILS % (MANUAL) 3 % (0-6); LYMPHOCYTES % (MANUAL) 14 % (13-45); MONOCYTES % (MANUAL) 5 % (3-13); SEGMENTED NEUTROPHILS % (MAN) 78 % (42-78); TOTAL CELLS COUNTED 100
[2020-10-05 13:00] LABS: ANISOCYTOSIS SLIGHT; PLATELET COMMENT ADEQUATE; TOXIC GRANULATION 1+
[2020-10-05] MEDS ORDERED: KETOROLAC TROMETHAMINE INJ/PF 30 MG/1 ML SDV IV ONE (13:33)
[2020-10-05] MEDS ORDERED: NORMAL SALINE 1000 ML 1,000 ML IV ONE (13:37)
--- NOTE | 2020-10-05 15:30 | RADIOLOGY REPORT (SQ) ---
EXAM DESCRIPTION: CT ABD/PELVIS WITH IV ONLY IMAGES COMPLETED DATE/TIME: 10/05/2020 2:19 pm REASON FOR STUDY: elevated lipase, abd pain COMPARISON: 09/17/2020 TECHNIQUE: CT scan of the abdomen and pelvis performed using helical scanning technique with dynamic intravenous contrast injection. No oral contrast. Images reviewed with lung, soft tissue, and bone windows. Reconstructed coronal and sagittal MPR images reviewed. Delayed images for evaluation of the urinary system also acquired. All images stored on PACS. All CT scanners at this facility use dose modulation, iterative reconstruction, and/or weight based d osing when appropriate to reduce radiation dose to as low as reasonably achievable (ALARA). [facility]: Dose Right [facility]: CareDose [facility]: Dose Right [facility]: Teradose 4D [facility]: Petcube CONTRAST TYPE AND DOSE: contrast/concentration: Isovue 350.00 mmol/ml; Total Contrast Delivered: 59. 0 ml; Total Saline Delivered: 65.0 ml RENAL FUNCTION: GFR > 60. RADIATION DOSE: CT Rad equipment meets quality standard of care and radiation dose reduction techniq ues were employed. CTDIvol: 4.8 - 5.0 mGy. DLP: 531 mGy-cm.. LIMITATIONS: None. FINDINGS: Inflammatory changes surrounding the head of the pancreas with heterogeneous focal areas o f low attenuation in the pancreatic head suspicious for necrosis. Duct diameter upper limits of norm al at the level of the superior mesenteric vein. No pseudocyst. Less pronounced dilatation of the 2 nd and 3rd portions of the duodenum. Appearance is otherwise unchanged. IMPRESSION: Persistent/recurrent acute pancreatitis with subtle areas in the pancreatic head suspici ous for necrosis. TECHNICAL DOCUMENTATION: JOB ID: [id number] Quality ID # [id number]: Final reports with documentation of one or more dose reduction techniques (e.g., Au tomated exposure control, adjustment of the mA and/or kV according to patient size, use of iterative reconstruction technique) 2010 [employer]- All Rights Reserved Reading location - IP/workstation name: [email or web address]
[2020-10-05] MEDS ORDERED: ONDANSETRON HCL INJ/PF 4 MG/2 ML SDV IV ONE (17:31)
[2020-10-05] MEDS ORDERED: MORPHINE SULFATE 10 MG/ML INJ IV ONE ×2 (17:31→18:55)
[2020-10-05 18:00] VITALS: BP 152/92
--- NOTE | 2020-10-05 21:01 | ER Document Report ---
Doctor's Note Notes: 10/05/20 21:00 [facility] This MD went to the patient's bedside he is being put on the stretcher, he is awake alert and oriented x3. He appears to be in no acute distress at this time and appears stable for transfer.
== END 2020-10-05 21:04 | disposition short-term general hospital (02) ==
LOC: ER 11:04
DX: K85.90 Acute pancreatitis without necrosis or infection, unspecified (principal); K50.90 Crohn's disease, unspecified, without complications; K21.9 Gastro-esophageal reflux disease without esophagitis; F32.9 Major depressive disorder, single episode, unspecified; F10.21 Alcohol dependence, in remission; Y90.0 Blood alcohol level of less than 20 mg/100 ml; R10.31 Right lower quadrant pain; R10.32 Left lower quadrant pain; R11.2 Nausea with vomiting, unspecified; F17.200 Nicotine dependence, unspecified, uncomplicated; Z79.899 Other long term (current) drug therapy; Z98.890 Other specified postprocedural states
CPT/HCPCS: 99285; 96361; 96374; 96375; 36415; 80307; 83690; 84478; 85025; 80053; 81001; 74177; S0119; J1885; J2270; J2405; J7030; J7120